=== PATIENT | female | born 1935 | race Caucasian/White ===

== ENCOUNTER 2017-04-18 07:24 | Inpatient (IN) | payer MEDICARE, OTHER ==
[2017-04-18] VITALS (8 sets, daily range): BP systolic 107–155; BP diastolic 57–88; PULSE 64–102; RESP 16–18; TEMP 95.6–100.5; O2SAT 92–99
[~2017-04-18] VITALS: Ht 157.5 cm; Wt 51.2 kg
[~2017-04-18 07:24] MED LIST: ACET325T PO; ASPI-516 CHEW; CIPR250T2 PO; CITA10TA4 PO; DIVA125C2 PO; FOSA70TA PO; METO1TAB42 PO; MILKSUS PO; QUET1TAB7 PO; VITATAB11
[2017-04-18] MEDS ORDERED: PANTOPRAZOLE INJ 80 MG in SODIUM CHLORIDE 0.9% INJ 100 ML IV SCH (07:45)
[2017-04-18] MEDS ORDERED: ONDANSETRON HCL 4 MG/2 ML VIAL IVP ONE (07:45)
[2017-04-18] MEDS ORDERED: PANTOPRAZOLE INJ 80 MG in SODIUM CHLORIDE 0.9% INJ 35 ML IV ONE (07:45)
[2017-04-18] MEDS ORDERED: SODIUM CHLOR 0.9% 1000 ML INJ 1,000 ML IV ONE (07:45)
[2017-04-18] MEDS ORDERED: SODIUM CHLORIDE 0.9% FLUSH 10 ML FLUSH IV FLUSH PRN ×2 (07:45→11:15)
[2017-04-18 08:03] LABS: AUTOMATED NEUTROPHIL # 9.7 TH/MM3 (1.8-7.7); BASOPHIL # 0.1 TH/MM3 (0-0.2); BASOPHIL % 0.5 % (0.0-2.0); EOSINOPHIL # 0.1 TH/MM3 (0-0.4); EOSINOPHIL % 0.5 % (0.0-4.0); HEMO FLAGS DIFF FINAL; LYMPH % 9.9 % (9.0-44.0); LYMPHOCYTE # 1.1 TH/MM3 (1.0-4.8); MEAN CORPUSCULAR HEMOGLOBIN 33.7 PG (27.0-34.0); MEAN CORPUSCULAR HGB CONC 33.8 % (32.0-36.0); MONO % 3.6 % (0.0-8.0); NEUT % 85.5 % (16.0-70.0); PLATELET COUNT 344 TH/MM3 (150-450); RED CELL DISTRIBUTION WIDTH 13.1 % (11.6-17.2); WHITE BLOOD COUNT 11.3 TH/MM3 (4.0-11.0)
[2017-04-18 08:12] LABS: APTT (PATIENT) 24.4 SEC (24.3-30.1); INTERNATIONAL NORMALIZED RATIO 0.9 RATIO; PROTHROMBIN TIME - PATIENT 10.3 SEC (9.8-11.6)
[2017-04-18 08:18] LABS: ALKALINE PHOSPHATASE 73 U/L (45-117); TOTAL BILIRUBIN ADULT 0.4 MG/DL (0.2-1.0)
[2017-04-18 08:24] LABS: ALT (GPT) 19 U/L (10-53); ANION GAP 9 MEQ/L (5-15); AST (GOT) 30 U/L (15-37); BLOOD UREA NITROGEN 30 MG/DL (7-18); CHLORIDE 105 MEQ/L (98-107); GLOMERULAR FILTRATION RATE 48 ML/MIN (>89); SODIUM (NA) 139 MEQ/L (136-145)
--- NOTE | 2017-04-18 08:24 | RADRPT ---
EXAM DATE/TIME: 04/18/2017 08:06 [facility] COMPARISON: CT BRAIN W/O CONTRAST, April 06, 2016, 0:49. INDICATIONS : Altered mental status. RADIATION DOSE: 53.36 CTDIvol (mGy) MEDICAL HISTORY : Hypertension. Dementia. SURGICAL HISTORY : Craniotomy. ENCOUNTER: Initial ACUITY: 1 day PAIN SCALE: Non-responsive LOCATION: cranial TECHNIQUE: Multiple contiguous axial images were obtained of the head. Using automated exposure control and adj ustment of the mA and/or kV according to patient size, radiation dose was kept as low as reasonably a chievable to obtain optimal diagnostic quality images. DICOM format image data is available electro nically for review and comparison. FINDINGS: CEREBRUM: Large area of encephalomalacia in the right posterior temporal, parietal and occipital lobe. Basal ga nglia infarcts right side. Scattered areas of low attenuation throughout the white matter. The ventri cles are normal for age. No evidence of midline shift, mass lesion, hemorrhage or acute infarction. No extra-axial fluid collections are seen. POSTERIOR FOSSA: The cerebellum and brainstem are intact. The 4th ventricle is midline. The cerebellopontine angle i s unremarkable. EXTRACRANIAL: The visualized portion of the orbits is intact. SKULL: The calvaria is intact. No evidence of skull fracture. CONCLUSION: 1. 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 2. No acute intracranial abnormality. Abram Johnson MD on April 18, 2017 at 8:20 Board Certified Radiologist. This report was verified electronically.
[2017-04-18 08:25] LABS: POTASSIUM 4.4 MEQ/L (3.5-5.1)
--- NOTE | 2017-04-18 08:40 | RADRPT ---
EXAM DATE/TIME: 04/18/2017 08:09 [facility] COMPARISON: No previous studies available for comparison. INDICATIONS : Generalized abdominal pain. ORAL CONTRAST: No oral contrast ingested. RADIATION DOSE: 6.67 CTDIvol (mGy) MEDICAL HISTORY : Hypertension. Dementia. SURGICAL HISTORY : Craniotomy. ENCOUNTER: Initial ACUITY: 1 day PAIN SCALE: Non-responsive LOCATION: abdomen TECHNIQUE: Volumetric scanning of the abdomen and pelvis was performed. Using automated exposure control and ad justment of the mA and/or kV according to patient size, radiation dose was kept as low as reasonably achievable to obtain optimal diagnostic quality images. DICOM format image data is available electro nically for review and comparison. FINDINGS: LOWER LUNGS: The visualized lower lungs are clear. LIVER: Homogeneous density without lesion. There is no dilation of the biliary tree. Cholecystectomy. SPLEEN: Normal size without lesion. PANCREAS: Within normal limits. KIDNEYS: Normal in size and shape. There is no mass, stone, or hydronephrosis. ADRENAL GLANDS: Within normal limits. VASCULAR: There is no aortic aneurysm. Extensive atherosclerotic changes and tortuosity. BOWEL/MESENTERY: Diverticulosis without diverticulitis. Small hiatal hernia. There is no free intraperitoneal air or f luid. ABDOMINAL WALL: Within normal limits. RETROPERITONEUM: There is no lymphadenopathy. BLADDER: No wall thickening or mass. Decompressed by Juarez catheter. REPRODUCTIVE: Within normal limits. INGUINAL: There is no lymphadenopathy or hernia. MUSCULOSKELETAL: Scoliosis with multilevel degenerative changes of the thoracolumbar spine. Osteopenia. Kyphoplasty ce ment within T12 and L1 where there are old compression fractures. Mild loss of height of L4. CONCLUSION: 1. Diverticulosis without diverticulitis. 2. Status post cholecystectomy. 3. Small hiatal hernia. Abram Johnson MD on April 18, 2017 at 8:29 Board Certified Radiologist. This report was verified electronically.
[2017-04-18] MEDS ORDERED: PIPERACIL-TAZO 3.375 GM PREMIX 50 ML IV ONE (09:30)
[2017-04-18 09:31] LABS: BLOOD, URINE TRACE (NEG); GLUCOSE,URINE 70 mg/dL (NEG); KETONE, URINE NEG (NEG); NITRITE,URINE NEG (NEG); URINE COLOR YELLOW (YELLW/STRAW)
[2017-04-18 09:50] LABS: BACTERIA, URINE MOD /hpf; RBC, URINE 0-3 /hpf (0-3); SQUAMOUS EPITHELIAL CELL URINE > 8 /hpf (0-5)
[2017-04-18 09:51] LABS: COMMENT (UR) CULTURE INDICATED; CULTURE IF INDICATED CULTURE INDICATED
--- NOTE | 2017-04-18 09:53 | RADRPT ---
EXAM DATE/TIME: 04/18/2017 09:29 [facility] COMPARISON: CHEST SINGLE AP, April 05, 2016, 23:43. ABDOMEN DECUBITUS LEFT, April 06, 2016, 4:49. INDICATIONS : Fever. MEDICAL HISTORY : None. SURGICAL HISTORY : None. ENCOUNTER: Initial ACUITY: 1 day PAIN SCORE: Non-responsive. LOCATION: Bilateral chest FINDINGS: No heart is at the upper limits of normal in size. There mild chronic interstitial changes within the parenchyma. The lungs are otherwise clear. The visualized bony structures demonstrate degenerative c hanges in the shoulders but are otherwise intact. CONCLUSION: 1. No acute cardiopulmonary findings. Galo Elizalde MD on April 18, 2017 at 9:49 Board Certified Radiologist. This report was verified electronically.
--- NOTE | 2017-04-18 10:23 | PD ---
HPI Chief Complaint: GI Complaint Time Seen by Provider: 07:31 Travel History International Travel<30 days: No Contact w/Intl Traveler<30days: No Traveled to known affect area: No History of Present Illness HPI Patient is an 82-year-old female [facility] after an episode of vomiting and diarrhea. Per EMS staff was helping her base when she had an episode of vomiting bright red blood and an episode of loose stool. EMS states that her blood pressure was low on their arrival, but improved with positioning and by the time she came to the emergency department and had improved further after only 100 cc of IV fluid. Patient has history of dementia , but usually is awake and alert. Currently she opens her eyes when spoken to, but does not answer any questions. PFSH Past Medical History Anemia: Yes Arthritis: Yes (OSTEO) Anxiety: Yes Depression: Yes Heart Rhythm Problems: Yes (DIRYTHMIC DISORDER) Cardiovascular Problems: Yes (HTN) Dementia: Yes Diminished Hearing: No GERD: Yes Hypertension: Yes Neurologic: Yes (Demantia) Psychiatric: Yes Social History Alcohol Use: No Tobacco Use: No Substance Use: No Allergies-Medications (Allergen,Severity, Reaction): Coded Allergies: atorvastatin (Unverified Allergy, Unknown, 01/14/17) clotrimazole (Unverified Allergy, Unknown, 01/14/17) diltiazem (Unverified Allergy, Unknown, 01/14/17) iodine (Unverified Allergy, Unknown, 01/14/17) meperidine (Unverified Allergy, Unknown, 01/14/17) nifedipine (Unverified Allergy, Unknown, 01/14/17) potassium iodide (Unverified Allergy, Unknown, 01/14/17) povidone-iodine (Unverified Allergy, Unknown, 01/14/17) propranolol (Unverified Allergy, Unknown, 01/14/17) sertraline (Unverified Allergy, Unknown, 01/14/17) sodium iodide (Unverified Allergy, Unknown, 01/14/17) sodium iodide (Unverified Allergy, Unknown, 01/14/17) Reported Meds & Prescriptions Reported Meds & Active Scripts Active Ciprofloxacin (Ciprofloxacin HCl) 250 Mg Tab 250 Mg PO BID Reported Quetiapine (Quetiapine Fumarate) 25 Mg Tab 25 Mg PO DAILY Acetaminophen 325 Mg Tab 325 Mg PO Q4-6H PRN Divalproex DR (Divalproex Sodium) 125 Mg Capdr 125 Mg PO BID Metoprolol Succinate ER 24 HR (Metoprolol Succinate) 25 Mg Tab 12.5 Mg PO DAILY Vitamin B Complex (B-Complex Vitamins) 1 Tab DAILY Milk of Frantz Liq (Magnesium Hydroxide) 400 Mg/5 Ml Susp 30 Ml PO DAILY PRN Fosamax (Alendronate Sodium) 70 Mg Tab 35 Mg PO Q7D Citalopram (Citalopram Hydrobromide) 10 Mg Tab 10 Mg PO DAILY Aspirin 81 Mg Chew 81 Mg CHEW DAILY Review of Systems ROS Limitations: Clinical Condition Physical Exam Narrative GENERAL: Patient is an 82-year-old female, sleeping but opens her eyes when spoken to. In no acute distress. SKIN: Focused skin assessment warm/dry. No signs of infection. HEAD: Atraumatic. Normocephalic. EYES: Pupils equal and round and reactive. No scleral icterus. ENT: Mucous membranes pink and moist. NECK: Trachea midline. No JVD. CARDIOVASCULAR: Regular rate and rhythm. No murmur appreciated. RESPIRATORY: No accessory muscle use. Clear to auscultation. Breath sounds equal bilaterally. GASTROINTESTINAL: Abdomen soft, non-tender, nondistended. Stool is black and tarry but negative for occult blood. MUSCULOSKELETAL: No obvious deformities. No clubbing. No cyanosis. No edema. NEUROLOGICAL: Awake and alert. No obvious cranial nerve deficits. Motor grossly within normal limits. Normal speech. PSYCHIATRIC: Appropriate mood and affect; insight and judgment normal. Data Data Last Documented VS Vital Signs Date Time Temp Pulse Resp B/P (MAP) Pulse Ox O2 Delivery O2 Flow Rate FiO2 04/18/17 10:24 96.3 81 16 123/82 (96) 95 Nasal Cannula 2.00 Orders Orders Complete Blood Count With Diff (04/18/17 07:32) Comprehensive Metabolic Panel (04/18/17 07:32) Lactic Acid (04/18/17 07:32) Prothrombin Time / Inr (Pt) (04/18/17 07:32) Act Partial Throm Time (Ptt) (04/18/17 07:32) Urinalysis - C+S If Indicated (04/18/17 07:32) Iv Access Insert/Monitor (04/18/17 07:32) Ecg Monitoring (04/18/17 07:32) Oximetry (04/18/17 07:32) Ondansetron Inj (Zofran Inj) (04/18/17 07:45) Sodium Chloride 0.9% Flush (Ns Flush) (04/18/17 07:45) Electrocardiogram (04/18/17 07:32) Troponin I (04/18/17 07:32) Type And Screen (04/18/17 07:32) Sodium Chlor 0.9% 1000 Ml Inj (Ns 1000 M (04/18/17 07:45) Pantoprazole Inj (Protonix Inj) (04/18/17 07:45) Pantoprazole Inj (Protonix Inj) (04/18/17 07:45) Urinary Catheter Management OLIVIA.Q8H (04/18/17 07:33) Ct Abd/Pel W/O Iv Contrast (04/18/17 ) Ct Brain W/O Iv Contrast(Rout) (04/18/17 ) Chest, Single Ap (04/18/17 ) Warming [place] / Warming Syst PRN (04/18/17 09:22) Piperacil-Tazo 3.375 Gm Premix (Zosyn 3. (04/18/17 09:30) Blood Culture (04/18/17 09:22) Urine Culture (04/18/17 09:10) Admit Order (Ed Use Only) (04/18/17 ) Comprehensive Metabolic Panel (04/19/17 06:00) Free Thyroxine (T4) (04/19/17 06:00) Hemoglobin (Hgb) A1c (04/19/17 06:00) Magnesium (Mg) (04/19/17 06:00) Phosphorus (Po4) (04/19/17 06:00) Thyroid Stimulating Hormone (04/19/17 06:00) Complete Blood Count With Diff (04/19/17 06:00) Insulin Aspart Supplemtl Scale (Novolog (04/18/17 12:00) Bedside Glucose OLIVIA.CSUGAR (04/18/17 11:08) Blood Glucose Goal (Criteria) (04/18/17 11:08) Hypoglycemia 70 Mg/Dl Or < (04/18/17 11:08) Notify Dr: Other (04/18/17 11:08) Dextrose 50% In Jesus (Vial) Inj (D50w (Vi (04/18/17 11:15) Glucagon Inj (Glucagon Inj) (04/18/17 11:15) Case Management Consult (04/18/17 ) Labs Laboratory Tests Test 04/18/17 07:42 04/18/17 09:10 White Blood Count 11.3 TH/MM3 Red Blood Count 3.80 MIL/MM3 Hemoglobin 12.8 GM/DL Hematocrit 38.0 % Mean Corpuscular Volume 100.0 FL Mean Corpuscular Hemoglobin 33.7 PG Mean Corpuscular Hemoglobin Concent 33.8 % Red Cell Distribution Width 13.1 % Platelet Count 344 TH/MM3 Mean Platelet Volume 8.3 FL Neutrophils (%) (Auto) 85.5 % Lymphocytes (%) (Auto) 9.9 % Monocytes (%) (Auto) 3.6 % Eosinophils (%) (Auto) 0.5 % Basophils (%) (Auto) 0.5 % Neutrophils # (Auto) 9.7 TH/MM3 Lymphocytes # (Auto) 1.1 TH/MM3 Monocytes # (Auto) 0.4 TH/MM3 Eosinophils # (Auto) 0.1 TH/MM3 Basophils # (Auto) 0.1 TH/MM3 CBC Comment DIFF FINAL Differential Comment Prothrombin Time 10.3 SEC Prothromb Time International Ratio 0.9 RATIO Activated Partial Thromboplast Time 24.4 SEC Blood Urea Nitrogen 30 MG/DL Creatinine 1.08 MG/DL Random Glucose 172 MG/DL Total Protein 7.3 GM/DL Albumin 3.0 GM/DL Calcium Level 9.1 MG/DL Alkaline Phosphatase 73 U/L Aspartate Amino Transf (AST/SGOT) 30 U/L Alanine Aminotransferase (ALT/SGPT) 19 U/L Total Bilirubin 0.4 MG/DL Sodium Level 139 MEQ/L Potassium Level 4.4 MEQ/L Chloride Level 105 MEQ/L Carbon Dioxide Level 25.0 MEQ/L Anion Gap 9 MEQ/L Estimat Glomerular Filtration Rate 48 ML/MIN Lactic Acid Level 2.5 mmol/L Troponin I LESS THAN 0.02 NG/ML Urine Color YELLOW Urine Turbidity HAZY Urine pH 8.0 Urine Specific [place] 1.013 Urine Protein 30 mg/dL Urine Glucose (UA) 70 mg/dL Urine Ketones NEG mg/dL Urine Occult Blood TRACE Urine Nitrite NEG Urine Bilirubin NEG Urine Urobilinogen LESS THAN 2.0 MG/DL Urine Leukocyte Esterase MOD Urine RBC 0-3 /hpf Urine WBC 25-49 /hpf Urine Squamous Epithelial Cells > 8 /hpf Urine Amorphous Sediment SMALL Urine Bacteria MOD /hpf Urine Hyaline Casts 6-9 /lpf Microscopic Urinalysis Comment CULTURE INDICATED MDM Medical Decision Making Medical Screen Exam Complete: Yes Emergency Medical Condition: Yes Medical Record Reviewed: Yes Interpretation(s) ECG shows normal sinus rhythm with occasional PVCs, no ST elevation or depression Differential Diagnosis Sepsis versus ICH versus GI bleed versus pneumonia versus UTI Narrative Course Patient is an 82-year-old female [facility] after an episode of vomiting and diarrhea. There is no blood in her stool. Exam shows a somewhat lethargic woman, who awakens easily to verbal stimuli. IV established, labs sent. White blood cell count is 11.3. Urinalysis positive for UTI. Lactic acid and creatinine is within normal limits. CT head and abdomen and pelvis show no acute abnormalities. Patient given IV fluids, given a dose of Zosyn to cover broadly prior to source being identified. Patient admitted for UTI with sepsis. Diagnosis Primary Impression: UTI (urinary tract infection) Qualified Codes: N30.00 - Acute cystitis without hematuria Additional Impression: Sepsis Qualified Codes: A41.9 - Sepsis, unspecified organism Admitting Information Admitting Physician Requests: Admit Park Celestin MD Apr 18, 2017 10:23
[2017-04-18] MEDS ORDERED: ACETAMINOPHEN 325 MG TAB PO PRN (11:15)
[2017-04-18] MEDS ORDERED: MORPHINE SULFATE 4 MG/ML INJ IV PUSH PRN ×2 (11:15)
[2017-04-18] MEDS ORDERED: GLUCAGON 1 MG/ML VIAL OTHER PRN (11:15)
[2017-04-18] MEDS ORDERED: NALOXONE HCL 0.4 MG/ML AMP IV PUSH PRN (11:15)
[2017-04-18] MEDS ORDERED: ACETAMINOPHEN/HYDROcodone 325 MG/10 MG TAB PO PRN (11:15)
[2017-04-18] MEDS ORDERED: BISACODYL 10 MG SUPP RECTAL PRN (11:15)
[2017-04-18] MEDS ORDERED: PROCHLORPERAZINE 25 MG SUPP RECTAL PRN (11:15)
[2017-04-18] MEDS ORDERED: SENNOSIDES 8.6 MG TAB PO PRN (11:15)
[2017-04-18] MEDS ORDERED: ACETAMINOPHEN/HYDROcodone 325 MG/5 MG TAB PO PRN (11:15)
[2017-04-18] MEDS ORDERED: MAGNESIUM HYDROXIDE SUSP 30 ML CUP PO PRN (11:15)
[2017-04-18] MEDS ORDERED: DEXTROSE 50% IN WATER 50 ML VIAL(D50) IV PUSH PRN (11:15)
[2017-04-18] MEDS ORDERED: ONDANSETRON HCL 4 MG/2 ML VIAL IVP PRN (11:15)
[2017-04-18] MEDS ORDERED: LACTULOSE SYRUP 20 GM/30 ML CUP PO PRN (11:15)
[2017-04-18] MEDS ORDERED: PILL SPLITTER OTHER PRN (11:45)
[2017-04-18] MEDS: SODIUM CHLOR 0.9% 1000 ML INJ 1,000 ML IV SCH ×2 (11:54→22:17)
[2017-04-18] MEDS ORDERED: cefTRIAXone INJ 1,000 MG in SODIUM CHLORIDE 0.9% INJ 100 ML IV SCH (12:00)
[2017-04-18] MEDS: INSULIN ASPART SUPPLEMENTAL SCALE SQ SCH ×3 (12:00→22:19)
[2017-04-18] MEDS: ASPIRIN 81 MG CHEW TAB CHEW SCH (12:43)
--- NOTE | 2017-04-18 14:26 | HHI.HP ---
[facility] [place] No Primary Care Physician Admission Diagnosis UTI, Sepsis Diagnoses: (1) Alzheimer's dementia Diagnosis: Secondary (2) UTI (urinary tract infection) Diagnosis: Principal (3) Sepsis Diagnosis: Principal (4) Vomiting Diagnosis: Secondary (5) Altered mental status Diagnosis: Principal (6) Hypertension Diagnosis: Secondary (7) GERD (gastroesophageal reflux disease) Diagnosis: Secondary (8) Depression Diagnosis: Secondary (9) Anxiety Diagnosis: Secondary Chief Complaint: GI complaint Travel History International Travel<30 Days: No Contact w/Intl Traveler <30 Da: No Traveled to Known Affected Are: No Sepsis Criteria SIRS Criteria (2 or more): Heart rate over 90 Sepsis Criteria (SIRS+source): Infect source susp/known Severe Sepsis (+one): Lactate >2 History of Present Illness Patient is an 82-year-old female [facility] after an episode of vomiting and diarrhea. Per EMS staff was helpful at her baseline had some episode of vomiting and episode of loose stools and has states the blood pressure was low on arrival but improved with positioning and by the time she came to emergency department and improved to almost normal with only 100 mL's of IV fluid has history of dementia usually awake and alert and able to follow some commands and moves all 4 extremities Was found to have urinary tract infection and will be admitted and treated with Rocephin. Patient is also noted to be a DO NOT RESUSCITATE. The paperwork has been red and made a DO NOT RESUSCITATE here Discussed with the patient are N and the emergency room physician Review of Systems ROS Limitations: Altered Mental Status Constitutional: DENIES: Diaphoretic episodes, Fatigue, Fever, Weight gain, Weight loss Endocrine: DENIES: Abnorml menstrual pattern, Heat/cold intolerance Eyes: DENIES: Blurred vision, Diplopia, Eye inflammation Ears, nose, mouth, throat: DENIES: Tinnitus, Hearing loss, Vertigo, Odynophagia Respiratory: DENIES: Apneas, Cough, Snoring Cardiovascular: DENIES: Chest pain, Palpitations, Syncope Gastrointestinal: COMPLAINS OF: Nausea, Vomiting, DENIES: Abdominal pain, Black stools, Bloody stools, Constipation, Diarrhea Musculoskeletal: DENIES: Joint pain, Muscle aches, Stiffness Integumentary: DENIES: Abnormal pigmentation, Pruritus Hematologic/lymphatic: DENIES: Bruising, Lymphadenopathy Immunologic/allergic: DENIES: Eczema Psychiatric: COMPLAINS OF: Anxiety, Confusion, Depression Except as stated in HPI: all other systems reviewed are Neg Past Family Social History Past Medical History Anemia by history Osteoarthritis Anxiety Depression Dementia Hypertension GERD Dementia History of cardiac rhythm issues Past Surgical History Brain surgery in 2007 Cholecystectomy Reported Medications Reported Meds & Active Scripts Active Ciprofloxacin (Ciprofloxacin HCl) 250 Mg Tab 250 Mg PO BID Reported Quetiapine (Quetiapine Fumarate) 25 Mg Tab 25 Mg PO DAILY Acetaminophen 325 Mg Tab 325 Mg PO Q4-6H PRN Divalproex DR (Divalproex Sodium) 125 Mg Capdr 125 Mg PO BID Metoprolol Succinate ER 24 HR (Metoprolol Succinate) 25 Mg Tab 12.5 Mg PO DAILY Vitamin B Complex (B-Complex Vitamins) 1 Tab DAILY Milk of Magnesia Liq (Magnesium Hydroxide) 400 Mg/5 Ml Susp 30 Ml PO DAILY PRN Fosamax (Alendronate Sodium) 70 Mg Tab 35 Mg PO Q7D Citalopram (Citalopram Hydrobromide) 10 Mg Tab 10 Mg PO DAILY Aspirin 81 Mg Chew 81 Mg CHEW DAILY Allergies: Coded Allergies: atorvastatin (Unverified Allergy, Unknown, 01/14/17) clotrimazole (Unverified Allergy, Unknown, 01/14/17) diltiazem (Unverified Allergy, Unknown, 01/14/17) iodine (Unverified Allergy, Unknown, 01/14/17) meperidine (Unverified Allergy, Unknown, 01/14/17) nifedipine (Unverified Allergy, Unknown, 01/14/17) potassium iodide (Unverified Allergy, Unknown, 01/14/17) povidone-iodine (Unverified Allergy, Unknown, 01/14/17) propranolol (Unverified Allergy, Unknown, 01/14/17) sertraline (Unverified Allergy, Unknown, 01/14/17) sodium iodide (Unverified Allergy, Unknown, 01/14/17) sodium iodide (Unverified Allergy, Unknown, 01/14/17) Active Ordered Medications Current Medications Ondansetron HCl (Zofran Inj) 4 mg ONCE ONCE IVP Last administered on 08:59; Start 04/18/17 at 07:45; Stop 04/18/17 at 07:46; Status DC Sodium Chloride (NS Flush) 2 ml UNSCH PRN IV FLUSH FLUSH AFTER USING IV ACCESS ; Start 04/18/17 at 07:45; Stop 04/18/17 at 11:35; Status DC Sodium Chloride 1,000 ml @ 999 mls/hr BOLUS ONCE IV Last administered on 08:00; Start 04/18/17 at 07:45; Stop 04/18/17 at 08:45; Status DC Pantoprazole Sodium 80 mg/ Sodium Chloride 100 ml @ 10 mls/hr CONTINUOUS IV Last administered on 04/18/17 10:29; Start 04/18/17 at 07:45 Pantoprazole Sodium 80 mg/ Sodium Chloride 35 ml @ 420 mls/hr BOLUS ONCE IV Last administered on 04/18/17 08:58; Start 04/18/17 at 07:45; Stop 04/18/17 at 07:49; Status DC Piperacillin Sod/ Tazobactam Sod 50 ml @ 100 mls/hr ONCE ONCE IV Last administered on 04/18/17 09:30; Start 04/18/17 at 09:30; Stop 04/18/17 at 09 :59; Status DC Insulin Aspart (NovoLOG SUPPLEMENTAL SCALE) 1 ACHS SLIDING SCALE SQ ; Start at 12:00 Dextrose (D50w (Vial) Inj) 50 ml UNSCH PRN IV PUSH HYPOGLYCEMIA-SEE COMMENTS; Start 04/18/17 at 11:15 Glucagon (Glucagon Inj) 1 mg UNSCH PRN OTHER HYPOGLYCEMIA-SEE COMMENTS; Start 04/18/17 at 11:15 Sodium Chloride 1,000 ml @ 100 mls/hr Q10H IV Last administered on 04/18/17 11:54; Start 04/18/17 at 11:08 Sodium Chloride (NS Flush) 2 ml UNSCH PRN IV FLUSH FLUSH AFTER USING IV ACCESS ; Start 04/18/17 at 11:15 Sodium Chloride (NS Flush) 2 ml BID IV FLUSH ; Start 04/18/17 at 21:00 Acetaminophen (Tylenol) 650 mg Q4H PRN PO TEMP > 100.4; Start 04/18/17 at 11: 15 Ondansetron HCl (Zofran Inj) 4 mg Q6H PRN IVP NAUSEA OR VOMITING; Start at 11:15 Prochlorperazine (Compazine Supp) 25 mg Q12H PRN RECTAL NAUSEA OR VOMITING; Start 04/18/17 at 11:15 Enoxaparin Sodium (Lovenox Inj) 30 mg Q24H SQ ; Start 04/18/17 at 12:00 Acetaminophen (Tylenol) 650 mg Q6H PRN PO PAIN SCALE 1 TO 2; Start 04/18/17 at 11:15 Acetaminophen/ Hydrocodone Bitart ([place] 5-325 Mg) 1 tab Q4H PRN PO PAIN SCALE 3 TO 5; Start 04/18/17 at 11:15 Acetaminophen/ Hydrocodone Bitart ([place] 10-325 Mg) 1 tab Q4H PRN PO PAIN SCALE 6 TO 10; Start 04/18/17 at 11:15 Morphine Sulfate (Morphine Inj) 2 mg Q3H PRN IV PUSH Pain 3-5; if unable to take PO; Start 04/18/17 at 11:15 Morphine Sulfate (Morphine Inj) 4 mg Q3H PRN IV PUSH Pain 6-10;if unable to take PO; Start 04/18/17 at 11:15 Naloxone HCl (Narcan Inj) 0.4 mg UNSCH PRN IV PUSH SEE LABEL COMMENTS; Start 04/18/17 at 11:15 Senna/Docusate Sodium (Genevieve-Colace) 1 tab BID PO ; Start 04/18/17 at 21:00 Magnesium Hydroxide (Milk Of Magnesia Liq) 30 ml Q12H PRN PO Mild constipation ; Start 04/18/17 at 11:15 Sennosides (Senokot) 17.2 mg Q12H PRN PO Moderate constipation; Start at 11:15 Bisacodyl (Dulcolax Supp) 10 mg DAILY PRN RECTAL SEVERE CONSITIPATION; Start 04/18/17 at 11:15 Lactulose (Lactulose Liq) 30 ml DAILY PRN PO SEVERE CONSITIPATION; Start 04/18 at 11:15 Aspirin (Aspirin Chew) 81 mg DAILY CHEW Last administered on 04/18/17t 12:43; Start 04/18/17 at 12:00 Citalopram Hydrobromide (CeleXA) 10 mg DAILY PO ; Start 04/18/17 at 12:00 Divalproex Sodium (Depakote Sprinkles) 125 mg BID PO ; Start 04/18/17 at 12:00 Metoprolol Succinate (Toprol Xl) 12.5 mg DAILY PO ; Start 04/18/17 at 12:00 Quetiapine Fumarate (SEROquel) 25 mg DAILY PO ; Start 04/18/17 at 12:00 Ceftriaxone Sodium 1000 mg/ Sodium Chloride 100 ml @ 200 mls/hr Q24H IV Last administered on 04/18/17t 12:43; Start 04/18/17 at 12:00 Miscellaneous (Pill Splitter) 1 ea UNSCH PRN OTHER SEE LABEL COMMENTS; Start 04/18/17 at 11:45 Family History Unobtainable from the patient Social History Lives in a halfway facility does not smoke does not drink or use illicit drugs Physical Exam Vital Signs Vital Signs Date Time Temp Pulse Resp B/P (MAP) Pulse Ox O2 Delivery O2 Flow Rate FiO2 04/18/17 12:12 96 Nasal Cannula 2.00 04/18/17 12:11 98.6 86 16 135/73 (93) 96 Nasal Cannula 2.00 04/18/17 10:24 96.3 81 16 123/82 (96) 95 Nasal Cannula 2.00 04/18/17 09:30 96.5 04/18/17 08:36 71 16 148/87 (107) 99 Nasal Cannula 2.00 04/18/17 07:27 95.6 64 16 107/57 (74) 92 Physical Exam GENERAL: This is a well-nourished, well-developed patient, in no apparent distress. SKIN: No rashes, ecchymoses or lesions. Cool and dry. HEAD: Atraumatic. Normocephalic. No temporal or scalp tenderness. EYES: Pupils equal round and reactive. Extraocular motions intact. No scleral icterus. No injection or drainage. ENT: Nose without bleeding, purulent drainage or septal hematoma. Throat without erythema, tonsillar hypertrophy or exudate. Uvula midline. Airway patent. Tongue is midline NECK: Trachea midline. No JVD or lymphadenopathy. Supple, nontender, no meningeal signs. CARDIOVASCULAR: Regular rate and rhythm without murmurs, gallops, or rubs. RESPIRATORY: Clear to auscultation. Breath sounds equal bilaterally. No wheezes , rales, or rhonchi. GASTROINTESTINAL: Abdomen soft, non-tender, nondistended. No hepato-splenomegaly , or palpable masses. No guarding. MUSCULOSKELETAL: Extremities without clubbing, cyanosis, or edema. No joint tenderness, effusion, or edema noted. No calf tenderness. Negative Homans sign bilaterally. NEUROLOGICAL: Awake and alert. Cranial nerves II through XII intact. Motor and sensory grossly within normal limits. 4 out of 5 muscle strength in all muscle groups. abNormal speech. Insight and judgment is limited Mood and behavior is not appropriate Laboratory Laboratory Tests Test 04/18/17 07:42 04/18/17 09:10 04/18/17 13:48 White Blood Count 11.3 Red Blood Count 3.80 Hemoglobin 12.8 Hematocrit 38.0 Mean Corpuscular Volume 100.0 Mean Corpuscular Hemoglobin 33.7 Mean Corpuscular Hemoglobin Concent 33.8 Red Cell Distribution Width 13.1 Platelet Count 344 Mean Platelet Volume 8.3 Neutrophils (%) (Auto) 85.5 Lymphocytes (%) (Auto) 9.9 Monocytes (%) (Auto) 3.6 Eosinophils (%) (Auto) 0.5 Basophils (%) (Auto) 0.5 Neutrophils # (Auto) 9.7 Lymphocytes # (Auto) 1.1 Monocytes # (Auto) 0.4 Eosinophils # (Auto) 0.1 Basophils # (Auto) 0.1 CBC Comment DIFF FINAL Differential Comment Prothrombin Time 10.3 Prothromb Time International Ratio 0.9 Activated Partial Thromboplast Time 24.4 Blood Urea Nitrogen 30 Creatinine 1.08 Random Glucose 172 Total Protein 7.3 Albumin 3.0 Calcium Level 9.1 Alkaline Phosphatase 73 Aspartate Amino Transf (AST/SGOT) 30 Alanine Aminotransferase (ALT/SGPT) 19 Total Bilirubin 0.4 Sodium Level 139 Potassium Level 4.4 Chloride Level 105 Carbon Dioxide Level 25.0 Anion Gap 9 Estimat Glomerular Filtration Rate 48 Lactic Acid Level 2.5 Troponin I LESS THAN 0.02 Urine Color YELLOW Urine Turbidity HAZY Urine pH 8.0 Urine Specific [place] 1.013 Urine Protein 30 Urine Glucose (UA) 70 Urine Ketones NEG Urine Occult Blood TRACE Urine Nitrite NEG Urine Bilirubin NEG Urine Urobilinogen LESS THAN 2.0 Urine Leukocyte Esterase MOD Urine RBC 0-3 Urine WBC 25-49 Urine Squamous Epithelial Cells > 8 Urine Amorphous Sediment SMALL Urine Bacteria MOD Urine Hyaline Casts 6-9 Microscopic Urinalysis Comment CULTURE INDICATED Date/Time Source Procedure Growth Status 04/18/17 09:40 Blood Peripheral Aerobic Blood Culture Pending Received 04/18/17 09:40 Blood Peripheral Anaerobic Blood Culture Pending Received 04/18/17 09:10 Urine Clean Catch Urine Culture Pending Received Result Diagram: 04/18/17 0742 04/18/17 0742 Imaging Last Impressions Head CT 04/18/17 0000 Signed Impressions: Service Date/Time: Tuesday, April 18, 2017 08:06 - CONCLUSION: 1. 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 2. No acute intracranial abnormality. Abram Johnson MD Chest X-Ray 04/18/17 0000 Signed Impressions: Service Date/Time: Tuesday, April 18, 2017 09:29 - CONCLUSION: 1. No acute cardiopulmonary findings. Galo Elizalde MD Abdomen/Pelvis CT 04/18/17 0000 Signed Impressions: Service Date/Time: Tuesday, April 18, 2017 08:09 - CONCLUSION: 1. Diverticulosis without diverticulitis. 2. Status post cholecystectomy. 3. Small hiatal hernia. Abram Johnson MD Caprini VTE Risk Assessment Caprini VTE Risk Assessment: Mod/High Risk (score >= 2) Caprini Risk Assessment Model Point Value = 1 Point Value = 2 Point Value = 3 Point Value = 5 Age 41-60 Minor surgery BMI > 25 kg/m2 Swollen legs Varicose veins or History of unexplained or recurrent spontaneous Oral contraceptives or hormone replacement Sepsis (< 1 month) Serious lung disease, including pneumonia (< 1 month) Abnormal pulmonary function Acute myocardial infarction Congestive heart failure (< 1 month) History of inflammatory bowel disease Medical patient at bed rest Age 61-74 Arthroscopic surgery Major open surgery (> 45 min) Laparoscopic surgery (> 45 min) Malignancy Confined to bed (> 72 hours) Immobilizing plaster cast Central venous access Age >= 75 History of VTE Family history of VTE Factor V Leiden Prothrombin [id number] Lupus anticoagulant Anticardiolipin antibodies Elevated serum homocysteine Heparin-induced thrombocytopenia Other congenital or acquired thrombophilia Stroke (< 1 month) Elective arthroplasty Hip, pelvis, or leg fracture Acute spinal cord injury (< 1 month) Prophylaxis Regimen Total Risk Factor Score Risk Level Prophylaxis Regimen 0-1 Low Early ambulation 2 Moderate Order ONE of the following: *Sequential Compression Device (SCD) *Heparin 5000 units SQ BID 3-4 Higher Order ONE of the following medications: *Heparin 5000 units SQ TID *Enoxaparin/Lovenox 40 mg SQ daily (WT < 150 kg, CrCl > 30 mL/min) *Enoxaparin/Lovenox 30 mg SQ daily (WT < 150 kg, CrCl > 10-29 mL/min) *Enoxaparin/Lovenox 30 mg SQ BID (WT < 150 kg, CrCl > 30 mL/min) AND/OR *Sequential Compression Device (SCD) 5 or more Highest Order ONE of the following medications: *Heparin 5000 units SQ TID (Preferred with Epidurals) *Enoxaparin/Lovenox 40 mg SQ daily (WT < 150 kg, CrCl > 30 mL/min) *Enoxaparin/Lovenox 30 mg SQ daily (WT < 150 kg, CrCl > 10-29 mL/min) *Enoxaparin/Lovenox 30 mg SQ BID (WT < 150 kg, CrCl > 30 mL/min) AND *Sequential Compression Device (SCD) Assessment and Plan Problem List: (1) GERD (gastroesophageal reflux disease) ICD Code: K21.9 - Gastro-esophageal reflux disease without esophagitis (2) Hypertension ICD Code: I10 - Essential (primary) hypertension (3) Depression ICD Code: F32.9 - Major depressive disorder, single episode, unspecified (4) Anxiety ICD Code: F41.9 - Anxiety disorder, unspecified (5) Alzheimer's dementia ICD Code: G30.9 - Alzheimer's disease, unspecified (6) Vomiting ICD Code: R11.10 - Vomiting, unspecified Status: Acute (7) Altered mental status ICD Code: R41.82 - Altered mental status, unspecified Status: Acute (8) UTI (urinary tract infection) ICD Code: N39.0 - Urinary tract infection, site not specified Status: Acute (9) Sepsis ICD Code: A41.9 - Sepsis, unspecified organism Status: Acute Assessment and Plan Urinary tract infection/sepsis continue on Rocephin. Continue on fluids continue on Rocephin 1 g IV daily. Her urinalysis was positive for UTI Her lactic acid was stable creatinine within normal limits CT of the head showed no acute abnormalities CT of the abdomen and pelvis is stable patient was given aggressive IV fluid rehydration and started on Rocephin. Has history of hypertension restart home medications Has history of GERD placed on Pepcid Dementia monitor Debility will get physical therapy and occupational therapy to eval and treat Is a DO NOT RESUSCITATE well treat as aggressively as we can without violating this Will go back to the halfway facility when she has had improvement We'll get a.m. labs Continue physical therapy and occupational therapy Has Juarez catheter in place Physician Certification 2 Midnight Certification Type: Admission for Inpatient Services Order for Inpatient Services The services are ordered in accordance with Medicare regulations or non- Medicare payer requirements, as applicable. In the case of services not specified as inpatient-only, they are appropriately provided as inpatient services in accordance with the 2-midnight benchmark. Estimated LOS (days): 3 3 days is the estimated time the patient will need to remain in the hospital, assuming treatment plan goals are met and no additional complications. Post-Hospital Plan: SNF Problem Qualifiers (1) UTI (urinary tract infection): Qualified Codes: N30.00 - Acute cystitis without hematuria (2) Sepsis: Qualified Codes: A41.9 - Sepsis, unspecified organism Faraz Pleitez DO Apr 18, 2017 14:26
[2017-04-18 14:37] LABS: CREATINE KINASE 26 U/L (26-192)
[2017-04-18] MEDS: DIVALPROEX SODIUM SPRINKLES 125 MG CAP PO SCH ×2 (14:58→22:16)
[2017-04-18] MEDS: CITALOPRAM HYDROBROMIDE 20 MG TAB PO SCH (15:00)
[2017-04-18] MEDS: METOPROLOL SUCCINATE 25 MG EXTENDED RELEASE TAB PO SCH (15:00)
[2017-04-18] MEDS: ENOXAPARIN SODIUM 30 MG/0.3 ML SYRINGE SQ SCH (15:01)
[2017-04-18] MEDS: QUEtiapine FUMARATE 25 MG TAB PO SCH (15:01)
--- NOTE | 2017-04-18 16:25 | EKG ---
Date Performed: 04/18/2017 Time Performed: 07:45:35 PTAGE: 82 years EKG: Sinus rhythm WITH OCCASIONAL SUPRAVENTRICULAR PREMATURE COMPLEXES LEFT VENTRICULAR HYPERTROPHY AND ST-T CHANGE PO SSIBLE SEPTAL MYOCARDIAL INFARCTION BORDERLINE LEFT AXIS DEVIATION ABNORMAL ECG Since PREVIOUS TRACING , no significant change noted PREVIOUS TRACIN04/06/2016 01.29 DOCTOR: Ric Cooper Interpretating Date/Time 04/18/2017 16:23:29
[2017-04-18 17:57] LABS: CREATINE KINASE 25 U/L (26-192)
[2017-04-18] MEDS: SODIUM CHLORIDE 0.9% FLUSH 10 ML FLUSH IV FLUSH SCH (22:12)
[2017-04-18] MEDS: FAMOTIDINE 20 MG TAB PO SCH (22:16)
[2017-04-18] MEDS: ACETAMINOPHEN 325 MG TAB PO PRN (22:16)
[2017-04-18] MEDS: DOCUSATE SODIUM 50 MG/SENNA 8.6 MG TAB PO SCH (22:16)
[2017-04-19] VITALS (11 sets, daily range): BP systolic 130–173; BP diastolic 60–85; PULSE 61–83; RESP 16–18; TEMP 95.3–100.1; O2SAT 94–98
[2017-04-19 07:53] LABS: AUTOMATED NEUTROPHIL # 7.9 TH/MM3 (1.8-7.7); BASOPHIL % 0.2 % (0.0-2.0); EOSINOPHIL % 0.3 % (0.0-4.0); HEMATOCRIT 29.6 % (35.0-46.0); HEMO FLAGS DIFF FINAL; LYMPH % 9.5 % (9.0-44.0); LYMPHOCYTE # 0.9 TH/MM3 (1.0-4.8); MEAN CELL VOLUME 100.7 FL (80.0-100.0); MEAN CORPUSCULAR HEMOGLOBIN 33.7 PG (27.0-34.0); MEAN CORPUSCULAR HGB CONC 33.5 % (32.0-36.0); PLATELET COUNT 241 TH/MM3 (150-450); RED BLOOD COUNT 2.94 MIL/MM3 (4.00-5.30); RED CELL DISTRIBUTION WIDTH 13.1 % (11.6-17.2); WHITE BLOOD COUNT 9.2 TH/MM3 (4.0-11.0)
[2017-04-19] MEDS: INSULIN ASPART SUPPLEMENTAL SCALE SQ SCH (07:58)
[2017-04-19] MEDS: CITALOPRAM HYDROBROMIDE 20 MG TAB PO SCH (08:00)
[2017-04-19] MEDS: DIVALPROEX SODIUM SPRINKLES 125 MG CAP PO SCH ×2 (08:00→21:44)
[2017-04-19] MEDS: DOCUSATE SODIUM 50 MG/SENNA 8.6 MG TAB PO SCH ×2 (08:00→21:44)
[2017-04-19] MEDS: SODIUM CHLOR 0.9% 1000 ML INJ 1,000 ML IV SCH ×2 (08:00→17:08)
[2017-04-19] MEDS: QUEtiapine FUMARATE 25 MG TAB PO SCH (08:00)
[2017-04-19] MEDS: METOPROLOL SUCCINATE 25 MG EXTENDED RELEASE TAB PO SCH (08:01)
[2017-04-19] MEDS: ASPIRIN 81 MG CHEW TAB CHEW SCH (08:01)
[2017-04-19] MEDS: FAMOTIDINE 20 MG TAB PO SCH ×2 (08:01→21:44)
[2017-04-19] MEDS: SODIUM CHLORIDE 0.9% FLUSH 10 ML FLUSH IV FLUSH SCH ×2 (08:07→21:48)
[2017-04-19 08:19] LABS: ALT (GPT) 22 U/L (10-53); ANION GAP 7 MEQ/L (5-15); AST (GOT) 19 U/L (15-37); BICARBONATE 24.7 MEQ/L (21.0-32.0); BLOOD UREA NITROGEN 27 MG/DL (7-18); CHLORIDE 110 MEQ/L (98-107); GLOMERULAR FILTRATION RATE 60 ML/MIN (>89); MAGNESIUM 1.7 MG/DL (1.5-2.5); POTASSIUM 3.6 MEQ/L (3.5-5.1); SODIUM (NA) 142 MEQ/L (136-145)
[2017-04-19 08:20] LABS: ALKALINE PHOSPHATASE 59 U/L (45-117); FREE T4 1.32 NG/DL (0.76-1.46); TOTAL BILIRUBIN ADULT 0.6 MG/DL (0.2-1.0)
[2017-04-19] MEDS ORDERED: Vancomycin Consult Pharmacy 1 EA OTHER SCH (09:00)
--- NOTE | 2017-04-19 09:59 | HHI.PR ---
Subjective Remarks Patient is an 82-year-old female brought in from the care home facility after an episode of vomiting and diarrhea. Per EMS staff was helpful at her baseline had some episode of vomiting and episode of loose stools and has states the blood pressure was low on arrival but improved with positioning and by the time she came to emergency department and improved to almost normal with only 100 mL's of IV fluid has history of dementia usually awake and alert and able to follow some commands and moves all 4 extremities Was found to have urinary tract infection and will be admitted and treated with Rocephin. Patient is also noted to be a DO NOT RESUSCITATE. The paperwork has been red and made a DO NOT RESUSCITATE here Discussed with the patient are N and the emergency room physician 04-19 CALLED BY RN THAT BLOOD CULTURES ARE POSITIVE AND GROWING ADJUST UP TO ZOSYN AND VANCO AM LABS CONTINUE PT AND OT DW PATIENT AND RN Objective Vitals Vital Signs Date Time Temp Pulse Resp B/P (MAP) Pulse Ox O2 Delivery O2 Flow Rate FiO2 04/19/17 08:08 70 04/19/17 08:00 95.3 61 18 141/85 (103) 95 04/19/17 04:10 95 Nasal Cannula 2.00 04/19/17 04:00 97.6 73 16 173/75 (107) 98 04/19/17 00:00 100.1 83 18 142/65 (90) 95 04/18/17 20:00 100 04/18/17 20:00 100.5 102 18 123/88 (100) 95 04/18/17 15:00 97.0 102 18 155/74 (101) 99 04/18/17 12:12 96 Nasal Cannula 2.00 04/18/17 12:11 98.6 86 16 135/73 (93) 96 Nasal Cannula 2.00 04/18/17 10:24 96.3 81 16 123/82 (96) 95 Nasal Cannula 2.00 I/O 04/18/17 04/18/17 04/18/17 04/19/17 04/19/17 04/19/17 07:00 15:00 23:00 07:00 15:00 23:00 Intake Total 1195 ml 822 ml 120 ml Output Total 250 ml 150 ml Balance 1195 ml 572 ml -30 ml Intake Oral 120 ml 120 ml IV Total 1195 ml 702 ml Output Urine Total 250 ml 150 ml # Bowel Movements 0 0 Result Diagram: 04/19/17 0730 04/19/17 0730 Other Results Laboratory Tests Test 04/18/17 07:42 04/18/17 09:10 04/18/17 13:48 04/18/17 16:33 White Blood Count 11.3 TH/MM3 Red Blood Count 3.80 MIL/MM3 Hemoglobin 12.8 GM/DL Hematocrit 38.0 % Mean Corpuscular Volume 100.0 FL Mean Corpuscular Hemoglobin 33.7 PG Mean Corpuscular Hemoglobin Concent 33.8 % Red Cell Distribution Width 13.1 % Platelet Count 344 TH/MM3 Mean Platelet Volume 8.3 FL Neutrophils (%) (Auto) 85.5 % Lymphocytes (%) (Auto) 9.9 % Monocytes (%) (Auto) 3.6 % Eosinophils (%) (Auto) 0.5 % Basophils (%) (Auto) 0.5 % Neutrophils # (Auto) 9.7 TH/MM3 Lymphocytes # (Auto) 1.1 TH/MM3 Monocytes # (Auto) 0.4 TH/MM3 Eosinophils # (Auto) 0.1 TH/MM3 Basophils # (Auto) 0.1 TH/MM3 CBC Comment DIFF FINAL Differential Comment Prothrombin Time 10.3 SEC Prothromb Time International Ratio 0.9 RATIO Activated Partial Thromboplast Time 24.4 SEC Blood Urea Nitrogen 30 MG/DL Creatinine 1.08 MG/DL Random Glucose 172 MG/DL Total Protein 7.3 GM/DL Albumin 3.0 GM/DL Calcium Level 9.1 MG/DL Alkaline Phosphatase 73 U/L Aspartate Amino Transf (AST/SGOT) 30 U/L Alanine Aminotransferase (ALT/SGPT) 19 U/L Total Bilirubin 0.4 MG/DL Sodium Level 139 MEQ/L Potassium Level 4.4 MEQ/L Chloride Level 105 MEQ/L Carbon Dioxide Level 25.0 MEQ/L Anion Gap 9 MEQ/L Estimat Glomerular Filtration Rate 48 ML/MIN Lactic Acid Level 2.5 mmol/L Troponin I LESS THAN 0.02 NG/ML LESS THAN 0.02 NG/ML LESS THAN 0.02 NG/ML Urine Color YELLOW Urine Turbidity HAZY Urine pH 8.0 Urine Specific Hayden 1.013 Urine Protein 30 mg/dL Urine Glucose (UA) 70 mg/dL Urine Ketones NEG mg/dL Urine Occult Blood TRACE Urine Nitrite NEG Urine Bilirubin NEG Urine Urobilinogen LESS THAN 2.0 MG/DL Urine Leukocyte Esterase MOD Urine RBC 0-3 /hpf Urine WBC 25-49 /hpf Urine Squamous Epithelial Cells > 8 /hpf Urine Amorphous Sediment SMALL Urine Bacteria MOD /hpf Urine Hyaline Casts 6-9 /lpf Microscopic Urinalysis Comment CULTURE INDICATED Total Creatine Kinase 26 U/L 25 U/L Valproic Acid (Depakene) Level 16 MCG/ML Test 04/19/17 07:30 White Blood Count 9.2 TH/MM3 Red Blood Count 2.94 MIL/MM3 Hemoglobin 9.9 GM/DL Hematocrit 29.6 % Mean Corpuscular Volume 100.7 FL Mean Corpuscular Hemoglobin 33.7 PG Mean Corpuscular Hemoglobin Concent 33.5 % Red Cell Distribution Width 13.1 % Platelet Count 241 TH/MM3 Mean Platelet Volume 8.4 FL Neutrophils (%) (Auto) 86.0 % Lymphocytes (%) (Auto) 9.5 % Monocytes (%) (Auto) 4.0 % Eosinophils (%) (Auto) 0.3 % Basophils (%) (Auto) 0.2 % Neutrophils # (Auto) 7.9 TH/MM3 Lymphocytes # (Auto) 0.9 TH/MM3 Monocytes # (Auto) 0.4 TH/MM3 Eosinophils # (Auto) 0.0 TH/MM3 Basophils # (Auto) 0.0 TH/MM3 CBC Comment DIFF FINAL Differential Comment Blood Urea Nitrogen 27 MG/DL Creatinine 0.90 MG/DL Random Glucose 100 MG/DL Total Protein 5.8 GM/DL Albumin 2.3 GM/DL Calcium Level 7.6 MG/DL Phosphorus Level 2.5 MG/DL Magnesium Level 1.7 MG/DL Alkaline Phosphatase 59 U/L Aspartate Amino Transf (AST/SGOT) 19 U/L Alanine Aminotransferase (ALT/SGPT) 22 U/L Total Bilirubin 0.6 MG/DL Sodium Level 142 MEQ/L Potassium Level 3.6 MEQ/L Chloride Level 110 MEQ/L Carbon Dioxide Level 24.7 MEQ/L Anion Gap 7 MEQ/L Estimat Glomerular Filtration Rate 60 ML/MIN Lactic Acid Level 0.9 mmol/L Free Thyroxine 1.32 NG/DL Thyroid Stimulating Hormone 3rd Gen 1.330 uIU/ML Imaging Last Impressions Head CT 04/18/17 0000 Signed Impressions: Service Date/Time: Tuesday, April 18, 2017 08:06 - CONCLUSION: 1. 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 2. No acute intracranial abnormality. Abram Johnson MD Chest X-Ray 04/18/17 0000 Signed Impressions: Service Date/Time: Tuesday, April 18, 2017 09:29 - CONCLUSION: 1. No acute cardiopulmonary findings. Galo Elizalde MD Abdomen/Pelvis CT 04/18/17 0000 Signed Impressions: Service Date/Time: Tuesday, April 18, 2017 08:09 - CONCLUSION: 1. Diverticulosis without diverticulitis. 2. Status post cholecystectomy. 3. Small hiatal hernia. Abram Johnson MD Objective Remarks GENERAL: This is a well-nourished, well-developed patient, in no apparent distress. SKIN: No rashes, ecchymoses or lesions. Cool and dry. HEAD: Atraumatic. Normocephalic. No temporal or scalp tenderness. EYES: Pupils equal round and reactive. Extraocular motions intact. No scleral icterus. No injection or drainage. ENT: Nose without bleeding, purulent drainage or septal hematoma. Throat without erythema, tonsillar hypertrophy or exudate. Uvula midline. Airway patent. Tongue is midline NECK: Trachea midline. No JVD or lymphadenopathy. Supple, nontender, no meningeal signs. CARDIOVASCULAR: Regular rate and rhythm without murmurs, gallops, or rubs. RESPIRATORY: Clear to auscultation. Breath sounds equal bilaterally. No wheezes , rales, or rhonchi. GASTROINTESTINAL: Abdomen soft, non-tender, nondistended. No hepato-splenomegaly , or palpable masses. No guarding. MUSCULOSKELETAL: Extremities without clubbing, cyanosis, or edema. No joint tenderness, effusion, or edema noted. No calf tenderness. Negative Homans sign bilaterally. NEUROLOGICAL: Awake and alert. Cranial nerves II through XII intact. Motor and sensory grossly within normal limits. 4 out of 5 muscle strength in all muscle groups. abNormal speech. Insight and judgment is limited Mood and behavior is not appropriate Procedures NONE Medications and IVs Current Medications Ondansetron HCl (Zofran Inj) 4 mg ONCE ONCE IVP Last administered on t 08:59; Start 04/18/17 at 07:45; Stop 04/18/17 at 07:46; Status DC Sodium Chloride (NS Flush) 2 ml UNSCH PRN IV FLUSH FLUSH AFTER USING IV ACCESS ; Start 04/18/17 at 07:45; Stop 04/18/17 at 11:35; Status DC Sodium Chloride 1,000 ml @ 999 mls/hr BOLUS ONCE IV Last administered on 08:00; Start 04/18/17 at 07:45; Stop 04/18/17 at 08:45; Status DC Pantoprazole Sodium 80 mg/ Sodium Chloride 100 ml @ 10 mls/hr CONTINUOUS IV Last administered on 04/18/17 10:29; Start 04/18/17 at 07:45; Stop 04/18/17 at 14:06; Status DC Pantoprazole Sodium 80 mg/ Sodium Chloride 35 ml @ 420 mls/hr BOLUS ONCE IV Last administered on 04/18/17 08:58; Start 04/18/17 at 07:45; Stop 04/18/17 at 14:06; Status DC Piperacillin Sod/ Tazobactam Sod 50 ml @ 100 mls/hr ONCE ONCE IV Last administered on 04/18/17 09:30; Start 04/18/17 at 09:30; Stop 04/18/17 at 09 :59; Status DC Insulin Aspart (NovoLOG SUPPLEMENTAL SCALE) 1 ACHS SLIDING SCALE SQ ; Start at 12:00 Dextrose (D50w (Vial) Inj) 50 ml UNSCH PRN IV PUSH HYPOGLYCEMIA-SEE COMMENTS; Start 04/18/17 at 11:15 Glucagon (Glucagon Inj) 1 mg UNSCH PRN OTHER HYPOGLYCEMIA-SEE COMMENTS; Start 04/18/17 at 11:15 Sodium Chloride 1,000 ml @ 100 mls/hr Q10H IV Last administered on 04/19/17 08:00; Start 04/18/17 at 11:08 Sodium Chloride (NS Flush) 2 ml UNSCH PRN IV FLUSH FLUSH AFTER USING IV ACCESS ; Start 04/18/17 at 11:15 Sodium Chloride (NS Flush) 2 ml BID IV FLUSH Last administered on 04/18/17 22 :12; Start 04/18/17 at 21:00 Acetaminophen (Tylenol) 650 mg Q4H PRN PO TEMP > 100.4 Last administered on 22:16; Start 04/18/17 at 11:15 Ondansetron HCl (Zofran Inj) 4 mg Q6H PRN IVP NAUSEA OR VOMITING; Start at 11:15 Prochlorperazine (Compazine Supp) 25 mg Q12H PRN RECTAL NAUSEA OR VOMITING; Start 04/18/17 at 11:15 Enoxaparin Sodium (Lovenox Inj) 30 mg Q24H SQ Last administered on 04/18/17 15:01; Start 04/18/17 at 12:00 Acetaminophen (Tylenol) 650 mg Q6H PRN PO PAIN SCALE 1 TO 2; Start 04/18/17 at 11:15 Acetaminophen/ Hydrocodone Bitart ([place] 5-325 Mg) 1 tab Q4H PRN PO PAIN SCALE 3 TO 5; Start 04/18/17 at 11:15 Acetaminophen/ Hydrocodone Bitart ([place] 10-325 Mg) 1 tab Q4H PRN PO PAIN SCALE 6 TO 10; Start 04/18/17 at 11:15 Morphine Sulfate (Morphine Inj) 2 mg Q3H PRN IV PUSH Pain 3-5; if unable to take PO; Start 04/18/17 at 11:15 Morphine Sulfate (Morphine Inj) 4 mg Q3H PRN IV PUSH Pain 6-10;if unable to take PO; Start 04/18/17 at 11:15 Naloxone HCl (Narcan Inj) 0.4 mg UNSCH PRN IV PUSH SEE LABEL COMMENTS; Start 04/18/17 at 11:15 Senna/Docusate Sodium (Genevieve-Colace) 1 tab BID PO Last administered on 08:00; Start 04/18/17 at 21:00 Magnesium Hydroxide (Milk Of Magnesia Liq) 30 ml Q12H PRN PO Mild constipation ; Start 04/18/17 at 11:15 Sennosides (Senokot) 17.2 mg Q12H PRN PO Moderate constipation; Start at 11:15 Bisacodyl (Dulcolax Supp) 10 mg DAILY PRN RECTAL SEVERE CONSITIPATION; Start 04/18/17 at 11:15 Lactulose (Lactulose Liq) 30 ml DAILY PRN PO SEVERE CONSITIPATION; Start 04/18 at 11:15 Aspirin (Aspirin Chew) 81 mg DAILY CHEW Last administered on 04/19/17 08:01; Start 04/18/17 at 12:00 Citalopram Hydrobromide (CeleXA) 10 mg DAILY PO Last administered on 08:00; Start 04/18/17 at 12:00 Divalproex Sodium (Depakote Sprinkles) 125 mg BID PO Last administered on 04/19 08:00; Start 04/18/17 at 12:00 Metoprolol Succinate (Toprol Xl) 12.5 mg DAILY PO Last administered on 08:01; Start 04/18/17 at 12:00 Quetiapine Fumarate (SEROquel) 25 mg DAILY PO Last administered on 04/19/17 08:00; Start 04/18/17 at 12:00 Ceftriaxone Sodium 1000 mg/ Sodium Chloride 100 ml @ 200 mls/hr Q24H IV Last administered on 04/18/17 12:43; Start 04/18/17 at 12:00; Stop 04/19/17 at 08 :58; Status DC Miscellaneous (Pill Splitter) 1 ea UNSCH PRN OTHER SEE LABEL COMMENTS; Start 04/18/17 at 11:45 Famotidine (Pepcid) 20 mg BID PO Last administered on 04/19/17 08:01; Start 04/18/17 at 21:00 Piperacillin Sod/ Tazobactam Sod 100 ml @ 200 mls/hr Q6H IV ; Start 04/19/17 at 10:00 Pharmacy Profile Note 0 ml @ 0 mls/hr UNSCH OTHER ; Start 04/19/17 at 09:00 Vancomycin HCl 1000 mg/Sodium Chloride 250 ml @ 125 mls/hr Q24H IV ; Start at 11:00 Urinary Catheter: Yes Assessment to: Continue Juarez insert reason: Obstruction/Retention A/P Problem List: (1) GERD (gastroesophageal reflux disease) ICD Code: K21.9 - Gastro-esophageal reflux disease without esophagitis (2) Hypertension ICD Code: I10 - Essential (primary) hypertension (3) Depression ICD Code: F32.9 - Major depressive disorder, single episode, unspecified (4) Anxiety ICD Code: F41.9 - Anxiety disorder, unspecified (5) Alzheimer's dementia ICD Code: G30.9 - Alzheimer's disease, unspecified (6) Vomiting ICD Code: R11.10 - Vomiting, unspecified Status: Acute (7) Altered mental status ICD Code: R41.82 - Altered mental status, unspecified Status: Acute (8) UTI (urinary tract infection) ICD Code: N39.0 - Urinary tract infection, site not specified Status: Acute (9) Sepsis ICD Code: A41.9 - Sepsis, unspecified organism Status: Acute Assessment and Plan Urinary tract infection/sepsis continue on BLOOD CULTURES POSITIVE WILL ADD ZOSYN AND VANCO UNTIL SENSITIVITIES ARE BACK Her urinalysis was positive for UTI Her lactic acid was stable creatinine within normal limits CT of the head showed no acute abnormalities CT of the abdomen and pelvis is stable patient was given aggressive IV fluid rehydration and started on VANCO ZOSYN Has history of hypertension restart home medications Has history of GERD placed on Pepcid Dementia monitor Debility will get physical therapy and occupational therapy to eval and treat Is a DO NOT RESUSCITATE well treat as aggressively as we can without violating this Will go back to the longterm facility when she has had improvement We'll get a.m. labs Continue physical therapy and occupational therapy Has Juarez catheter in place Discharge Planning PENDING CULTURES Problem Qualifiers (1) UTI (urinary tract infection): Qualified Codes: N30.00 - Acute cystitis without hematuria (2) Sepsis: Qualified Codes: A41.9 - Sepsis, unspecified organism Faraz Pleitez DO Apr 19, 2017 09:59
[2017-04-19] MEDS: PIPERACIL-TAZO 4.5 GM PREMIX 100 ML IV SCH ×3 (12:04→23:08)
[2017-04-19] MEDS: VANCOMYCIN INJ 1,000 MG in SODIUM CHLOR 0.9% 250 ML INJ 250 ML IV SCH (12:51)
[2017-04-19] MEDS: ENOXAPARIN SODIUM 30 MG/0.3 ML SYRINGE SQ SCH (12:53)
[2017-04-20 04:10] VITALS: BP 153/65; PULSE 69; RESP 18; TEMP 97.9; O2SAT 94
[2017-04-20] MEDS: PIPERACIL-TAZO 4.5 GM PREMIX 100 ML IV SCH ×2 (05:07→08:38)
[2017-04-20] MEDS: SODIUM CHLOR 0.9% 1000 ML INJ 1,000 ML IV SCH ×3 (05:07→23:08)
[2017-04-20 08:00] VITALS: BP 137/61; PULSE 66; RESP 17; TEMP 97.8; O2SAT 95
[2017-04-20] MEDS: CITALOPRAM HYDROBROMIDE 20 MG TAB PO SCH (08:38)
[2017-04-20] MEDS: DOCUSATE SODIUM 50 MG/SENNA 8.6 MG TAB PO SCH ×2 (08:39→21:45)
[2017-04-20] MEDS: DIVALPROEX SODIUM SPRINKLES 125 MG CAP PO SCH ×2 (08:39→21:44)
[2017-04-20] MEDS: METOPROLOL SUCCINATE 25 MG EXTENDED RELEASE TAB PO SCH (08:39)
[2017-04-20] MEDS: FAMOTIDINE 20 MG TAB PO SCH ×2 (08:39→21:45)
[2017-04-20] MEDS: SODIUM CHLORIDE 0.9% FLUSH 10 ML FLUSH IV FLUSH SCH ×2 (08:39→21:00)
[2017-04-20] MEDS: ASPIRIN 81 MG CHEW TAB CHEW SCH (08:39)
[2017-04-20] MEDS: QUEtiapine FUMARATE 25 MG TAB PO SCH ×2 (08:39→21:45)
[2017-04-20 09:53] LABS: HEMOGLOBIN A1a 1.8 %; HEMOGLOBIN A1b 0.8 %; HEMOGLOBIN Ao 84.7 %; HEMOGLOBIN F 1.4 %
[2017-04-20 10:37] VITALS: O2SAT 97
[2017-04-20] MEDS: ENOXAPARIN SODIUM 30 MG/0.3 ML SYRINGE SQ SCH (11:17)
[2017-04-20] MEDS: VANCOMYCIN INJ 1,000 MG in SODIUM CHLOR 0.9% 250 ML INJ 250 ML IV SCH (11:24)
[2017-04-20 12:00] VITALS: BP 138/80; PULSE 70; RESP 18; TEMP 97.8; O2SAT 97
[2017-04-20] MEDS ORDERED: MISCELLANEOUS PHARMACY INFORMATION XX PRN (13:15)
[2017-04-20 13:59] LABS: BASOPHIL % 0.3 % (0.0-2.0); EOSINOPHIL # 0.1 TH/MM3 (0-0.4); EOSINOPHIL % 1.3 % (0.0-4.0); HEMATOCRIT 29.8 % (35.0-46.0); HEMO FLAGS DIFF FINAL; LYMPH % 15.5 % (9.0-44.0); MEAN CELL VOLUME 99.8 FL (80.0-100.0); MEAN CORPUSCULAR HEMOGLOBIN 33.6 PG (27.0-34.0); MEAN CORPUSCULAR HGB CONC 33.6 % (32.0-36.0); MONO % 7.3 % (0.0-8.0); NEUT % 75.6 % (16.0-70.0); PLATELET COUNT 250 TH/MM3 (150-450); RED BLOOD COUNT 2.99 MIL/MM3 (4.00-5.30); RED CELL DISTRIBUTION WIDTH 12.8 % (11.6-17.2); WHITE BLOOD COUNT 6.6 TH/MM3 (4.0-11.0)
--- NOTE | 2017-04-20 14:23 | HHI.PR ---
Subjective Remarks Follow-up for UTI Got a phone call from patient's nurse who stated that she is ESBL positive needs to be transfer off the orthopedic floor. Patient seen and she stated complaining of being tangled in too many lines which was true. Her clinical nursing professor came to the bedside and helped with all the equipment. Patient was able to tell me her name but could not tell me the location. She thought she was in [place]. When I told she was in the hospital she was surprised. She stated that she didn't know that the name was changed. When she saw the clinical nursing professor she stated that "you are right I am in the hospital." Per patient's nurse she pulled out her Juarez. Otherwise she denies any pain, shortness of breathing, nausea vomiting. Objective Vitals Vital Signs Date Time Temp Pulse Resp B/P (MAP) Pulse Ox O2 Delivery O2 Flow Rate FiO2 04/20/17 12:00 97.8 70 18 138/80 (99) 97 04/20/17 10:37 97 21 04/20/17 08:00 97.8 66 17 137/61 (86) 95 04/20/17 04:10 97.9 69 18 153/65 (94) 94 04/19/17 23:18 98.9 66 17 158/72 (100) 96 04/19/17 21:45 98.7 71 17 130/84 (99) 94 04/19/17 20:15 69 04/19/17 16:00 97.2 75 18 135/65 (88) 97 I/O 04/19/17 04/19/17 04/19/17 04/20/17 04/20/17 04/20/17 07:00 15:00 23:00 07:00 15:00 23:00 Intake Total 120 ml 100 ml 580 ml 870 ml 100 ml Output Total 150 ml 350 ml 175 ml Balance -30 ml -250 ml 405 ml 870 ml 100 ml Intake Oral 120 ml 240 ml 240 ml IV Total 100 ml 340 ml 630 ml 100 ml Output Urine Total 150 ml 350 ml 175 ml # Voids 3 # Bowel Movements 0 0 0 Result Diagram: 04/20/17 1304 04/19/17 0730 Objective Remarks GENERAL: in NAD CARDIOVASCULAR: Regular rate and rhythm without murmurs, gallops, or rubs. RESPIRATORY: Breath sounds equal bilaterally. No accessory muscle use. GASTROINTESTINAL: Abdomen soft, non-tender, nondistended. MUSCULOSKELETAL: No cyanosis, or edema. BACK: Nontender without obvious deformity. No CVA tenderness. NEURO: AAO X 3. She does answer your questions but is not oriented to time or place. Motor and sensation grossly intact. Procedures NONE Medications and IVs Current Medications Ondansetron HCl (Zofran Inj) 4 mg ONCE ONCE IVP Last administered on 08:59; Start 04/18/17 at 07:45; Stop 04/18/17 at 07:46; Status DC Sodium Chloride (NS Flush) 2 ml UNSCH PRN IV FLUSH FLUSH AFTER USING IV ACCESS ; Start 04/18/17 at 07:45; Stop 04/18/17 at 11:35; Status DC Sodium Chloride 1,000 ml @ 999 mls/hr BOLUS ONCE IV Last administered on 08:00; Start 04/18/17 at 07:45; Stop 04/18/17 at 08:45; Status DC Pantoprazole Sodium 80 mg/ Sodium Chloride 100 ml @ 10 mls/hr CONTINUOUS IV Last administered on 04/18/17 10:29; Start 04/18/17 at 07:45; Stop 04/18/17 at 14:06; Status DC Pantoprazole Sodium 80 mg/ Sodium Chloride 35 ml @ 420 mls/hr BOLUS ONCE IV Last administered on 04/18/17 08:58; Start 04/18/17 at 07:45; Stop 04/18/17 at 14:06; Status DC Piperacillin Sod/ Tazobactam Sod 50 ml @ 100 mls/hr ONCE ONCE IV Last administered on 04/18/17 09:30; Start 04/18/17 at 09:30; Stop 04/18/17 at 09 :59; Status DC Insulin Aspart (NovoLOG SUPPLEMENTAL SCALE) 1 ACHS SLIDING SCALE SQ ; Start at 12:00; Stop 04/19/17 at 10:00; Status DC Dextrose (D50w (Vial) Inj) 50 ml UNSCH PRN IV PUSH HYPOGLYCEMIA-SEE COMMENTS; Start 04/18/17 at 11:15 Glucagon (Glucagon Inj) 1 mg UNSCH PRN OTHER HYPOGLYCEMIA-SEE COMMENTS; Start 04/18/17 at 11:15 Sodium Chloride 1,000 ml @ 100 mls/hr Q10H IV Last administered on 04/20/17 05:07; Start 04/18/17 at 11:08 Sodium Chloride (NS Flush) 2 ml UNSCH PRN IV FLUSH FLUSH AFTER USING IV ACCESS ; Start 04/18/17 at 11:15 Sodium Chloride (NS Flush) 2 ml BID IV FLUSH Last administered on 04/18/17 22 :12; Start 04/18/17 at 21:00 Acetaminophen (Tylenol) 650 mg Q4H PRN PO TEMP > 100.4 Last administered on 22:16; Start 04/18/17 at 11:15 Ondansetron HCl (Zofran Inj) 4 mg Q6H PRN IVP NAUSEA OR VOMITING; Start at 11:15 Prochlorperazine (Compazine Supp) 25 mg Q12H PRN RECTAL NAUSEA OR VOMITING; Start 04/18/17 at 11:15 Enoxaparin Sodium (Lovenox Inj) 30 mg Q24H SQ Last administered on 04/20/17 11:17; Start 04/18/17 at 12:00 Acetaminophen (Tylenol) 650 mg Q6H PRN PO PAIN SCALE 1 TO 2; Start 04/18/17 at 11:15 Acetaminophen/ Hydrocodone Bitart ([place] 5-325 Mg) 1 tab Q4H PRN PO PAIN SCALE 3 TO 5; Start 04/18/17 at 11:15 Acetaminophen/ Hydrocodone Bitart ([place] 10-325 Mg) 1 tab Q4H PRN PO PAIN SCALE 6 TO 10; Start 04/18/17 at 11:15 Morphine Sulfate (Morphine Inj) 2 mg Q3H PRN IV PUSH Pain 3-5; if unable to take PO; Start 04/18/17 at 11:15 Morphine Sulfate (Morphine Inj) 4 mg Q3H PRN IV PUSH Pain 6-10;if unable to take PO; Start 04/18/17 at 11:15 Naloxone HCl (Narcan Inj) 0.4 mg UNSCH PRN IV PUSH SEE LABEL COMMENTS; Start 04/18/17 at 11:15 Senna/Docusate Sodium (Genevieve-Colace) 1 tab BID PO Last administered on 08:39; Start 04/18/17 at 21:00 Magnesium Hydroxide (Milk Of Magnesia Liq) 30 ml Q12H PRN PO Mild constipation ; Start 04/18/17 at 11:15 Sennosides (Senokot) 17.2 mg Q12H PRN PO Moderate constipation; Start at 11:15 Bisacodyl (Dulcolax Supp) 10 mg DAILY PRN RECTAL SEVERE CONSITIPATION; Start 04/18/17 at 11:15 Lactulose (Lactulose Liq) 30 ml DAILY PRN PO SEVERE CONSITIPATION; Start 04/18 at 11:15 Aspirin (Aspirin Chew) 81 mg DAILY CHEW Last administered on 04/20/17 08:39; Start 04/18/17 at 12:00 Citalopram Hydrobromide (CeleXA) 10 mg DAILY PO Last administered on 08:38; Start 04/18/17 at 12:00 Divalproex Sodium (Depakote Sprinkles) 125 mg BID PO Last administered on 04/20 08:39; Start 04/18/17 at 12:00 Metoprolol Succinate (Toprol Xl) 12.5 mg DAILY PO Last administered on 08:39; Start 04/18/17 at 12:00 Quetiapine Fumarate (SEROquel) 25 mg DAILY PO Last administered on 04/20/17 08:39; Start 04/18/17 at 12:00 Ceftriaxone Sodium 1000 mg/ Sodium Chloride 100 ml @ 200 mls/hr Q24H IV Last administered on 04/18/17 12:43; Start 04/18/17 at 12:00; Stop 04/19/17 at 08 :58; Status DC Miscellaneous (Pill Splitter) 1 ea UNSCH PRN OTHER SEE LABEL COMMENTS; Start 04/18/17 at 11:45 Famotidine (Pepcid) 20 mg BID PO Last administered on 04/19/17 08:01; Start 04/18/17 at 21:00; Stop 04/19/17 at 15:12; Status DC Piperacillin Sod/ Tazobactam Sod 100 ml @ 200 mls/hr Q6H IV Last administered on 04/20/17 08:38; Start 04/19/17 at 10:00; Stop 04/20/17 at 13:31; Status DC Pharmacy Profile Note 0 ml @ 0 mls/hr UNSCH OTHER ; Start 04/19/17 at 09:00 Vancomycin HCl 1000 mg/Sodium Chloride 250 ml @ 125 mls/hr Q24H IV Last administered on 04/20/17t 11:24; Start 04/19/17 at 11:00 Miscellaneous Information SPECIFIC LAB TO BE ... ONCE ONCE .XX ; Start at 10:45; Stop 04/22/17 at 10:46 Famotidine (Pepcid) 10 mg BID PO Last administered on 04/20/17t 08:39; Start 04/19/17 at 21:00 Miscellaneous Medication ([facility]) 1 UNSCH X1 PRN XX PHARMACY DOCUMENTATION; Start 04/20/17 at 13:15; Stop 04/21/17 at 13:14 Ertapenem 1000 mg/ Sodium Chloride 100 ml @ 200 mls/hr Q24H IV ; Start at 15:00 A/P Problem List: (1) GERD (gastroesophageal reflux disease) ICD Code: K21.9 - Gastro-esophageal reflux disease without esophagitis (2) Hypertension ICD Code: I10 - Essential (primary) hypertension (3) Depression ICD Code: F32.9 - Major depressive disorder, single episode, unspecified (4) Anxiety ICD Code: F41.9 - Anxiety disorder, unspecified (5) Alzheimer's dementia ICD Code: G30.9 - Alzheimer's disease, unspecified (6) Vomiting ICD Code: R11.10 - Vomiting, unspecified Status: Acute (7) Altered mental status ICD Code: R41.82 - Altered mental status, unspecified Status: Acute (8) UTI (urinary tract infection) ICD Code: N39.0 - Urinary tract infection, site not specified Status: Acute (9) Sepsis ICD Code: A41.9 - Sepsis, unspecified organism Status: Acute Assessment and Plan This is a 82-year-old female residing in SNF who presented with nausea vomiting Bacteremia gram-positive cocci -Patient was initially on Zosyn and vancomycin. Then urine was positive for ESBL and strep viridans. -Zosyn was discontinued and patient was started on ertapenem. Continue vancomycin. -Will need to repeat blood cultures. UTI -ESBL positive. See treatment as above. Consult infectious disease. Dementia -Patient at her baseline. Hypertension/GERD -Continue her home regimen. DVT prophylaxis -lovenox Discharge Planning Since patient is ESBL positive [facility] Problem Qualifiers (1) UTI (urinary tract infection): Qualified Codes: N30.00 - Acute cystitis without hematuria (2) Sepsis: Qualified Codes: A41.9 - Sepsis, unspecified organism Roxanne Morales MD Apr 20, 2017 14:23
[2017-04-20 14:31] LABS: ALKALINE PHOSPHATASE 56 U/L (45-117); ALT (GPT) 20 U/L (10-53); ANION GAP 11 MEQ/L (5-15); AST (GOT) 19 U/L (15-37); BICARBONATE 25.2 MEQ/L (21.0-32.0); BLOOD UREA NITROGEN 16 MG/DL (7-18); CHLORIDE 106 MEQ/L (98-107); GLOMERULAR FILTRATION RATE 54 ML/MIN (>89); MAGNESIUM 1.7 MG/DL (1.5-2.5); SODIUM (NA) 142 MEQ/L (136-145); TOTAL BILIRUBIN ADULT 0.7 MG/DL (0.2-1.0)
--- NOTE | 2017-04-20 14:39 | PD.CONS ---
History of Present Illness Service Infectious disease Consult Requested By Dr Shannen Morales Reason for Consult Evaluate patient with ESBL-positive UTI Primary Care Physician No Primary Care Physician Diagnoses: History of Present Illness Patient seen and examined. Records reviewed. Patient is an 82-year-old female brought in from the [facility] facility after an episode of vomiting and diarrhea. She also had a transient hypotension and that has improved. On evaluation she was found to have a UTI. Juarez catheter was placed and she had cloudy urine. CT of the abdomen and pelvis did not show any significant abnormalities. She had some mild leukocytosis of 11,000. Her creatinine was a little bit elevated. Some fluids and some antibiotics. She had some fevers yesterday. Her urine culture has ESBL positive organism and strep viridans. 2 blood cultures are growing coag- negative staph, final ID still pending. Patient has been agitated on and off. She has pulled her IV's 2 yesterday. Patient also has pulled her Juarez catheter. Infectious disease consultation has been requested to evaluate the patient with UTI, ESBL positive. Review of Systems Constitutional: COMPLAINS OF: Fever, Chills Eyes: DENIES: Eye pain Ears, nose, mouth, throat: DENIES: Nasal discharge, Oral lesions, Throat pain Respiratory: DENIES: Cough, Shortness of breath Cardiovascular: DENIES: Chest pain, Palpitations, Dyspnea on Exertion Gastrointestinal: COMPLAINS OF: Abdominal pain, DENIES: Constipation, Diarrhea , Nausea, Vomiting Musculoskeletal: DENIES: Joint pain, Joint Swelling Integumentary: DENIES: Rash Neurologic: DENIES: Localized weakness Psychiatric: DENIES: Hallucinations Past Family Social History Allergies: Coded Allergies: atorvastatin (Unverified Allergy, Unknown, 01/14/17) clotrimazole (Unverified Allergy, Unknown, 01/14/17) diltiazem (Unverified Allergy, Unknown, 01/14/17) iodine (Unverified Allergy, Unknown, 01/14/17) meperidine (Unverified Allergy, Unknown, 01/14/17) nifedipine (Unverified Allergy, Unknown, 01/14/17) potassium iodide (Unverified Allergy, Unknown, 01/14/17) povidone-iodine (Unverified Allergy, Unknown, 01/14/17) propranolol (Unverified Allergy, Unknown, 01/14/17) sertraline (Unverified Allergy, Unknown, 01/14/17) sodium iodide (Unverified Allergy, Unknown, 01/14/17) sodium iodide (Unverified Allergy, Unknown, 01/14/17) Past Medical History Anemia by history Osteoarthritis Anxiety Depression Dementia Hypertension GERD Dementia History of cardiac rhythm issues Past Surgical History Brain surgery in 2007 Cholecystectomy Reported Medications I attest that I obtained, updated or reviewed the home and current medications. Reported Meds & Active Scripts Active Ciprofloxacin (Ciprofloxacin HCl) 250 Mg Tab 250 Mg PO BID Reported Quetiapine (Quetiapine Fumarate) 25 Mg Tab 25 Mg PO DAILY Acetaminophen 325 Mg Tab 325 Mg PO Q4-6H PRN Divalproex DR (Divalproex Sodium) 125 Mg Capdr 125 Mg PO BID Metoprolol Succinate ER 24 HR (Metoprolol Succinate) 25 Mg Tab 12.5 Mg PO DAILY Vitamin B Complex (B-Complex Vitamins) 1 Tab DAILY Milk of Magnesia Liq (Magnesium Hydroxide) 400 Mg/5 Ml Susp 30 Ml PO DAILY PRN Fosamax (Alendronate Sodium) 70 Mg Tab 35 Mg PO Q7D Citalopram (Citalopram Hydrobromide) 10 Mg Tab 10 Mg PO DAILY Aspirin 81 Mg Chew 81 Mg CHEW DAILY Active Ordered Medications Current Medications Medications (Trade) Dose Ordered Sig/Pari Route Start Time Stop Time Status Last Admin (D50w (Vial) Inj) 50 ml UNSCH PRN IV PUSH 04/18/17 11:15 (Glucagon Inj) 1 mg UNSCH PRN OTHER 04/18/17 11:15 Sodium Chloride 1,000 ml @ 100 mls/hr Q10H IV 04/18/17 11:08 04/20/17 05:07 (NS Flush) 2 ml UNSCH PRN IV FLUSH 04/18/17 11:15 (NS Flush) 2 ml BID IV FLUSH 04/18/17 21:00 04/18/17 22:12 (Tylenol) 650 mg Q4H PRN PO 04/18/17 11:15 04/18/17 22:16 (Zofran Inj) 4 mg Q6H PRN IVP 04/18/17 11:15 (Compazine Supp) 25 mg Q12H PRN RECTAL 04/18/17 11:15 (Lovenox Inj) 30 mg Q24H SQ 04/18/17 12:00 04/20/17 11:17 (Tylenol) 650 mg Q6H PRN PO 04/18/17 11:15 (Leslie 5-325 Mg) 1 tab Q4H PRN PO 04/18/17 11:15 (Leslie 10-325 Mg) 1 tab Q4H PRN PO 04/18/17 11:15 (Morphine Inj) 2 mg Q3H PRN IV PUSH 04/18/17 11:15 (Morphine Inj) 4 mg Q3H PRN IV PUSH 04/18/17 11:15 (Narcan Inj) 0.4 mg UNSCH PRN IV PUSH 04/18/17 11:15 (Genevieve-Colace) 1 tab BID PO 04/18/17 21:00 04/20/17 08:39 (Milk Of Magnesia Liq) 30 ml Q12H PRN PO 04/18/17 11:15 (Senokot) 17.2 mg Q12H PRN PO 04/18/17 11:15 (Dulcolax Supp) 10 mg DAILY PRN RECTAL 04/18/17 11:15 (Lactulose Liq) 30 ml DAILY PRN PO 04/18/17 11:15 (Aspirin Chew) 81 mg DAILY CHEW 04/18/17 12:00 04/20/17 08:39 (CeleXA) 10 mg DAILY PO 04/18/17 12:00 04/20/17 08:38 (Depakote Sprinkles) 125 mg BID PO 04/18/17 12:00 04/20/17 08:39 (Toprol Xl) 12.5 mg DAILY PO 04/18/17 12:00 04/20/17 08:39 (SEROquel) 25 mg DAILY PO 04/18/17 12:00 04/20/17 08:39 (Pill Splitter) 1 ea UNSCH PRN OTHER 04/18/17 11:45 Pharmacy Profile Note 0 ml @ 0 mls/hr UNSCH OTHER 04/19/17 09:00 Vancomycin HCl 1000 mg/Sodium Chloride 250 ml @ 125 mls/hr Q24H IV 04/19/17 11:00 04/20/17 11:24 Miscellaneous Information SPECIFIC LAB TO BE RONAK... ONCE ONCE .XX 04/22/17 10:45 04/22/17 10:46 (Pepcid) 10 mg BID PO 04/19/17 21:00 04/20/17 08:39 ([facility] Information) 1 UNSCH X1 PRN XX 04/20/17 13:15 04/21/17 13:14 Ertapenem 1000 mg/ Sodium Chloride 100 ml @ 200 mls/hr Q24H IV 04/20/17 15:00 Family History Not known Social History Resides in a correction No smoking No alcohol abuse No illicit drugs Physical Exam Vital Signs Vital Signs Date Time Temp Pulse Resp B/P (MAP) Pulse Ox O2 Delivery O2 Flow Rate FiO2 04/20/17 12:00 97.8 70 18 138/80 (99) 97 04/20/17 10:37 97 21 04/20/17 08:00 97.8 66 17 137/61 (86) 95 04/20/17 04:10 97.9 69 18 153/65 (94) 94 04/19/17 23:18 98.9 66 17 158/72 (100) 96 04/19/17 21:45 98.7 71 17 130/84 (99) 94 04/19/17 20:15 69 04/19/17 16:00 97.2 75 18 135/65 (88) 97 Physical Exam GENERAL: Patient is a well-nourished, well-developed CF, awake and alert, not in respiratory distress. Gave me wrong age, wrong year and wrong name of President SKIN: Warm and dry. No generalized rash, no ecchymoses and no evidence of embolic lesions. HEAD: Atraumatic. Normocephalic. No temporal wasting, or tenderness. EYES: [place] conjunctiva. No petechia or hemorrhage. Pupils equal, round and reactive to light. Extraocular movements full and intact. No scleral icterus. No injection or drainage. EARS, NOSE AND THROAT: Nose without bleeding or purulent nasal discharge. No sinus tenderness. Mucous membranes pink and moist. No oral lesions noted. No exudate. No oral thrush. NECK: Trachea midline. Supple and not tender, no meningeal signs CARDIOVASCULAR: Regular rate and rhythm. No murmurs, rubs or gallops heard RESPIRATORY: Clear to auscultation. Breath sounds equal bilaterally. No rales , wheezing or rhonchi ABDOMEN: Soft, non-tender, nondistended. Mild suprapubic tenderness. Bowel sounds present and normoactive. No guarding. No rebound. No organomegaly. EXTREMITIES: No clubbing, cyanosis, or edema. No joint effusion, has good ROM. No calf tenderness. Well perfused and warm. NEUROLOGICAL: Awake and alert. Cranial nerves grossly intact. Motor grossly within normal limits. PSYCHIATRIC: Normal affect, calm and cooperative. LINE: No evidence of infection Laboratory Laboratory Tests Test 04/20/17 13:04 White Blood Count 6.6 Red Blood Count 2.99 Hemoglobin 10.0 Hematocrit 29.8 Mean Corpuscular Volume 99.8 Mean Corpuscular Hemoglobin 33.6 Mean Corpuscular Hemoglobin Concent 33.6 Red Cell Distribution Width 12.8 Platelet Count 250 Mean Platelet Volume 8.6 Neutrophils (%) (Auto) 75.6 Lymphocytes (%) (Auto) 15.5 Monocytes (%) (Auto) 7.3 Eosinophils (%) (Auto) 1.3 Basophils (%) (Auto) 0.3 Neutrophils # (Auto) 5.0 Lymphocytes # (Auto) 1.0 Monocytes # (Auto) 0.5 Eosinophils # (Auto) 0.1 Basophils # (Auto) 0.0 CBC Comment DIFF FINAL Differential Comment Blood Urea Nitrogen 16 Creatinine 0.98 Random Glucose 91 Total Protein 6.0 Albumin 2.4 Calcium Level 7.7 Phosphorus Level 1.8 Magnesium Level 1.7 Alkaline Phosphatase 56 Aspartate Amino Transf (AST/SGOT) 19 Alanine Aminotransferase (ALT/SGPT) 20 Total Bilirubin 0.7 Sodium Level 142 Potassium Level 3.0 Chloride Level 106 Carbon Dioxide Level 25.2 Anion Gap 11 Estimat Glomerular Filtration Rate 54 Date/Time Source Procedure Growth Status 04/18/17 09:40 Blood Peripheral Aerobic Blood Culture - Final Staph Sp Coagulase Negative Resulted 04/18/17 09:40 Anaerobic Blood Culture - Preliminary Gram Positive Cocci Resulted 04/18/17 09:10 Urine Clean Catch Urine Culture - Final Escherichia Coli Esbl Positive Viridans Streptococcus Grp Complete Result Diagram: 04/20/17 1304 04/20/17 1304 Imaging RADIOLOGY STUDIES/FILMS REVIEWED Head CT 04/18/17 0000 Signed Impressions: Service Date/Time: Tuesday, April 18, 2017 08:06 - CONCLUSION: 1. 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 2. No acute intracranial abnormality. Abram Johnson MD Chest X-Ray 04/18/17 0000 Signed Impressions: Service Date/Time: Tuesday, April 18, 2017 09:29 - CONCLUSION: 1. No acute cardiopulmonary findings. Galo Elizalde MD Abdomen/Pelvis CT 04/18/17 0000 Signed Impressions: Service Date/Time: Tuesday, April 18, 2017 08:09 - CONCLUSION: 1. Diverticulosis without diverticulitis. 2. Status post cholecystectomy. 3. Small hiatal hernia. Abram Johnson MD Assessment and Plan Assessment and Plan IMPRESSION UTI, Ecoli ESBL+ and viridans Strep Possible sepsis, fevers (+) BC with Coag Neg Staph, ?significance Known dementia RECOMMENDATION Repeat 2 blood cultures today Agree with IV Invanz, planned 14 days Continue IV Vanco for now I will follow on the blood culture and make further recommendation on the treatment of the positive BC Monitor progress Check bladder scan to determine if she is retaining. She has pulled her Juarez catheter, and she has some suprapubic tenderness on exam I will follow along with you Thank you for this consultation Discussed Condition With Discussed with Francheska El MD Apr 20, 2017 14:39
[2017-04-20] MEDS: ACETAMINOPHEN 325 MG TAB PO PRN (15:04)
[2017-04-20] MEDS: ERTAPENEM INJ 1,000 MG in SODIUM CHLORIDE 0.9% INJ 100 ML IV SCH (15:15)
[2017-04-20] MEDS ORDERED: HALOPERIDOL LACTATE 5 MG/ML AMP IM PRN (17:30)
[2017-04-20] MEDS ORDERED: LORazepam 2 MG/ML VIAL IV PUSH PRN (17:30)
[2017-04-20 19:00] VITALS: PULSE 89
[2017-04-20 20:00] VITALS: BP 218/91; PULSE 78; RESP 20; TEMP 97.6; O2SAT 97
[2017-04-21] VITALS (11 sets, daily range): BP systolic 139–200; BP diastolic 63–94; PULSE 63–91; RESP 17–20; TEMP 97.3–99.2; O2SAT 94–97
[2017-04-21] MEDS: METOPROLOL SUCCINATE 25 MG EXTENDED RELEASE TAB PO SCH (08:07)
[2017-04-21] MEDS: QUEtiapine FUMARATE 25 MG TAB PO SCH ×2 (08:07→21:00)
[2017-04-21 08:08] LABS: HEMATOCRIT 34.7 % (35.0-46.0); MEAN CELL VOLUME 98.2 FL (80.0-100.0); MEAN CORPUSCULAR HEMOGLOBIN 33.6 PG (27.0-34.0); MEAN CORPUSCULAR HGB CONC 34.2 % (32.0-36.0); PLATELET COUNT 269 TH/MM3 (150-450); RED BLOOD COUNT 3.53 MIL/MM3 (4.00-5.30); RED CELL DISTRIBUTION WIDTH 12.3 % (11.6-17.2); REVIEW FLAG FINAL; WHITE BLOOD COUNT 6.9 TH/MM3 (4.0-11.0)
[2017-04-21] MEDS: DIVALPROEX SODIUM SPRINKLES 125 MG CAP PO SCH ×2 (08:08→23:29)
[2017-04-21] MEDS: ASPIRIN 81 MG CHEW TAB CHEW SCH (08:08)
[2017-04-21] MEDS: DOCUSATE SODIUM 50 MG/SENNA 8.6 MG TAB PO SCH ×2 (08:08→21:00)
[2017-04-21] MEDS: FAMOTIDINE 20 MG TAB PO SCH ×2 (08:08→23:33)
[2017-04-21] MEDS: CITALOPRAM HYDROBROMIDE 20 MG TAB PO SCH (08:08)
[2017-04-21] MEDS: SODIUM CHLORIDE 0.9% FLUSH 10 ML FLUSH IV FLUSH SCH ×2 (08:08→21:00)
[2017-04-21 08:35] LABS: BICARBONATE 26.1 MEQ/L (21.0-32.0)
[2017-04-21 08:40] LABS: POTASSIUM 2.6 MEQ/L (3.5-5.1)
[2017-04-21] MEDS ORDERED: POTASSIUM CHLOR 20 MEQ PREMIX 100 ML IV ONE ×2 (09:00→11:00)
[2017-04-21] MEDS: SODIUM CHLOR 0.9% 1000 ML INJ 1,000 ML IV SCH (09:08)
[2017-04-21] MEDS ORDERED: LISINOPRIL 10 MG TAB PO ONE (09:45)
[2017-04-21] MEDS ORDERED: MAGNESIUM SULFATE 1 GM PREMIX 100 ML IV SCH (09:45)
[2017-04-21] MEDS ORDERED: NIFEdipine 60 MG SUSTAINED RELEASE TAB PO ONE (09:45)
[2017-04-21] MEDS ORDERED: hydrALAZINE HCL 25 MG TAB PO ONE (10:30)
[2017-04-21] MEDS: ENOXAPARIN SODIUM 30 MG/0.3 ML SYRINGE SQ SCH (10:35)
[2017-04-21 10:53] LABS: MAGNESIUM 1.8 MG/DL (1.5-2.5)
[2017-04-21] MEDS: VANCOMYCIN INJ 1,000 MG in SODIUM CHLOR 0.9% 250 ML INJ 250 ML IV SCH (13:43)
--- NOTE | 2017-04-21 14:34 | HHI.IDPN ---
Subjective Subjective Remarks Patient is an 82-year-old female brought in from the [place] [facility] facility after an episode of vomiting and diarrhea. She also had a transient hypotension and that has improved. On evaluation she was found to have a UTI. Juarez catheter was placed and she had cloudy urine. CT of the abdomen and pelvis did not show any significant abnormalities. She had some mild leukocytosis of 11,000. Her creatinine was a little bit elevated. Some fluids and some antibiotics. She had some fevers yesterday. Her urine culture has ESBL positive organism and strep viridans. 2 blood cultures are growing coag- negative staph, final ID still pending. Patient has been agitated on and off. She has pulled her IV's 2 yesterday. Patient also has pulled her Juarez catheter. Infectious disease consultation has been requested to evaluate the patient with UTI, ESBL positive. Notes reviewed [place] Bladder scan 26 ml NO new (+) BC BC with different Coag Neg Staph Antibiotics Invanz Current Medications Medications (Trade) Dose Ordered Sig/Pari Route Start Time Stop Time Status Last Admin (D50w (Vial) Inj) 50 ml UNSCH PRN IV PUSH 04/18/17 11:15 (Glucagon Inj) 1 mg UNSCH PRN OTHER 04/18/17 11:15 Sodium Chloride 1,000 ml @ 100 mls/hr Q10H IV 04/18/17 11:08 04/20/17 05:07 (NS Flush) 2 ml UNSCH PRN IV FLUSH 04/18/17 11:15 (NS Flush) 2 ml BID IV FLUSH 04/18/17 21:00 04/18/17 22:12 (Tylenol) 650 mg Q4H PRN PO 04/18/17 11:15 04/20/17 15:04 (Zofran Inj) 4 mg Q6H PRN IVP 04/18/17 11:15 (Compazine Supp) 25 mg Q12H PRN RECTAL 04/18/17 11:15 (Lovenox Inj) 30 mg Q24H SQ 04/18/17 12:00 04/21/17 10:35 (Tylenol) 650 mg Q6H PRN PO 04/18/17 11:15 ([place] 5-325 Mg) 1 tab Q4H PRN PO 04/18/17 11:15 ([place] 10-325 Mg) 1 tab Q4H PRN PO 04/18/17 11:15 (Morphine Inj) 2 mg Q3H PRN IV PUSH 04/18/17 11:15 (Morphine Inj) 4 mg Q3H PRN IV PUSH 04/18/17 11:15 (Narcan Inj) 0.4 mg UNSCH PRN IV PUSH 04/18/17 11:15 (Genevieve-Colace) 1 tab BID PO 04/18/17 21:00 04/21/17 08:08 (Milk Of Magnesia Liq) 30 ml Q12H PRN PO 04/18/17 11:15 (Senokot) 17.2 mg Q12H PRN PO 04/18/17 11:15 (Dulcolax Supp) 10 mg DAILY PRN RECTAL 04/18/17 11:15 (Lactulose Liq) 30 ml DAILY PRN PO 04/18/17 11:15 (Aspirin Chew) 81 mg DAILY CHEW 04/18/17 12:00 04/21/17 08:08 (CeleXA) 10 mg DAILY PO 04/18/17 12:00 04/21/17 08:08 (Depakote Sprinkles) 125 mg BID PO 04/18/17 12:00 04/21/17 08:08 (Toprol Xl) 12.5 mg DAILY PO 04/18/17 12:00 04/21/17 08:07 (Pill Splitter) 1 ea UNSCH PRN OTHER 04/18/17 11:45 Pharmacy Profile Note 0 ml @ 0 mls/hr UNSCH OTHER 04/19/17 09:00 Vancomycin HCl 1000 mg/Sodium Chloride 250 ml @ 125 mls/hr Q24H IV 04/19/17 11:00 04/21/17 13:43 Miscellaneous Information SPECIFIC LAB TO BE RONAK... ONCE ONCE .XX 04/22/17 10:45 04/22/17 10:46 (Pepcid) 10 mg BID PO 04/19/17 21:00 04/21/17 08:08 Ertapenem 1000 mg/ Sodium Chloride 100 ml @ 200 mls/hr Q24H IV 04/20/17 15:00 05/04/17 14:59 04/20/17 15:15 (Haldol Inj) 2 mg Q4H PRN IM 04/20/17 17:30 04/21/17 04:52 (Ativan Inj) 1 mg Q2H PRN IV PUSH 04/20/17 17:30 (SEROquel) 25 mg BID PO 04/20/17 21:00 04/21/17 08:07 (Prinivil) 10 mg DAILY PO 04/22/17 09:00 (Apresoline) 25 mg Q8H PO 04/21/17 18:00 Lines PIV Past Medical History Anemia by history Osteoarthritis Anxiety Depression Dementia Hypertension GERD Dementia History of cardiac rhythm issues Past Surgical History Brain surgery in 2008 Cholecystectomy Allergies: Coded Allergies: atorvastatin (Unverified Allergy, Unknown, 01/14/17) clotrimazole (Unverified Allergy, Unknown, 01/14/17) diltiazem (Unverified Allergy, Unknown, 01/14/17) iodine (Unverified Allergy, Unknown, 01/14/17) meperidine (Unverified Allergy, Unknown, 01/14/17) nifedipine (Unverified Allergy, Unknown, 01/14/17) potassium iodide (Unverified Allergy, Unknown, 01/14/17) povidone-iodine (Unverified Allergy, Unknown, 01/14/17) propranolol (Unverified Allergy, Unknown, 01/14/17) sertraline (Unverified Allergy, Unknown, 01/14/17) sodium iodide (Unverified Allergy, Unknown, 01/14/17) sodium iodide (Unverified Allergy, Unknown, 01/14/17) Objective . Vital Signs Date Time Temp Pulse Resp B/P (MAP) Pulse Ox O2 Delivery O2 Flow Rate FiO2 04/21/17 13:17 98.7 78 18 139/84 (102) 94 04/21/17 12:33 91 04/21/17 09:34 96 04/21/17 08:25 97.3 85 17 194/87 (122) 96 04/21/17 06:30 186/84 (118) 04/21/17 04:49 200/89 (126) 04/21/17 00:07 97 04/21/17 00:00 97.5 87 20 177/94 (121) 97 04/20/17 20:00 97.6 78 20 218/91 (133) 97 04/20/17 19:00 89 04/21/17 04/21/1717 15:00 23:00 07:00 Intake Total 340 ml Balance 340 ml Intake Oral 240 ml IV Total 100 ml # Voids 4 . Laboratory Tests Test 04/20/17 13:04 04/21/17 07:02 White Blood Count 6.6 TH/MM3 6.9 TH/MM3 Red Blood Count 2.99 MIL/MM3 3.53 MIL/MM3 Hemoglobin 10.0 GM/DL 11.9 GM/DL Hematocrit 29.8 % 34.7 % Mean Corpuscular Volume 99.8 FL 98.2 FL Mean Corpuscular Hemoglobin 33.6 PG 33.6 PG Mean Corpuscular Hemoglobin Concent 33.6 % 34.2 % Red Cell Distribution Width 12.8 % 12.3 % Platelet Count 250 TH/MM3 269 TH/MM3 Mean Platelet Volume 8.6 FL 8.5 FL Neutrophils (%) (Auto) 75.6 % Lymphocytes (%) (Auto) 15.5 % Monocytes (%) (Auto) 7.3 % Eosinophils (%) (Auto) 1.3 % Basophils (%) (Auto) 0.3 % Neutrophils # (Auto) 5.0 TH/MM3 Lymphocytes # (Auto) 1.0 TH/MM3 Monocytes # (Auto) 0.5 TH/MM3 Eosinophils # (Auto) 0.1 TH/MM3 Basophils # (Auto) 0.0 TH/MM3 CBC Comment DIFF FINAL Differential Comment Laboratory Tests Test 04/20/17 13:04 04/21/17 07:02 Blood Urea Nitrogen 16 MG/DL 8 MG/DL Creatinine 0.98 MG/DL 0.63 MG/DL Random Glucose 91 MG/DL 91 MG/DL Total Protein 6.0 GM/DL Albumin 2.4 GM/DL Calcium Level 7.7 MG/DL 8.5 MG/DL Phosphorus Level 1.8 MG/DL Magnesium Level 1.7 MG/DL 1.8 MG/DL Alkaline Phosphatase 56 U/L Aspartate Amino Transf (AST/SGOT) 19 U/L Alanine Aminotransferase (ALT/SGPT) 20 U/L Total Bilirubin 0.7 MG/DL Sodium Level 142 MEQ/L 143 MEQ/L Potassium Level 3.0 MEQ/L 2.6 MEQ/L Chloride Level 106 MEQ/L 107 MEQ/L Carbon Dioxide Level 25.2 MEQ/L 26.1 MEQ/L Anion Gap 11 MEQ/L 10 MEQ/L Estimat Glomerular Filtration Rate 54 ML/MIN 90 ML/MIN Microbiology Date/Time Source Procedure Growth Status 04/20/17 15:25 Blood Peripheral Aerobic Blood Culture - Preliminary NO GROWTH IN 1 DAY Resulted 04/20/17 15:25 Blood Peripheral Anaerobic Blood Culture - Preliminary NO GROWTH IN 1 DAY Resulted 04/20/17 15:19 Blood Peripheral Aerobic Blood Culture - Preliminary NO GROWTH IN 1 DAY Resulted 04/20/17 15:19 Blood Peripheral Anaerobic Blood Culture - Preliminary NO GROWTH IN 1 DAY Resulted Imaging Last Impressions Head CT 04/18/17 0000 Signed Impressions: Service Date/Time: Tuesday, April 18, 2017 08:06 - CONCLUSION: 1. 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 2. No acute intracranial abnormality. Abram Johnson MD Chest X-Ray 04/18/17 0000 Signed Impressions: Service Date/Time: Tuesday, April 18, 2017 09:29 - CONCLUSION: 1. No acute cardiopulmonary findings. Galo Elizalde MD Abdomen/Pelvis CT 04/18/17 0000 Signed Impressions: Service Date/Time: Tuesday, April 18, 2017 08:09 - CONCLUSION: 1. Diverticulosis without diverticulitis. 2. Status post cholecystectomy. 3. Small hiatal hernia. Abram Johnson MD Physical Exam GENERAL: Asleep, opens eyes when stimulated SKIN: Warm and dry. No generalized rash, no ecchymoses and no evidence of embolic lesions. HEAD: Atraumatic. Normocephalic. No temporal wasting, or tenderness. EYES: [place] conjunctiva. No petechia or hemorrhage. Pupils equal, round and reactive to light. Extraocular movements full and intact. No scleral icterus. No injection or drainage. EARS, NOSE AND THROAT: Nose without bleeding or purulent nasal discharge. No sinus tenderness. Mucous membranes pink and moist. No oral lesions noted. No exudate. No oral thrush. NECK: Trachea midline. Supple and not tender, no meningeal signs CARDIOVASCULAR: Regular rate and rhythm. No murmurs, rubs or gallops heard RESPIRATORY: Clear to auscultation. Breath sounds equal bilaterally. No rales , wheezing or rhonchi ABDOMEN: Soft, non-tender, nondistended. Bowel sounds present and normoactive. No guarding. No rebound. No organomegaly. EXTREMITIES: No clubbing, cyanosis, or edema. No joint effusion, has good ROM. No calf tenderness. Well perfused and warm. NEUROLOGICAL: resting. LINE: No evidence of infection Assessment & Plan Remarks IMPRESSION UTI, Ecoli ESBL+ and viridans Strep Possible sepsis, fevers (+) BC with Coag Neg Staph, ?significance Known dementia RECOMMENDATION Follow C/S Agree with IV Invanz, planned 14 days Stop IV Vanco Will ask CM to check about INvanz in [place] Monitor progress Will need midline Francheska Rowe MD Apr 21, 2017 14:34
[2017-04-21] MEDS: ERTAPENEM INJ 1,000 MG in SODIUM CHLORIDE 0.9% INJ 100 ML IV SCH (15:40)
--- NOTE | 2017-04-21 17:01 | HHI.PR ---
Subjective Remarks Follow up for ESBL UTI. Patient is drowsy but wakes up on verbal commands. Denies any chest pain, SOB, fever, chills. Objective Vitals Vital Signs Date Time Temp Pulse Resp B/P (MAP) Pulse Ox O2 Delivery O2 Flow Rate FiO2 04/21/17 13:17 98.7 78 18 139/84 (102) 94 04/21/17 12:33 91 04/21/17 09:34 96 04/21/17 08:25 97.3 85 17 194/87 (122) 96 04/21/17 06:30 186/84 (118) 04/21/17 04:49 200/89 (126) 04/21/17 00:07 97 04/21/17 00:00 97.5 87 20 177/94 (121) 97 04/20/17 20:00 97.6 78 20 218/91 (133) 97 04/20/17 19:00 89 I/O 04/20/17 04/20/17 04/20/17 04/21/17 04/21/17 04/21/17 07:00 15:00 23:00 07:00 15:00 23:00 Intake Total 870 ml 100 ml 340 ml 250 ml Balance 870 ml 100 ml 340 ml 250 ml Intake Oral 240 ml 240 ml IV Total 630 ml 100 ml 100 ml 250 ml Bladder Scan Volume Amount 26 ml # Voids 3 5 2 4 # Bowel Movements 0 0 Result Diagram: 04/21/17 0702 04/21/17 0702 Imaging Last Impressions Head CT 04/18/17 0000 Signed Impressions: Service Date/Time: Tuesday, April 18, 2017 08:06 - CONCLUSION: 1. 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 2. No acute intracranial abnormality. Abram Johnson MD Chest X-Ray 04/18/17 0000 Signed Impressions: Service Date/Time: Tuesday, April 18, 2017 09:29 - CONCLUSION: 1. No acute cardiopulmonary findings. Galo Elizalde MD Abdomen/Pelvis CT 04/18/17 0000 Signed Impressions: Service Date/Time: Tuesday, April 18, 2017 08:09 - CONCLUSION: 1. Diverticulosis without diverticulitis. 2. Status post cholecystectomy. 3. Small hiatal hernia. Abram Johnson MD Objective Remarks GENERAL: Drowsy, NAD. SKIN: Warm and dry. HEAD: Normocephalic. EYES: No scleral icterus. No injection or drainage. NECK: Supple, trachea midline. No JVD or lymphadenopathy. CARDIOVASCULAR: Regular rate and rhythm without murmurs, gallops, or rubs. RESPIRATORY: Breath sounds equal bilaterally. No accessory muscle use. GASTROINTESTINAL: Abdomen soft, non-tender, nondistended. MUSCULOSKELETAL: No cyanosis, or edema. BACK: Nontender without obvious deformity. No CVA tenderness. Procedures NONE A/P Problem List: (1) GERD (gastroesophageal reflux disease) ICD Code: K21.9 - Gastro-esophageal reflux disease without esophagitis (2) Hypertension ICD Code: I10 - Essential (primary) hypertension (3) Depression ICD Code: F32.9 - Major depressive disorder, single episode, unspecified (4) Anxiety ICD Code: F41.9 - Anxiety disorder, unspecified (5) Alzheimer's dementia ICD Code: G30.9 - Alzheimer's disease, unspecified (6) Vomiting ICD Code: R11.10 - Vomiting, unspecified Status: Acute (7) Altered mental status ICD Code: R41.82 - Altered mental status, unspecified Status: Acute (8) UTI (urinary tract infection) ICD Code: N39.0 - Urinary tract infection, site not specified Status: Acute (9) Sepsis ICD Code: A41.9 - Sepsis, unspecified organism Status: Acute Assessment and Plan This is a 82-year-old female residing in SNF who presented with nausea vomiting Bacteremia with coag negative staph -Patient was initially on Zosyn and vancomycin. Then urine was positive for ESBL and strep viridans. -Zosyn was discontinued and patient was started on ertapenem. Vancomycin discontinued by ID. - Repeat Blood cx negative so far. Urinary tract infection - Culture positive for ESBL E. Coli as well as viridans strep. - Continue Invanz X 14 days total. Hypokalemia Hypomagnesemia - K+ 2.6 and Mg 1.7. - Will replace K, Mg with IV formulations. - Repeat BMP in the AM. DNR. Lovenox. If Invanz can be arranged at a SNF, patient can likely be discharged. Problem Qualifiers (1) UTI (urinary tract infection): Qualified Codes: N30.00 - Acute cystitis without hematuria (2) Sepsis: Qualified Codes: A41.9 - Sepsis, unspecified organism Jeffery Baptiste DO Apr 21, 2017 17:01
[2017-04-21] MEDS: hydrALAZINE HCL 25 MG TAB PO SCH (17:24)
[2017-04-21] MEDS: MAGNESIUM SULFATE 1 GM PREMIX 100 ML IV SCH ×2 (17:24→18:29)
[2017-04-22] VITALS (8 sets, daily range): BP systolic 139–185; BP diastolic 65–83; PULSE 71–82; RESP 18–20; TEMP 97.1–98.4; O2SAT 94–98
[2017-04-22] MEDS: hydrALAZINE HCL 25 MG TAB PO SCH ×3 (02:22→17:31)
[2017-04-22] MEDS: SODIUM CHLOR 0.9% 1000 ML INJ 1,000 ML IV SCH ×2 (02:39→05:08)
[2017-04-22 06:53] LABS: BICARBONATE 23.6 MEQ/L (21.0-32.0); MAGNESIUM 2.5 MG/DL (1.5-2.5); POTASSIUM 3.2 MEQ/L (3.5-5.1)
[2017-04-22] MEDS ORDERED: POTASSIUM BICARBONATE 25 MEQ EFFERVESCENT TAB PO ONE (08:30)
[2017-04-22] MEDS ORDERED: NIFEdipine 60 MG SUSTAINED RELEASE TAB PO SCH (09:00)
[2017-04-22] MEDS ORDERED: LISINOPRIL 10 MG TAB PO SCH (09:00)
[2017-04-22] MEDS: DOCUSATE SODIUM 50 MG/SENNA 8.6 MG TAB PO SCH ×2 (09:00→22:37)
[2017-04-22] MEDS: FAMOTIDINE 20 MG TAB PO SCH ×2 (09:03→22:37)
[2017-04-22] MEDS: CITALOPRAM HYDROBROMIDE 20 MG TAB PO SCH (09:03)
[2017-04-22] MEDS: DIVALPROEX SODIUM SPRINKLES 125 MG CAP PO SCH ×2 (09:03→22:38)
[2017-04-22] MEDS: METOPROLOL SUCCINATE 25 MG EXTENDED RELEASE TAB PO SCH (09:04)
[2017-04-22] MEDS: QUEtiapine FUMARATE 25 MG TAB PO SCH ×2 (09:04→21:00)
[2017-04-22] MEDS: SODIUM CHLORIDE 0.9% FLUSH 10 ML FLUSH IV FLUSH SCH (09:06)
[2017-04-22] MEDS: ASPIRIN 81 MG CHEW TAB CHEW SCH (09:08)
[2017-04-22] MEDS ORDERED: PHARMACY ORDERED LAB ONE (10:45)
--- NOTE | 2017-04-22 10:49 | HHI.PR ---
Subjective Remarks patient very sleepy, opened eyes to call of her name then drifts off to sleep per staff nurse- got Seroquel this am- past 2 days- very agitated and thrashing around this am- they fed her and she ate 75 % Objective Vitals Vital Signs Date Time Temp Pulse Resp B/P (MAP) Pulse Ox O2 Delivery O2 Flow Rate FiO2 04/22/17 08:00 97.1 79 18 160/73 (102) 95 04/22/17 04:00 97.6 71 20 139/65 (89) 94 04/22/17 00:09 74 04/22/17 00:00 97.5 76 20 142/71 (94) 94 04/21/17 23:32 87 04/21/17 20:00 99.2 63 20 140/63 (88) 95 04/21/17 17:04 97.7 73 18 147/77 (100) 97 04/21/17 13:17 98.7 78 18 139/84 (102) 94 04/21/17 12:33 91 I/O 04/21/17 04/21/17 04/21/17 04/22/17 04/22/17 04/22/17 07:00 15:00 23:00 07:00 15:00 23:00 Intake Total 340 ml 1027 ml 780 ml Balance 340 ml 1027 ml 780 ml Intake Oral 240 ml IV Total 100 ml 1027 ml 780 ml # Voids 2 4 0 1 # Bowel Movements 0 Result Diagram: 04/21/17 0702 04/22/17 0549 Imaging Last Impressions Head CT 04/18/17 0000 Signed Impressions: Service Date/Time: Tuesday, April 18, 2017 08:06 - CONCLUSION: 1. 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 2. No acute intracranial abnormality. Abram Johnson MD Chest X-Ray 04/18/17 0000 Signed Impressions: Service Date/Time: Tuesday, April 18, 2017 09:29 - CONCLUSION: 1. No acute cardiopulmonary findings. Galo Elizalde MD Abdomen/Pelvis CT 04/18/17 0000 Signed Impressions: Service Date/Time: Tuesday, April 18, 2017 08:09 - CONCLUSION: 1. Diverticulosis without diverticulitis. 2. Status post cholecystectomy. 3. Small hiatal hernia. Abram Johnson MD Objective Remarks drowsy, openend eyes to call to her name, needs vigorous stimulus to anicteric no nuchal rigidity lungs- no rales regular rhythm abdomen soft, + bowel sounds extremities no edema moves all extremities- to repeated stimuli Procedures NONE A/P Problem List: (1) GERD (gastroesophageal reflux disease) ICD Code: K21.9 - Gastro-esophageal reflux disease without esophagitis (2) Hypertension ICD Code: I10 - Essential (primary) hypertension (3) Depression ICD Code: F32.9 - Major depressive disorder, single episode, unspecified (4) Anxiety ICD Code: F41.9 - Anxiety disorder, unspecified (5) Alzheimer's dementia ICD Code: G30.9 - Alzheimer's disease, unspecified (6) Vomiting ICD Code: R11.10 - Vomiting, unspecified Status: Acute (7) Altered mental status ICD Code: R41.82 - Altered mental status, unspecified Status: Acute (8) UTI (urinary tract infection) ICD Code: N39.0 - Urinary tract infection, site not specified Status: Acute (9) Sepsis ICD Code: A41.9 - Sepsis, unspecified organism Status: Acute Assessment and Plan This is a 82-year-old female residing in SNF who presented with nausea vomiting Sepsis secondary to UTI ESBL -Patient was initially on Zosyn and vancomycin. Then urine was positive for ESBL and strep viridans. - on ertapenem. DC Vancomycin - Repeat Blood cx negative so far. ID ff - Culture positive for ESBL E. Coli as well as viridans strep. - Continue Invanz X 14 days total. Hypokalemia Hypomagnesemia - K+ 2.6 and Mg 1.7. - Will replace K with 30 meq po x 1 now - Repeat BMP in the AM. Decrease in MS- decrease Seroquel to 12 ,.5 mg hs DNR. Lovenox. If Invanz can be arranged at a SNF, patient can likely be discharged. Problem Qualifiers (1) Hypertension: Qualified Codes: I10 - Essential (primary) hypertension (2) UTI (urinary tract infection): Qualified Codes: N30.00 - Acute cystitis without hematuria (3) Sepsis: Qualified Codes: A41.9 - Sepsis, unspecified organism Jemma Ching MD Apr 22, 2017 10:49
[2017-04-22] MEDS ORDERED: POTASSIUM CHLORIDE 10 MEQ CONTROLLED RELEASE TAB PO ONE (11:15)
[2017-04-22] MEDS ORDERED: HYDR-3799 PO (11:33)
[2017-04-22] MEDS ORDERED: FAMO20TA2 PO (11:33)
[2017-04-22] MEDS ORDERED: SERO25TA PO (11:33)
--- NOTE | 2017-04-22 12:02 | HHI.IDPN ---
Subjective Subjective Remarks Patient is an 82-year-old female brought in from the longterm facility after an episode of vomiting and diarrhea. She also had a transient hypotension and that has improved. On evaluation she was found to have a UTI. Juarez catheter was placed and she had cloudy urine. CT of the abdomen and pelvis did not show any significant abnormalities. She had some mild leukocytosis of 11,000. Her creatinine was a little bit elevated. Some fluids and some antibiotics. She had some fevers yesterday. Her urine culture has ESBL positive organism and strep viridans. 2 blood cultures are growing coag- negative staph, final ID still pending. Patient has been agitated on and off. She has pulled her IV's 2 yesterday. Patient also has pulled her Juarez catheter. Infectious disease consultation has been requested to evaluate the patient with UTI, ESBL positive. Notes reviewed Temps ok More awake today than yesterday Ate very little breakfast Bladder scan 26 ml NO new (+) BC BC with different Coag Neg Staph Antibiotics Invanz Current Medications Medications (Trade) Dose Ordered Sig/Pari Route Start Time Stop Time Status Last Admin (D50w (Vial) Inj) 50 ml UNSCH PRN IV PUSH 04/18/17 11:15 (Glucagon Inj) 1 mg UNSCH PRN OTHER 04/18/17 11:15 (NS Flush) 2 ml UNSCH PRN IV FLUSH 04/18/17 11:15 (NS Flush) 2 ml BID IV FLUSH 04/18/17 21:00 04/22/17 09:06 (Tylenol) 650 mg Q4H PRN PO 04/18/17 11:15 04/20/17 15:04 (Zofran Inj) 4 mg Q6H PRN IVP 04/18/17 11:15 (Compazine Supp) 25 mg Q12H PRN RECTAL 04/18/17 11:15 (Tylenol) 650 mg Q6H PRN PO 04/18/17 11:15 ([place] 5-325 Mg) 1 tab Q4H PRN PO 04/18/17 11:15 ([place] 10-325 Mg) 1 tab Q4H PRN PO 04/18/17 11:15 (Morphine Inj) 2 mg Q3H PRN IV PUSH 04/18/17 11:15 (Morphine Inj) 4 mg Q3H PRN IV PUSH 04/18/17 11:15 (Narcan Inj) 0.4 mg UNSCH PRN IV PUSH 04/18/17 11:15 (Genevieve-Colace) 1 tab BID PO 04/18/17 21:00 04/21/17 08:08 (Milk Of Magnesia Liq) 30 ml Q12H PRN PO 04/18/17 11:15 (Senokot) 17.2 mg Q12H PRN PO 04/18/17 11:15 (Dulcolax Supp) 10 mg DAILY PRN RECTAL 04/18/17 11:15 (Lactulose Liq) 30 ml DAILY PRN PO 04/18/17 11:15 (Aspirin Chew) 81 mg DAILY CHEW 04/18/17 12:00 04/22/17 09:08 (CeleXA) 10 mg DAILY PO 04/18/17 12:00 04/22/17 09:03 (Depakote Sprinkles) 125 mg BID PO 04/18/17 12:00 04/22/17 09:03 (Toprol Xl) 12.5 mg DAILY PO 04/18/17 12:00 04/22/17 09:04 (Pill Splitter) 1 ea UNSCH PRN OTHER 04/18/17 11:45 (Pepcid) 10 mg BID PO 04/19/17 21:00 04/22/17 09:03 Ertapenem 1000 mg/ Sodium Chloride 100 ml @ 200 mls/hr Q24H IV 04/20/17 15:00 05/04/17 14:59 04/21/17 15:40 (Haldol Inj) 2 mg Q4H PRN IM 04/20/17 17:30 04/21/17 04:52 (Ativan Inj) 1 mg Q2H PRN IV PUSH 04/20/17 17:30 (Prinivil) 10 mg DAILY PO 04/22/17 09:00 04/22/17 09:04 (Apresoline) 25 mg Q8H PO 04/21/17 18:00 04/22/17 09:08 (Lovenox Inj) 40 mg Q24H SQ 04/22/17 12:00 (SEROquel) 12.5 mg HS PO 04/22/17 21:00 Lines PIV Past Medical History Anemia by history Osteoarthritis Anxiety Depression Dementia Hypertension GERD Dementia History of cardiac rhythm issues Past Surgical History Brain surgery in 2008 Cholecystectomy Allergies: Coded Allergies: atorvastatin (Unverified Allergy, Unknown, 01/14/17) clotrimazole (Unverified Allergy, Unknown, 01/14/17) diltiazem (Unverified Allergy, Unknown, 01/14/17) iodine (Unverified Allergy, Unknown, 01/14/17) meperidine (Unverified Allergy, Unknown, 01/14/17) nifedipine (Unverified Allergy, Unknown, 01/14/17) potassium iodide (Unverified Allergy, Unknown, 01/14/17) povidone-iodine (Unverified Allergy, Unknown, 01/14/17) propranolol (Unverified Allergy, Unknown, 01/14/17) sertraline (Unverified Allergy, Unknown, 01/14/17) sodium iodide (Unverified Allergy, Unknown, 01/14/17) sodium iodide (Unverified Allergy, Unknown, 01/14/17) Objective . Vital Signs Date Time Temp Pulse Resp B/P (MAP) Pulse Ox O2 Delivery O2 Flow Rate FiO2 04/22/17 08:00 97.1 79 18 160/73 (102) 95 04/22/17 04:00 97.6 71 20 139/65 (89) 94 04/22/17 00:09 74 04/22/17 00:00 97.5 76 20 142/71 (94) 94 04/21/17 23:32 87 04/21/17 20:00 99.2 63 20 140/63 (88) 95 04/21/17 17:04 97.7 73 18 147/77 (100) 97 04/21/17 13:17 98.7 78 18 139/84 (102) 94 04/21/17 12:33 91 . Laboratory Tests Test 04/20/17 13:04 04/21/17 07:02 White Blood Count 6.6 TH/MM3 6.9 TH/MM3 Red Blood Count 2.99 MIL/MM3 3.53 MIL/MM3 Hemoglobin 10.0 GM/DL 11.9 GM/DL Hematocrit 29.8 % 34.7 % Mean Corpuscular Volume 99.8 FL 98.2 FL Mean Corpuscular Hemoglobin 33.6 PG 33.6 PG Mean Corpuscular Hemoglobin Concent 33.6 % 34.2 % Red Cell Distribution Width 12.8 % 12.3 % Platelet Count 250 TH/MM3 269 TH/MM3 Mean Platelet Volume 8.6 FL 8.5 FL Neutrophils (%) (Auto) 75.6 % Lymphocytes (%) (Auto) 15.5 % Monocytes (%) (Auto) 7.3 % Eosinophils (%) (Auto) 1.3 % Basophils (%) (Auto) 0.3 % Neutrophils # (Auto) 5.0 TH/MM3 Lymphocytes # (Auto) 1.0 TH/MM3 Monocytes # (Auto) 0.5 TH/MM3 Eosinophils # (Auto) 0.1 TH/MM3 Basophils # (Auto) 0.0 TH/MM3 CBC Comment DIFF FINAL Differential Comment Laboratory Tests Test 04/20/17 13:04 04/21/17 07:02 04/22/17 05:49 Blood Urea Nitrogen 16 MG/DL 8 MG/DL 15 MG/DL Creatinine 0.98 MG/DL 0.63 MG/DL 0.78 MG/DL Random Glucose 91 MG/DL 91 MG/DL 87 MG/DL Total Protein 6.0 GM/DL Albumin 2.4 GM/DL Calcium Level 7.7 MG/DL 8.5 MG/DL 8.2 MG/DL Phosphorus Level 1.8 MG/DL Magnesium Level 1.7 MG/DL 1.8 MG/DL 2.5 MG/DL Alkaline Phosphatase 56 U/L Aspartate Amino Transf (AST/SGOT) 19 U/L Alanine Aminotransferase (ALT/SGPT) 20 U/L Total Bilirubin 0.7 MG/DL Sodium Level 142 MEQ/L 143 MEQ/L 143 MEQ/L Potassium Level 3.0 MEQ/L 2.6 MEQ/L 3.2 MEQ/L Chloride Level 106 MEQ/L 107 MEQ/L 108 MEQ/L Carbon Dioxide Level 25.2 MEQ/L 26.1 MEQ/L 23.6 MEQ/L Anion Gap 11 MEQ/L 10 MEQ/L 11 MEQ/L Estimat Glomerular Filtration Rate 54 ML/MIN 90 ML/MIN 70 ML/MIN Microbiology Date/Time Source Procedure Growth Status 04/20/17 15:25 Blood Peripheral Aerobic Blood Culture - Preliminary NO GROWTH IN 2 DAYS Resulted 04/20/17 15:25 Blood Peripheral Anaerobic Blood Culture - Preliminary NO GROWTH IN 2 DAYS Resulted 04/20/17 15:19 Blood Peripheral Aerobic Blood Culture - Preliminary NO GROWTH IN 2 DAYS Resulted 04/20/17 15:19 Blood Peripheral Anaerobic Blood Culture - Preliminary NO GROWTH IN 2 DAYS Resulted Imaging Last Impressions Head CT 04/18/17 0000 Signed Impressions: Service Date/Time: Tuesday, April 18, 2017 08:06 - CONCLUSION: 1. 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 2. No acute intracranial abnormality. Abram Johnson MD Chest X-Ray 04/18/17 0000 Signed Impressions: Service Date/Time: Tuesday, April 18, 2017 09:29 - CONCLUSION: 1. No acute cardiopulmonary findings. Galo Elizalde MD Abdomen/Pelvis CT 04/18/17 0000 Signed Impressions: Service Date/Time: Tuesday, April 18, 2017 08:09 - CONCLUSION: 1. Diverticulosis without diverticulitis. 2. Status post cholecystectomy. 3. Small hiatal hernia. Abram Johnson MD Physical Exam GENERAL: Awake, following commands, sluggish SKIN: Warm and dry. No generalized rash, no ecchymoses and no evidence of embolic lesions. HEAD: Atraumatic. Normocephalic. No temporal wasting, or tenderness. EYES: Boling conjunctiva. No petechia or hemorrhage. Pupils equal, round and reactive to light. Extraocular movements full and intact. No scleral icterus. No injection or drainage. EARS, NOSE AND THROAT: Nose without bleeding or purulent nasal discharge. No sinus tenderness. Mucous membranes pink and moist. No oral lesions noted. No exudate. No oral thrush. NECK: Trachea midline. Supple and not tender, no meningeal signs CARDIOVASCULAR: Regular rate and rhythm. No murmurs, rubs or gallops heard RESPIRATORY: Clear to auscultation. Breath sounds equal bilaterally. No rales , wheezing or rhonchi ABDOMEN: Soft, non-tender, nondistended. Bowel sounds present and normoactive. No guarding. No rebound. No organomegaly. EXTREMITIES: No clubbing, cyanosis, or edema. No joint effusion, has good ROM. No calf tenderness. Well perfused and warm. NEUROLOGICAL: more awake than yesterday, responding, following commands LINE: No evidence of infection Assessment & Plan Remarks IMPRESSION UTI, Ecoli ESBL+ and viridans Strep Possible sepsis, fevers (+) BC with Coag Neg Staph, ?significance Known dementia RECOMMENDATION Midline Give invanz until Dec 3 Monitor progress I will fill out infusion form Francheska Rowe MD Apr 22, 2017 12:02
--- NOTE | 2017-04-22 12:04 | HHI.FF ---
Infusion Therapy Location of Infusion Therapy: [facility] Infusion Therapy Order Patient Information Patient Weight 50.1 kg Diagnosis: Diagnosis E coli UTI ESBL+ Coded Allergies: atorvastatin (Unverified Allergy, Unknown, 01/14/17) clotrimazole (Unverified Allergy, Unknown, 01/14/17) diltiazem (Unverified Allergy, Unknown, 01/14/17) iodine (Unverified Allergy, Unknown, 01/14/17) meperidine (Unverified Allergy, Unknown, 01/14/17) nifedipine (Unverified Allergy, Unknown, 01/14/17) potassium iodide (Unverified Allergy, Unknown, 01/14/17) povidone-iodine (Unverified Allergy, Unknown, 01/14/17) propranolol (Unverified Allergy, Unknown, 01/14/17) sertraline (Unverified Allergy, Unknown, 01/14/17) sodium iodide (Unverified Allergy, Unknown, 01/14/17) sodium iodide (Unverified Allergy, Unknown, 01/14/17) Administer Medication Ertapenem 1 gram IV q 24 hours Stop Treatment: May 04, 2017 Additional Information Venous access: Other (Midline) Additional Instructions [x] Peripheral flush and dressing changes per protocol [x] Implanted port and central open hearth door liner: * Implanted port: 10 ml Normal Saline followed by 5 ml Heparin 100 units/ml Heparin flush after each use and monthly to maintain. [] May leave port accessed during therapy. [] May leave peripheral site accessed for duration of therapy. [x] If patient has SOB or respiratory distress, check oxygen saturation. If less than 90% or clinical signs of respiratory distress, administer oxygen at 2 L/min. via nasal cannula and notify physician. [x] Anaphylaxis/Reaction orders: * Stop infusion. * Keep IV line open with saline flush. * Notify physician. * Monitor vital signs every 15 minutes until symptoms resolve. * Check Oxygen saturation; Oxygen at 2 L/min. via nasal cannula if less than 90% or clinical signs of respiratory distress. * Administer diphenhydramine (Benadryl) 25 mg IV STAT, (unless patient has received as pre-med). May repeat once, if necessary. * Solu-Cortef 250 mg IVP over 30-60 seconds, use 100 mg vials for each dissolution. * Epinephrine (1mg/1 ml) 0.3 mg subcutaneously or IVP now with any signs of respiratory distress. * Check with physician for new additional pre-med orders if patient is re- challenged or re-treated. [x] May remove PICC line when treatment complete, after confirming with Physician. [x] If the patient is admitted to the hospital, the ED, or transferred via [facility] , complete transfer form including medication reconciliation order sheet. Laboratory Tests Weekly Labs: CBC w/diff, CMP (Labs on 04/29) Francheska Rowe MD Apr 22, 2017 12:04
[2017-04-22] MEDS: ENOXAPARIN SODIUM 40 MG/0.4 ML SYRINGE SQ SCH (12:18)
[2017-04-22] MEDS: ERTAPENEM INJ 1,000 MG in SODIUM CHLORIDE 0.9% INJ 100 ML IV SCH (15:56)
[2017-04-23] VITALS (7 sets, daily range): BP systolic 147–188; BP diastolic 67–87; PULSE 68–84; RESP 16–21; TEMP 97.5–99.2; O2SAT 93–100
[2017-04-23] MEDS: hydrALAZINE HCL 25 MG TAB PO SCH ×3 (02:25→16:22)
--- NOTE | 2017-04-23 08:01 | HHI.PR ---
Subjective Remarks awake and alert oriented to person, ff all commands interactive no complains of pain nausea or vomiting Objective Vitals Vital Signs Date Time Temp Pulse Resp B/P (MAP) Pulse Ox O2 Delivery O2 Flow Rate FiO2 04/23/17 00:00 97.6 79 18 188/83 (118) 97 04/22/17 22:40 94 04/22/17 20:00 97.4 81 18 173/79 (110) 98 04/22/17 16:55 98.3 78 18 185/82 (116) 97 04/22/17 12:29 98.4 82 18 142/83 (102) 96 04/22/17 08:00 97.1 79 18 160/73 (102) 95 I/O 04/22/17 04/22/17 04/22/17 04/23/17 04/23/17 04/23/17 07:00 15:00 23:00 07:00 15:00 23:00 Intake Total 780 ml 120 ml 551 ml Balance 780 ml 120 ml 551 ml Intake Oral 120 ml IV Total 780 ml 551 ml # Voids 1 3 1 # Bowel Movements 2 1 Result Diagram: 04/21/17 0702 04/22/17 0549 Imaging Last Impressions Head CT 04/18/17 0000 Signed Impressions: Service Date/Time: Tuesday, April 18, 2017 08:06 - CONCLUSION: 1. 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 2. No acute intracranial abnormality. Abram Johnson MD Chest X-Ray 04/18/17 0000 Signed Impressions: Service Date/Time: Tuesday, April 18, 2017 09:29 - CONCLUSION: 1. No acute cardiopulmonary findings. Galo Elizalde MD Abdomen/Pelvis CT 04/18/17 0000 Signed Impressions: Service Date/Time: Tuesday, April 18, 2017 08:09 - CONCLUSION: 1. Diverticulosis without diverticulitis. 2. Status post cholecystectomy. 3. Small hiatal hernia. Abram Johnson MD Objective Remarks awake and alert, interactive, oriented to person, ff all commands anicteric no nuchal rigidity lungs- no rales regular rhythm abdomen soft, + bowel sounds, no bladder distention extremities no edema, LUE- PICC in place moves all extremities- spontaenously Procedures NONE A/P Problem List: (1) GERD (gastroesophageal reflux disease) ICD Code: K21.9 - Gastro-esophageal reflux disease without esophagitis (2) Hypertension ICD Code: I10 - Essential (primary) hypertension (3) Depression ICD Code: F32.9 - Major depressive disorder, single episode, unspecified (4) Anxiety ICD Code: F41.9 - Anxiety disorder, unspecified (5) Alzheimer's dementia ICD Code: G30.9 - Alzheimer's disease, unspecified (6) Vomiting ICD Code: R11.10 - Vomiting, unspecified Status: Resolved (7) Altered mental status ICD Code: R41.82 - Altered mental status, unspecified Status: Acute (8) UTI (urinary tract infection) ICD Code: N39.0 - Urinary tract infection, site not specified Status: Acute (9) Sepsis ICD Code: A41.9 - Sepsis, unspecified organism Status: Acute Assessment and Plan This is a 82-year-old female residing in [facility] who presented with nausea vomiting Sepsis secondary to UTI ESBL -Patient was initially on Zosyn and vancomycin. Then urine was positive for ESBL and strep viridans. - on ertapenem. - Repeat Blood cx negative so far. ID ff - Culture positive for ESBL E. Coli as well as viridans strep. - Continue Invanz X 14 days total. till 05/04 Hypokalemia- corrected Hypomagnesemia- improved Decrease in MS- Resolved- likely secondary to Seroquel Seroquel dose down to 12.5 mg hs this am- awake and alert- did not need/get Seroquel last evening HYpertension - increase Lisinorpil to 20 mg dialy,. continue hydralazine 25 mg po tid DNR. Lovenox. SNF today Problem Qualifiers (1) Hypertension: Qualified Codes: I10 - Essential (primary) hypertension (2) UTI (urinary tract infection): Qualified Codes: N30.00 - Acute cystitis without hematuria (3) Sepsis: Qualified Codes: A41.9 - Sepsis, unspecified organism Jemma Ching MD Apr 23, 2017 08:01
[2017-04-23] MEDS ORDERED: ENOX40P SQ (08:10)
--- NOTE | 2017-04-23 08:11 | HHI.DS ---
Discharge Summary Admission Date Apr 18, 2017 at 11:09 Discharge Date: Apr 23, 2017 Admitting Diagnosis UTI, Sepsis (1) GERD (gastroesophageal reflux disease) ICD Code: K21.9 - Gastro-esophageal reflux disease without esophagitis (2) Altered mental status ICD Code: R41.82 - Altered mental status, unspecified Status: Acute (3) Sepsis ICD Code: A41.9 - Sepsis, unspecified organism Status: Acute (4) Alzheimer's dementia ICD Code: G30.9 - Alzheimer's disease, unspecified (5) Depression ICD Code: F32.9 - Major depressive disorder, single episode, unspecified (6) Hypertension ICD Code: I10 - Essential (primary) hypertension (7) Anxiety ICD Code: F41.9 - Anxiety disorder, unspecified (8) Vomiting ICD Code: R11.10 - Vomiting, unspecified Status: Resolved (9) UTI (urinary tract infection) ICD Code: N39.0 - Urinary tract infection, site not specified Status: Acute Procedures NONE Brief History - From Admission Patient is an 82-year-old female brought in from the halfway facility after an episode of vomiting and diarrhea. Per EMS staff was helpful at her baseline had some episode of vomiting and episode of loose stools and has states the blood pressure was low on arrival but improved with positioning and by the time she came to emergency department and improved to almost normal with only 100 mL's of IV fluid has history of dementia usually awake and alert and able to follow some commands and moves all 4 extremities Was found to have urinary tract infection and will be admitted and treated with Rocephin. Patient is also noted to be a DO NOT RESUSCITATE. The paperwork has been red and made a DO NOT RESUSCITATE here Discussed with the patient are N and the emergency room physician CBC/BMP: 04/21/17 0702 04/22/17 0549 Significant Findings Laboratory Tests Test 04/20/17 13:04 04/21/17 07:02 04/22/17 05:49 04/23/17 06:33 Red Blood Count 2.99 MIL/MM3 (4.00-5.30) 3.53 MIL/MM3 (4.00-5.30) Hemoglobin 10.0 GM/DL (11.6-15.3) Hematocrit 29.8 % (35.0-46.0) 34.7 % (35.0-46.0) Neutrophils (%) (Auto) 75.6 % (16.0-70.0) Total Protein 6.0 GM/DL (6.4-8.2) Albumin 2.4 GM/DL (3.4-5.0) Calcium Level 7.7 MG/DL (8.5-10.1) 8.2 MG/DL (8.5-10.1) Phosphorus Level 1.8 MG/DL (2.5-4.9) Potassium Level 3.0 MEQ/L (3.5-5.1) 2.6 MEQ/L (3.5-5.1) 3.2 MEQ/L (3.5-5.1) Estimat Glomerular Filtration Rate 54 ML/MIN (>89) 70 ML/MIN (>89) Chloride Level 108 MEQ/L (98-107) Imaging Last Impressions Head CT 04/18/17 0000 Signed Impressions: Service Date/Time: Tuesday, April 18, 2017 08:06 - CONCLUSION: 1. 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 2. No acute intracranial abnormality. Abram Johnson MD Chest X-Ray 04/18/17 0000 Signed Impressions: Service Date/Time: Tuesday, April 18, 2017 09:29 - CONCLUSION: 1. No acute cardiopulmonary findings. Galo Elizalde MD Abdomen/Pelvis CT 04/18/17 0000 Signed Impressions: Service Date/Time: Tuesday, April 18, 2017 08:09 - CONCLUSION: 1. Diverticulosis without diverticulitis. 2. Status post cholecystectomy. 3. Small hiatal hernia. Abram Johnson MD PE at Discharge awake and alert, interactive, oriented to person, ff all commands anicteric no nuchal rigidity lungs- no rales regular rhythm abdomen soft, + bowel sounds, no bladder distention extremities no edema, LUE- PICC in place moves all extremities- spontaenously Pt update on day of discharge awake and alet, interactive, speech clear good po afebrile ff commands Hospital Course This is a 82-year-old female residing in SNF who presented with nausea vomiting Sepsis secondary to UTI ESBL -Patient was initially on Zosyn and vancomycin. Then urine was positive for ESBL and strep viridans. - on ertapenem. - Repeat Blood cx negative so far. ID ff - Culture positive for ESBL E. Coli as well as viridans strep. - Continue Invanz X 14 days total. till 05/04 Hypokalemia- improved Hypomagnesemia- improved - CMP in 04/25 Decrease in MS- Resolved- likely secondary to Seroquel Deroquel dose down to 12.5 mg hs prn for agitation this am- awake and alert- did not need/get Seroquel last evening HYpertesnion- increase Lisinorpil to 20 mg daily continue Hydralazine 25 mg po tid monitor and adjust meds DNR. Lovenox. SNF today Pt Condition on Discharge: Stable Discharge Disposition: Discharge to SNF Discharge Time: <= 30 minutes Discharge Instructions DIET: Follow Instructions for: Heart Healthy Diet, Diabetic Diet Speech Therapy-Diet Recommends: Regular Activities you can perform: Weight Bearing as Thomas Follow up Referrals: PCP Follow-up - 04/24/17 with SNF New Orders: COMP MET PROF (CMP) - 04/25/17 New Medications: Enoxaparin Inj (Lovenox Inj) 40 Mg/0.4 Ml Syr 40 MG SQ Q24H for prophylaxis for 14 Days, INJECTION Famotidine (Famotidine) 20 Mg Tab 10 MG PO BID for giPRO for 30 Days, #60 TAB Hydralazine HCl (Hydralazine HCl) 25 Mg Tablet 25 MG PO Q8H for HTN for 30 Days, #90 TAB Lisinopril (Lisinopril) 10 Mg Tab 10 MG PO DAILY for htn for 30 Days, #30 TAB Quetiapine (Seroquel) 25 Mg Tab 12.5 MG PO HS for Agitation for 14 Days, #14 TAB Continued Medications: Alendronate (Fosamax) 70 Mg Tab 35 MG PO Q7D for Osteoporosis Treatment, #4 TAB 0 Refills Aspirin (Aspirin) 81 Mg Chew 81 MG CHEW DAILY, TAB 0 Refills B-Complex Vitamins (Vitamin B Complex) 1 Tab DAILY Citalopram (Citalopram) 10 Mg Tab 10 MG PO DAILY for Control Depression, #30 TAB [address] (Divalproex DR) 125 Mg Capdr 125 MG PO BID, CAP Metoprolol Succinate ER 24 HR (Metoprolol Succinate ER 24 HR) 25 Mg Tab 12.5 MG PO DAILY, #30 TAB 0 Refills Discontinued Medications: Ciprofloxacin (Ciprofloxacin) 250 Mg Tab 250 MG PO BID for Infection, #10 TAB 0 Refills Magnesium Hydroxide Liq (Milk of Magnesia Liq) 400 Mg/5 Ml Susp 30 ML PO DAILY PRN for INDIGESTION OR UPSET STOMACH, #1 BOTTLE 0 Refills Quetiapine (Quetiapine) 25 Mg Tab 25 MG PO DAILY, #30 TAB 0 Refills Jemma Ching MD Apr 23, 2017 08:11
[2017-04-23 08:21] LABS: BICARBONATE 20.7 MEQ/L (21.0-32.0)
[2017-04-23 08:22] LABS: POTASSIUM 3.8 MEQ/L (3.5-5.1)
[2017-04-23] MEDS ORDERED: LISI10TA3 PO (08:36)
[2017-04-23] MEDS: SODIUM CHLORIDE 0.9% FLUSH 10 ML FLUSH IV FLUSH SCH ×2 (08:52→21:14)
[2017-04-23] MEDS: CITALOPRAM HYDROBROMIDE 20 MG TAB PO SCH (08:52)
[2017-04-23] MEDS: METOPROLOL SUCCINATE 25 MG EXTENDED RELEASE TAB PO SCH (08:52)
[2017-04-23] MEDS: ASPIRIN 81 MG CHEW TAB CHEW SCH (08:53)
[2017-04-23] MEDS: FAMOTIDINE 20 MG TAB PO SCH ×2 (08:53→21:00)
[2017-04-23] MEDS: DOCUSATE SODIUM 50 MG/SENNA 8.6 MG TAB PO SCH ×2 (08:53→21:00)
[2017-04-23] MEDS: DIVALPROEX SODIUM SPRINKLES 125 MG CAP PO SCH ×2 (08:53→21:00)
[2017-04-23] MEDS ORDERED: LISINOPRIL 20 MG TAB PO SCH (09:00)
[2017-04-23] MEDS: ENOXAPARIN SODIUM 40 MG/0.4 ML SYRINGE SQ SCH (12:00)
--- NOTE | 2017-04-23 13:02 | HHI.PR ---
Addendum to Inpatient Note Addendum Reason: Additional Documentation Additional Information patient about to be DC- transport to wheelchair when patient became flaccid and unresponsive [facility] called patient aphasic, left lateral gaze, pupils equal + facial asymmetry, extremities flaccid -no gag reflex later was able to life and move both UE spontaenously stroke alert called stat Head CT/EKG/Labs now Neurology consulted- d/w Dr. Umana- if negative for bleed- will give TPA + allergy to Iodine stat head CT negative for bleed- transfer to unit bed. will give TPA get MRI/MRA of the head/EEG called phone listed- got machine- left message with Mr. Dillon Lin for call back 2:15- spoke to Toro Wagner and updated him of current status informed him fo transfer to [facility] [place] [address] Jemma Ching MD Apr 23, 2017 13:02
--- NOTE | 2017-04-23 13:22 | RADRPT ---
EXAM DATE/TIME: 04/23/2017 13:13 [facility] COMPARISON: CT BRAIN W/O CONTRAST, April 18, 2017, 8:06. INDICATIONS : Stroke Alert- Left sided weakness. RADIATION DOSE: 29.95 CTDIvol (mGy) This report was called by <Dr. Balderrama> to Dr. Mendoza at [phone] MEDICAL HISTORY : Hypertension. Dementia. SURGICAL HISTORY : Craniotomy. ENCOUNTER: Initial ACUITY: 1 day PAIN SCALE: Non-responsive LOCATION: Left cranial TECHNIQUE: Multiple contiguous axial images were obtained of the head. Using automated exposure control and adj ustment of the mA and/or kV according to patient size, radiation dose was kept as low as reasonably a chievable to obtain optimal diagnostic quality images. DICOM format image data is available electro nically for review and comparison. FINDINGS: CEREBRUM: There is a large area of encephalomalacia involving the right temporal and occipital lobes . The arslan tricles are normal for age. No evidence of midline shift, mass lesion, hemorrhage or acute infarctio n. Small lacunar infarcts in the right internal capsule. No extra-axial fluid collections are seen. POSTERIOR FOSSA: The cerebellum and brainstem are intact. The 4th ventricle is midline. The cerebellopontine angle i s unremarkable. EXTRACRANIAL: The visualized portion of the orbits is intact. SKULL: The calvaria is intact. No evidence of skull fracture. CONCLUSION: Stable examination. Large area of encephalomalacia involving the right temporal and occipital lobes. No evidence of acute hemorrhage or edema. Xander Balderrama MD on April 23, 2017 at 13:19 Board Certified Radiologist. This report was verified electronically.
[2017-04-23 13:28] LABS: I-STAT POTASSIUM 3.2 MMOL/L (3.5-4.9); I-STAT SODIUM 141 MMOL/L (138-146)
[2017-04-23 13:47] LABS: CREATINE KINASE 149 U/L (26-192)
[2017-04-23] MEDS ORDERED: SODIUM CHLORIDE 0.9% 50 ML BAG IVF ONE (14:00)
[2017-04-23] MEDS ORDERED: ALTEPLASE BOLUS 9 MG/9 ML SYR IV ONE (14:00)
[2017-04-23] MEDS ORDERED: ALTEPLASE DRIP 40.5 MG in SYRINGE/BAG 1 EA IV ONE (14:00)
[2017-04-23] MEDS ORDERED: MISCELLANEOUS NURSING INFORMATION XX PRN (14:00)
[2017-04-23] MEDS ORDERED: POTA10CA PO (15:13)
--- NOTE | 2017-04-23 15:16 | RADRPT ---
EXAM DATE/TIME: 04/23/2017 14:23 [facility] COMPARISON: No previous studies available for comparison. INDICATIONS : Left sided weakness. MEDICAL HISTORY : Hypertension. Dementia. SURGICAL HISTORY : craniotomy ENCOUNTER: Initial ACUITY: 1 day PAIN SCORE: 0/10 LOCATION: cranial TECHNIQUE: Multiplanar, multisequence MRI of the brain was performed without contrast. FINDINGS: A large area of encephalomalacia involving the right occipital lobe. Overlying atrophy. Multiple foci of high flair signal involving the periventricular white matter of both cerebral hemispheres. This i s essentially confluent in nature. No hemorrhage, acute infarction, or a mass. Ventricles are normal in size. Orbital structures are unremarkable. Paranasal sinuses are clear. Fluid signal within the le ft mastoid air cells. The right mastoid air cells are clear. CONCLUSION: 1. No acute intracranial abnormality. 2. Encephalomalacia right occipital lobe. 3. Atrophy and chronic small vessel ischemic change. 4. Fluid signal within the mastoid air cells on the left. Clinical evaluation for any signs of acute mastoiditis suggested. Roni Fox Jr., MD on April 23, 2017 at 15:12 Board Certified Radiologist. This report was verified electronically.
--- NOTE | 2017-04-23 15:24 | PD.CONS ---
History of Present Illness Service Neurology Consult Requested By medical Reason for Consult stroke alert Primary Care Physician No Primary Care Physician History of Present Illness 82-year-old female [facility] after an episode of vomiting and diarrhea.found to have a uti. has underlying dementia. has had some agitation during hospital stay but has been conversant and christ[place] until around noon today. was going to be dc'd when suddenly she became aphasic and had rt sided weakness, followed by generalized weakness, left gaze deviation. no involuntary movements. case d/w medical service. no recent hx of stroke/gib/mi. ct brain showed an old rt mca stroke. pt unable to give any hx. hx obtained from medical chart. Review of Systems limited 2/2 pt's mental status Past Family Social History Allergies: Coded Allergies: atorvastatin (Unverified Allergy, Unknown, 01/14/17) clotrimazole (Unverified Allergy, Unknown, 01/14/17) diltiazem (Unverified Allergy, Unknown, 01/14/17) iodine (Unverified Allergy, Unknown, 01/14/17) meperidine (Unverified Allergy, Unknown, 01/14/17) nifedipine (Unverified Allergy, Unknown, 01/14/17) potassium iodide (Unverified Allergy, Unknown, 01/14/17) povidone-iodine (Unverified Allergy, Unknown, 01/14/17) propranolol (Unverified Allergy, Unknown, 01/14/17) sertraline (Unverified Allergy, Unknown, 01/14/17) sodium iodide (Unverified Allergy, Unknown, 01/14/17) sodium iodide (Unverified Allergy, Unknown, 01/14/17) Past Medical History Anemia by history Osteoarthritis Anxiety Depression Dementia Hypertension GERD Dementia History of cardiac rhythm issues Past Surgical History Brain surgery in 2007 Cholecystectomy Reported Medications I attest that I obtained, updated or reviewed the home and current medications. Reported Meds & Active Scripts Active Ciprofloxacin (Ciprofloxacin HCl) 250 Mg Tab 250 Mg PO BID Reported Quetiapine (Quetiapine Fumarate) 25 Mg Tab 25 Mg PO DAILY Acetaminophen 325 Mg Tab 325 Mg PO Q4-6H PRN Divalproex DR (Divalproex Sodium) 125 Mg Capdr 125 Mg PO BID Metoprolol Succinate ER 24 HR (Metoprolol Succinate) 25 Mg Tab 12.5 Mg PO DAILY Vitamin B Complex (B-Complex Vitamins) 1 Tab DAILY Milk of Magnesia Liq (Magnesium Hydroxide) 400 Mg/5 Ml Susp 30 Ml PO DAILY PRN Fosamax (Alendronate Sodium) 70 Mg Tab 35 Mg PO Q7D Citalopram (Citalopram Hydrobromide) 10 Mg Tab 10 Mg PO DAILY Aspirin 81 Mg Chew 81 Mg CHEW DAILY Family History Not known Social History [facility]ides in a [facility] No smoking No alcohol abuse No illicit drugs Past Family Social History Allergies: Coded Allergies: atorvastatin (Unverified Allergy, Unknown, 01/14/17) clotrimazole (Unverified Allergy, Unknown, 01/14/17) diltiazem (Unverified Allergy, Unknown, 01/14/17) iodine (Unverified Allergy, Unknown, 01/14/17) meperidine (Unverified Allergy, Unknown, 01/14/17) nifedipine (Unverified Allergy, Unknown, 01/14/17) potassium iodide (Unverified Allergy, Unknown, 01/14/17) povidone-iodine (Unverified Allergy, Unknown, 01/14/17) propranolol (Unverified Allergy, Unknown, 01/14/17) sertraline (Unverified Allergy, Unknown, 01/14/17) sodium iodide (Unverified Allergy, Unknown, 01/14/17) sodium iodide (Unverified Allergy, Unknown, 01/14/17) Active Ordered Medications Current Medications Medications (Trade) Dose Ordered Sig/Pari Route Start Time Stop Time Status Last Admin (D50w (Vial) Inj) 50 ml UNSCH PRN IV PUSH 04/18/17 11:15 (Glucagon Inj) 1 mg UNSCH PRN OTHER 04/18/17 11:15 (NS Flush) 2 ml UNSCH PRN IV FLUSH 04/18/17 11:15 (NS Flush) 2 ml BID IV FLUSH 04/18/17 21:00 04/23/17 08:52 (Tylenol) 650 mg Q4H PRN PO 04/18/17 11:15 04/20/17 15:04 (Zofran Inj) 4 mg Q6H PRN IVP 04/18/17 11:15 (Compazine Supp) 25 mg Q12H PRN RECTAL 04/18/17 11:15 (Tylenol) 650 mg Q6H PRN PO 04/18/17 11:15 04/23/17 05:31 ([place]uga 5-325 Mg) 1 tab Q4H PRN PO 04/18/17 11:15 ([place] 10-325 Mg) 1 tab Q4H PRN PO 04/18/17 11:15 (Morphine Inj) 2 mg Q3H PRN IV PUSH 04/18/17 11:15 (Morphine Inj) 4 mg Q3H PRN IV PUSH 04/18/17 11:15 (Narcan Inj) 0.4 mg UNSCH PRN IV PUSH 04/18/17 11:15 (Genevieve-Colace) 1 tab BID PO 04/18/17 21:00 04/23/17 08:53 (Milk Of Magnesia Liq) 30 ml Q12H PRN PO 04/18/17 11:15 (Senokot) 17.2 mg Q12H PRN PO 04/18/17 11:15 (Dulcolax Supp) 10 mg DAILY PRN RECTAL 04/18/17 11:15 (Lactulose Liq) 30 ml DAILY PRN PO 04/18/17 11:15 (Aspirin Chew) 81 mg DAILY CHEW 04/18/17 12:00 04/23/17 08:53 (CeleXA) 10 mg DAILY PO 04/18/17 12:00 04/23/17 08:52 (Depakote Sprinkles) 125 mg BID PO 04/18/17 12:00 04/23/17 08:53 (Toprol Xl) 12.5 mg DAILY PO 04/18/17 12:00 04/23/17 08:52 (Pill Splitter) 1 ea UNSCH PRN OTHER 04/18/17 11:45 (Pepcid) 10 mg BID PO 04/19/17 21:00 04/23/17 08:53 Ertapenem 1000 mg/ Sodium Chloride 100 ml @ 200 mls/hr Q24H IV 04/20/17 15:00 05/04/17 14:59 04/22/17 15:56 (Haldol Inj) 2 mg Q4H PRN IM 04/20/17 17:30 04/21/17 04:52 (Ativan Inj) 1 mg Q2H PRN IV PUSH 04/20/17 17:30 (Apresoline) 25 mg Q8H PO 04/21/17 18:00 04/23/17 08:54 (Lovenox Inj) 40 mg Q24H SQ 04/22/17 12:00 04/22/17 12:18 (SEROquel) 12.5 mg HS PO 04/22/17 21:00 (Prinivil) 20 mg DAILY PO 04/23/17 09:00 04/23/17 08:52 Miscellaneous Information No Heparin, Warfarin, Aspir... UNSCH PRN XX 04/23/17 14:00 04/24/17 13:59 Exam I&O / VS Vital Signs Date Time Temp Pulse Resp B/P (MAP) Pulse Ox O2 Delivery O2 Flow Rate FiO2 04/23/17 14:21 98.5 84 17 172/73 (106) 99 04/23/17 11:19 97.5 83 16 184/87 (119) 98 04/23/17 04:00 98.0 83 20 160/79 (106) 98 04/23/17 00:00 97.6 79 18 188/83 (118) 97 04/22/17 22:40 94 04/22/17 20:00 97.4 81 18 173/79 (110) 98 04/22/17 16:55 98.3 78 18 185/82 (116) 97 Exam Comments alerts, expressive >>comprehensive aphasia. appears to try to follow 1 step motor. mild left gaze preference, reduced rah nlf, rt hemiparesis 3/5, left side 4/5, extensor planter rah, no clonus Review/Management Diagnosis/Plan: (1) Acute ischemic left MCA stroke ICD Codes: I63.512 - Cerebral infarction due to unspecified occlusion or stenosis of left middle cerebral artery Status: Acute Plan: suspect acute left mca stroke. other possibility is rt sided sz activity with post-ictal state recs iv tpa given to pt as myself and medical feel it could benefit the pt. medical d /w pt's spouse 6% chance of ich/ she appears to be doing better post-tpa order set eeg mri/mra brain scd's bp <180/100 d/w rn (2) Chronic ischemic right MCA stroke ICD Codes: I69.30 - Unspecified sequelae of cerebral infarction Status: Chronic (3) Alzheimer's dementia ICD Codes: G30.9 - Alzheimer's disease, unspecified Status: Chronic (4) Depression ICD Codes: F32.9 - Major depressive disorder, single episode, unspecified Status: Chronic Problem Qualifiers (1) Alzheimer's dementia: Calvin Mendoza MD Apr 23, 2017 15:24
--- NOTE | 2017-04-23 15:45 | RADRPT ---
EXAM DATE/TIME: 04/23/2017 14:23 [facility] COMPARISON: No previous studies available for comparison. INDICATIONS : Left sided weakness. MEDICAL HISTORY : Hypertension. dementia SURGICAL HISTORY : craniotomy ENCOUNTER: Initial ACUITY: 1 day PAIN SCORE: 0/10 LOCATION: cranial Please note a normal MRA of the brain does not entirely exclude the possibility of a small aneurysm, nor the possibility of distal intracranial vessel disease. TECHNIQUE: 3D time of flight MRA was performed. Source images, multiplanar STS MIP, and 3D volume MIP reconstru ctions were reviewed. FINDINGS: There is excellent visualization of the major intracranial arteries out to the second-order branch ve ssels. There is no evidence for aneurysm, vessel truncation, and no evidence for vascular malformati on. The patient's left posterior cerebral artery is absent. There is a patent left posterior communicatin g artery with a focal stenosis at its origin. The left anterior cerebral artery is absent. CONCLUSION: There is a short segment stenosis of the origin of the left posterior communicating communicating art kymberly which supplies almost all of the left posterior cerebral circulation. Xander Balderrama MD on April 23, 2017 at 15:39 Board Certified Radiologist. This report was verified electronically.
[2017-04-23] MEDS ORDERED: niCARdipine INJ 25 MG in SODIUM CHLOR 0.9% 250 ML INJ 240 ML IV PRN (16:00)
[2017-04-23] MEDS ORDERED: FOSPHENYTOIN INJ 1,000 MGPE in SODIUM CHLORIDE 0.9% INJ 50 ML IV ONE (16:00)
[2017-04-23 16:02] LABS: AUTOMATED NEUTROPHIL # 14.2 TH/MM3 (1.8-7.7); BASOPHIL % 0.2 % (0.0-2.0); HEMATOCRIT 36.1 % (35.0-46.0); HEMO FLAGS DIFF FINAL; LYMPHOCYTE # 0.6 TH/MM3 (1.0-4.8); MEAN CELL VOLUME 100.3 FL (80.0-100.0); MEAN CORPUSCULAR HEMOGLOBIN 33.8 PG (27.0-34.0); MEAN CORPUSCULAR HGB CONC 33.7 % (32.0-36.0); MONO % 5.5 % (0.0-8.0); NEUT % 90.3 % (16.0-70.0); PLATELET COUNT 335 TH/MM3 (150-450); RED BLOOD COUNT 3.59 MIL/MM3 (4.00-5.30); RED CELL DISTRIBUTION WIDTH 13.2 % (11.6-17.2); WHITE BLOOD COUNT 15.7 TH/MM3 (4.0-11.0)
[2017-04-23 16:16] LABS: PROTHROMBIN TIME - PATIENT 10.6 SEC (9.8-11.6)
[2017-04-23 16:17] LABS: APTT (PATIENT) 25.2 SEC (24.3-30.1)
[2017-04-23] MEDS: ERTAPENEM INJ 1,000 MG in SODIUM CHLORIDE 0.9% INJ 100 ML IV SCH (16:21)
[2017-04-23 17:13] LABS: HDL CHOLESTEROL 49.9 MG/DL (40.0-60.0)
[2017-04-23] MEDS: QUEtiapine FUMARATE 25 MG TAB PO SCH (21:00)
[2017-04-23] MEDS: FOSPHENYTOIN SODIUM 100 MG PE/2 ML VIAL IV SCH (21:16)
[2017-04-23 21:19] LABS: BACTERIA, URINE RARE /hpf; BLOOD, URINE NEG (NEG); GLUCOSE,URINE NEG (NEG); KETONE, URINE 10 mg/dL (NEG); MUCUS URINE FEW /lpf (OCC); NITRITE,URINE NEG (NEG); PH, URINE 5.5 (5.0-8.5); SQUAMOUS EPITHELIAL CELL URINE 8 /hpf (0-5); TRANSITIONAL EPI CELLS, URINE 1 /hpf; URINE COLOR YELLOW (YELLW/STRAW)
[2017-04-23 21:21] LABS: COMMENT (UR) CATH-CULTURE IND; CULTURE IF INDICATED CATH CULTURE IND
--- NOTE | 2017-04-23 23:52 | MG ---
cc: FLETCHER HENSLEY MD LEASE REVISE. BLANKS DUE TO INAUDIBLE QUALITY OF DICTATION. Lab No: [id number] Date: 04/23/17 Age: 82 Sex: F Race: DATE OF 1935 HISTORY An 82-year-old female history of acute aphasia, mental status changes, weakness, history of previous stroke. DESCRIPTION OF RECORD A lot of myogenic artifact particularly in the right frontotemporal region, 5-7 Hz activity in the left side. artifact. Right posterior hemisphere showing some slowing, however, artifact quite persistent throughout the recording. Limited driving with photic stimulation. Single lead EKG shows sinus rhythm. INTERPRETATION Moderate amount of artifact in the right side with minimal slowing. Clinical correlation. Fletcher Hensley MD MG/EO /9:58 PM /11:42 PM
[2017-04-24] VITALS (12 sets, daily range): BP systolic 124–156; BP diastolic 60–83; PULSE 59–83; RESP 21–37; TEMP 98.9–99.4; O2SAT 96–98
[2017-04-24] MEDS: hydrALAZINE HCL 25 MG TAB PO SCH (01:34)
--- NOTE | 2017-04-24 07:40 | HHI.PR ---
Subjective Remarks patient awake but minimall verbal output- most is stated her name but easily awakens, she did stated her name "Minerva" after repeated prodding and encouragement and nagging- voice soft move all extremities spontaneously + resistance to full extension yawning a lot Overnight- no seizure reported Objective Vitals Vital Signs Date Time Temp Pulse Resp B/P (MAP) Pulse Ox O2 Delivery O2 Flow Rate FiO2 04/24/17 06:00 80 04/24/17 04:00 99.4 79 21 144/65 (91) 96 04/24/17 04:00 79 04/24/17 02:00 83 04/24/17 00:00 99.1 72 21 132/83 (99) 97 04/24/17 00:00 72 04/23/17 22:00 68 04/23/17 20:00 99.2 80 21 162/75 (104) 93 04/23/17 20:00 80 04/23/17 15:00 98.6 80 21 147/67 (93) 100 04/23/17 15:00 100 Nasal Cannula 2.00 04/23/17 15:00 80 04/23/17 14:21 98.5 84 17 172/73 (106) 99 04/23/17 11:19 97.5 83 16 184/87 (119) 98 I/O 04/23/17 04/23/17 04/23/17 04/24/17 04/24/17 04/24/17 07:00 15:00 23:00 07:00 15:00 23:00 Intake Total 150 ml Output Total 300 ml Balance 150 ml -300 ml Intake Oral 0 ml IV Total 150 ml Output Urine Total 300 ml # Voids 6 2 Result Diagram: 04/23/17 1539 04/23/17 0633 Imaging Last Impressions Head Magnetic Resonance Angiography 04/23/17 0000 Signed Impressions: Service Date/Time: Sunday, April 23, 2017 14:23 - CONCLUSION: There is a short segment stenosis of the origin of the left posterior communicating communicating artery which supplies almost all of the left posterior cerebral circulation. Xander Balderrama MD Head CT 04/23/17 0000 Signed Impressions: Service Date/Time: Sunday, April 23, 2017 13:13 - CONCLUSION: Stable examination. Large area of encephalomalacia involving the right temporal and occipital lobes. No evidence of acute hemorrhage or edema. Xander Balderrama MD Brain MRI 04/23/17 0000 Signed Impressions: Service Date/Time: Sunday, April 23, 2017 14:23 - CONCLUSION: 1. No acute intracranial abnormality. 2. Encephalomalacia right occipital lobe. 3. Atrophy and chronic small vessel ischemic change. 4. Fluid signal within the mastoid air cells on the left. Clinical evaluation for any signs of acute mastoiditis suggested. Roni Fox Jr., MD Chest X-Ray 04/18/17 0000 Signed Impressions: Service Date/Time: Tuesday, April 18, 2017 09:29 - CONCLUSION: 1. No acute cardiopulmonary findings. Galo Elizalde MD Abdomen/Pelvis CT 04/18/17 0000 Signed Impressions: Service Date/Time: Tuesday, April 18, 2017 08:09 - CONCLUSION: 1. Diverticulosis without diverticulitis. 2. Status post cholecystectomy. 3. Small hiatal hernia. Abram Johnson MD Objective Remarks drowsy, able to state her naeme in a soft voice anicteric, pupils equal- able to make eye contact no nuchal rigidity lungs- no rales regular rhythm abdomen soft, + bowel sounds extremities no edema, LUE- PICC in place moves all extremities- spontaneously- generalized weakness- no focal weakness + resistance to all extension- strength seems equal Procedures NONE Urinary Catheter: Yes Assessment to: Continue Juarez insert reason: Prolonged Immobilization Date of Insertion: Apr 23, 2017 A/P Problem List: (1) GERD (gastroesophageal reflux disease) ICD Code: K21.9 - Gastro-esophageal reflux disease without esophagitis (2) Altered mental status ICD Code: R41.82 - Altered mental status, unspecified Status: Acute (3) Sepsis ICD Code: A41.9 - Sepsis, unspecified organism Status: Acute (4) Alzheimer's dementia ICD Code: G30.9 - Alzheimer's disease, unspecified Status: Chronic (5) Depression ICD Code: F32.9 - Major depressive disorder, single episode, unspecified Status: Chronic (6) Hypertension ICD Code: I10 - Essential (primary) hypertension (7) Anxiety ICD Code: F41.9 - Anxiety disorder, unspecified (8) Vomiting ICD Code: R11.10 - Vomiting, unspecified Status: Resolved (9) UTI (urinary tract infection) ICD Code: N39.0 - Urinary tract infection, site not specified Status: Acute Assessment and Plan This is a 82-year-old female residing in SNF who presented with nausea vomiting Acute changein MS - S/P stroke alert vs SEzisure S/P TPA MS gradually improving, spontaenously moving Neurology ff along with us started on IV Cerebryx consult Speech therapy for swallowing and cognitive evaluation NPO. start D5NS Sepsis secondary to UTI ESBL - on ertapenem. - Repeat Blood cx negative so far. ID ff - Continue Invanz X 14 days total. till 05/04 Hypokalemia- Hypomagnesemia- improved recheck labs today start D5NS + KCL Dementia Seroquel dose down to 12.5 mg hs- will DC for now HYpertension Lisinorpil to 20 mg dialy,. continue hydralazine 25 mg po tid DNR. TEDs/SCDs Problem Qualifiers (1) Sepsis: Qualified Codes: A41.9 - Sepsis, unspecified organism (2) Alzheimer's dementia: (3) Hypertension: Qualified Codes: I10 - Essential (primary) hypertension (4) UTI (urinary tract infection): Qualified Codes: N30.00 - Acute cystitis without hematuria Jemma Ching MD Apr 24, 2017 07:40
[2017-04-24 08:28] LABS: HEMATOCRIT 32.1 % (35.0-46.0); MEAN CELL VOLUME 99.3 FL (80.0-100.0); MEAN CORPUSCULAR HEMOGLOBIN 34.2 PG (27.0-34.0); MEAN CORPUSCULAR HGB CONC 34.5 % (32.0-36.0); PLATELET COUNT 322 TH/MM3 (150-450); RED BLOOD COUNT 3.23 MIL/MM3 (4.00-5.30); RED CELL DISTRIBUTION WIDTH 13.4 % (11.6-17.2); REVIEW FLAG FINAL; WHITE BLOOD COUNT 7.7 TH/MM3 (4.0-11.0)
[2017-04-24 08:44] LABS: BICARBONATE 26.4 MEQ/L (21.0-32.0); POTASSIUM 3.7 MEQ/L (3.5-5.1)
--- NOTE | 2017-04-24 08:56 | HHI.PR ---
Review/Management Diagnosis/Plan: (1) Acute ischemic left MCA stroke ICD Codes: I63.512 - Cerebral infarction due to unspecified occlusion or stenosis of left middle cerebral artery Status: Acute Plan: mri brain no acute infarct; possible tia resolved vs sz poor quality eeg s/p tpa recs repeat ct brain 24 hrs post tpa repeat eeg continue iv cerebryx then change to po dilantin follow exam ok for floor in am p.t./s.t. (2) Chronic ischemic right MCA stroke ICD Codes: I69.30 - Unspecified sequelae of cerebral infarction Status: Chronic (3) Alzheimer's dementia ICD Codes: G30.9 - Alzheimer's disease, unspecified Status: Chronic (4) Depression ICD Codes: F32.9 - Major depressive disorder, single episode, unspecified Status: Chronic Subjective Subjective Comments No acute events reported Active Medications Current Medications Medications (Trade) Dose Ordered Sig/Pari Route Start Time Stop Time Status Last Admin (D50w (Vial) Inj) 50 ml UNSCH PRN IV PUSH 04/18/17 11:15 (Glucagon Inj) 1 mg UNSCH PRN OTHER 04/18/17 11:15 (NS Flush) 2 ml UNSCH PRN IV FLUSH 04/18/17 11:15 (NS Flush) 2 ml BID IV FLUSH 04/18/17 21:00 04/23/17 21:14 (Tylenol) 650 mg Q4H PRN PO 04/18/17 11:15 04/20/17 15:04 (Zofran Inj) 4 mg Q6H PRN IVP 04/18/17 11:15 (Compazine Supp) 25 mg Q12H PRN RECTAL 04/18/17 11:15 (Tylenol) 650 mg Q6H PRN PO 04/18/17 11:15 04/23/17 05:31 ([place] 5-325 Mg) 1 tab Q4H PRN PO 04/18/17 11:15 ([place] 10-325 Mg) 1 tab Q4H PRN PO 04/18/17 11:15 (Morphine Inj) 2 mg Q3H PRN IV PUSH 04/18/17 11:15 (Morphine Inj) 4 mg Q3H PRN IV PUSH 04/18/17 11:15 (Narcan Inj) 0.4 mg UNSCH PRN IV PUSH 04/18/17 11:15 (Genevieve-Colace) 1 tab BID PO 04/18/17 21:00 04/23/17 08:53 (Milk Of Magnesia Liq) 30 ml Q12H PRN PO 04/18/17 11:15 (Senokot) 17.2 mg Q12H PRN PO 04/18/17 11:15 (Dulcolax Supp) 10 mg DAILY PRN RECTAL 04/18/17 11:15 (Lactulose Liq) 30 ml DAILY PRN PO 04/18/17 11:15 (CeleXA) 10 mg DAILY PO 04/18/17 12:00 04/23/17 08:52 (Depakote Sprinkles) 125 mg BID PO 04/18/17 12:00 04/23/17 08:53 (Toprol Xl) 12.5 mg DAILY PO 04/18/17 12:00 Future Hold 04/23/17 08:52 (Pill Splitter) 1 ea UNSCH PRN OTHER 04/18/17 11:45 (Pepcid) 10 mg BID PO 04/19/17 21:00 Future Hold 04/23/17 08:53 Ertapenem 1000 mg/ Sodium Chloride 100 ml @ 200 mls/hr Q24H IV 04/20/17 15:00 05/04/17 14:59 04/23/17 16:21 (Haldol Inj) 2 mg Q4H PRN IM 04/20/17 17:30 04/21/17 04:52 (Ativan Inj) 1 mg Q2H PRN IV PUSH 04/20/17 17:30 (Apresoline) 25 mg Q8H PO 04/21/17 18:00 Future Hold 04/23/17 08:54 (SEROquel) 12.5 mg HS PO 04/22/17 21:00 (Prinivil) 20 mg DAILY PO 04/23/17 09:00 Future Hold 04/23/17 08:52 Miscellaneous Information No Heparin, Warfarin, Aspir... UNSCH PRN XX 04/23/17 14:00 04/24/17 13:59 (Cerebyx Inj) 200 mgpe Q12HR IV 04/23/17 21:00 04/23/17 21:16 Nicardipine HCl 25 mg/Sodium Chloride 250 ml @ 0 mls/hr TITRATE PRN IV 04/23/17 16:00 Potassium Chloride/Dextrose/ Sod Cl 1,000 ml @ 60 mls/hr [id number] IV 04/24/17 08:00 (Protonix Inj) 40 mg DAILY IV PUSH 04/24/17 09:00 Allergies Allergies Coded Allergies atorvastatin (Unverified Allergy, Unknown, 01/14/17) clotrimazole (Unverified Allergy, Unknown, 01/14/17) diltiazem (Unverified Allergy, Unknown, 01/14/17) iodine (Unverified Allergy, Unknown, 01/14/17) meperidine (Unverified Allergy, Unknown, 01/14/17) nifedipine (Unverified Allergy, Unknown, 01/14/17) potassium iodide (Unverified Allergy, Unknown, 01/14/17) povidone-iodine (Unverified Allergy, Unknown, 01/14/17) propranolol (Unverified Allergy, Unknown, 01/14/17) sertraline (Unverified Allergy, Unknown, 01/14/17) sodium iodide (Unverified Allergy, Unknown, 01/14/17) sodium iodide (Unverified Allergy, Unknown, 01/14/17) Review of Systems All other ROS: Unable to obtain Exam I&O / VS Vital Signs Date Time Temp Pulse Resp B/P (MAP) Pulse Ox O2 Delivery O2 Flow Rate FiO2 04/24/17 06:00 80 04/24/17 04:00 99.4 79 21 144/65 (91) 96 04/24/17 04:00 79 04/24/17 02:00 83 04/24/17 00:00 99.1 72 21 132/83 (99) 97 04/24/17 00:00 72 04/23/17 22:00 68 04/23/17 20:00 99.2 80 21 162/75 (104) 93 04/23/17 20:00 80 04/23/17 15:00 98.6 80 21 147/67 (93) 100 04/23/17 15:00 100 Nasal Cannula 2.00 04/23/17 15:00 80 04/23/17 14:21 98.5 84 17 172/73 (106) 99 04/23/17 11:19 97.5 83 16 184/87 (119) 98 Exam Comments drowsy, chewing movements, tries to alert but falls back asleep, not following, ou 3-2mm, face reduced left nlf, christianson to gravity, planterflexor Objective Micro and Labs Laboratory Tests Test 04/23/17 13:15 04/23/17 15:39 04/23/17 17:45 04/24/17 07:45 Bedside Hemoglobin 11.6 Bedside Hematocrit 34.0 Bedside Sodium 141 Bedside Potassium 3.2 Bedside Chloride 114 Bedside Blood Urea Nitrogen 14 Bedside Creatinine 0.7 Bedside Glucose 143 Total Creatine Kinase 149 Troponin I LESS THAN 0.02 Triglycerides Level 147 Cholesterol Level 150 LDL Cholesterol 71 HDL Cholesterol 49.9 Cholesterol/HDL Ratio 3.00 Vitamin B12 Level 374 White Blood Count 15.7 7.7 Red Blood Count 3.59 3.23 Hemoglobin 12.2 11.1 Hematocrit 36.1 32.1 Mean Corpuscular Volume 100.3 99.3 Mean Corpuscular Hemoglobin 33.8 34.2 Mean Corpuscular Hemoglobin Concent 33.7 34.5 Red Cell Distribution Width 13.2 13.4 Platelet Count 335 322 Mean Platelet Volume 8.6 8.4 Neutrophils (%) (Auto) 90.3 Lymphocytes (%) (Auto) 4.0 Monocytes (%) (Auto) 5.5 Eosinophils (%) (Auto) 0.0 Basophils (%) (Auto) 0.2 Neutrophils # (Auto) 14.2 Lymphocytes # (Auto) 0.6 Monocytes # (Auto) 0.9 Eosinophils # (Auto) 0.0 Basophils # (Auto) 0.0 CBC Comment DIFF FINAL Differential Comment Erythrocyte Sedimentation Rate 38 Prothrombin Time 10.6 Prothromb Time International Ratio 1.0 Activated Partial Thromboplast Time 25.2 Fibrinogen 383 Urine Color YELLOW Urine Turbidity HAZY Urine pH 5.5 Urine Specific [place] 1.016 Urine Protein 30 Urine Glucose (UA) NEG Urine Ketones 10 Urine Occult Blood NEG Urine Nitrite NEG Urine Bilirubin NEG Urine Urobilinogen LESS THAN 2.0 Urine Leukocyte Esterase NEG Urine RBC 2 Urine WBC 3 Urine Squamous Epithelial Cells 8 Urine Transitional Epithelial Cells 1 Urine Amorphous Sediment RARE Urine Bacteria RARE Urine Mucus FEW Microscopic Urinalysis Comment CATH-CULTURE IND Blood Urea Nitrogen 19 Creatinine 0.74 Random Glucose 96 Calcium Level 8.5 Sodium Level 146 Potassium Level 3.7 Chloride Level 111 Carbon Dioxide Level 26.4 Anion Gap 9 Estimat Glomerular Filtration Rate 75 Magnesium Level 1.9 Date/Time Source Procedure Growth Status 04/20/17 15:25 Blood Peripheral Aerobic Blood Culture - Preliminary NO GROWTH IN 3 DAYS Resulted 04/20/17 15:25 Blood Peripheral Anaerobic Blood Culture - Preliminary NO GROWTH IN 3 DAYS Resulted 04/23/17 17:45 Urine Catheterized Urine Urine Culture Pending Received Problem Qualifiers (1) Alzheimer's dementia: Calvin Mendoza MD Apr 24, 2017 08:56
[2017-04-24] MEDS: CITALOPRAM HYDROBROMIDE 20 MG TAB PO SCH (09:00)
[2017-04-24] MEDS: DOCUSATE SODIUM 50 MG/SENNA 8.6 MG TAB PO SCH ×2 (09:00→21:00)
[2017-04-24] MEDS: DIVALPROEX SODIUM SPRINKLES 125 MG CAP PO SCH ×2 (09:00→21:00)
[2017-04-24] MEDS: FOSPHENYTOIN SODIUM 100 MG PE/2 ML VIAL IV SCH ×2 (09:50→21:07)
[2017-04-24] MEDS: PANTOPRAZOLE SODIUM 40 MG VIAL IV PUSH SCH (09:50)
[2017-04-24] MEDS: D5-NS + KCL 20 MEQ INJ 1,000 ML IV SCH (09:51)
[2017-04-24] MEDS: SODIUM CHLORIDE 0.9% FLUSH 10 ML FLUSH IV FLUSH SCH ×2 (09:51→21:07)
--- NOTE | 2017-04-24 10:47 | EKG ---
Date Performed: 04/23/2017 Time Performed: 13:04:45 PTAGE: 82 years EKG: Sinus rhythm WITH OCCASIONAL SUPRAVENTRICULAR PREMATURE COMPLEXES MARKED LEFT AXIS DEVIATION NONSPECIFIC T-WAVE A BNORMALITY ABNORMAL ECG INTERPRETATION BASED ON A DEFAULT AGE OF 38 YEARS PREVIOUS TRACING : 04/09/2017 11.02 DOCTOR: Beau Bazan Interpretating Date/Time 04/24/2017 10:45:50
--- NOTE | 2017-04-24 15:06 | RADRPT ---
EXAM DATE/TIME: 04/24/2017 14:40 [facility] COMPARISON: CT BRAIN W/O CONTRAST, April 23, 2017, 13:13. INDICATIONS : Post TPa RADIATION DOSE: 36.90 CTDIvol (mGy) MEDICAL HISTORY : Dementia. Cardiovascular disease Hypertension. SURGICAL HISTORY : None. ENCOUNTER: Subsequent ACUITY: 1 day PAIN SCALE: Non-responsive LOCATION: cranial TECHNIQUE: Multiple contiguous axial images were obtained of the head. Using automated exposure control and adj ustment of the mA and/or kV according to patient size, radiation dose was kept as low as reasonably a chievable to obtain optimal diagnostic quality images. DICOM format image data is available electro nically for review and comparison. FINDINGS: Comparison is April 23. Stable encephalomalacia in the right temporal and occipital lobes with pre vious right craniotomy. No acute hemorrhage, shift. No hydrocephalus. No recent infarct identified. P aranasal sinuses are clear. CONCLUSION: 1. No acute findings. Stable encephalomalacia right temporal and occipital lobes. Sudhir Hartman MD on April 24, 2017 at 15:02 Board Certified Radiologist. This report was verified electronically.
[2017-04-24] MEDS: ERTAPENEM INJ 1,000 MG in SODIUM CHLORIDE 0.9% INJ 100 ML IV SCH (15:25)
[2017-04-24] MEDS: QUEtiapine FUMARATE 25 MG TAB PO SCH (21:00)
[2017-04-25] VITALS (18 sets, daily range): BP systolic 116–197; BP diastolic 57–84; PULSE 58–76; RESP 18–32; TEMP 97.7–99.3; O2SAT 95–100
[2017-04-25] MEDS: D5-NS + KCL 20 MEQ INJ 1,000 ML IV SCH (00:52)
[2017-04-25] MEDS: DIVALPROEX SODIUM SPRINKLES 125 MG CAP PO SCH ×2 (09:00→21:54)
[2017-04-25] MEDS: FOSPHENYTOIN SODIUM 100 MG PE/2 ML VIAL IV SCH ×3 (09:00→21:55)
[2017-04-25] MEDS: DOCUSATE SODIUM 50 MG/SENNA 8.6 MG TAB PO SCH ×2 (09:00→21:54)
[2017-04-25] MEDS: CITALOPRAM HYDROBROMIDE 20 MG TAB PO SCH (09:00)
[2017-04-25] MEDS: PANTOPRAZOLE SODIUM 40 MG VIAL IV PUSH SCH (09:15)
[2017-04-25] MEDS: SODIUM CHLORIDE 0.9% FLUSH 10 ML FLUSH IV FLUSH SCH ×2 (09:18→21:00)
--- NOTE | 2017-04-25 13:10 | HHI.PR ---
Review/Management Diagnosis CVA---resolved after iv tpa seizure--on vpa and dph Plan start aspirin 325 mg daily check carotid US and echocardiogram check valproic acid level. reduce dose of cerebyx due to level of 21 for phenytoin and recheck level Friday Diagnosis/Plan: (1) Acute ischemic left MCA stroke ICD Codes: I63.512 - Cerebral infarction due to unspecified occlusion or stenosis of left middle cerebral artery Status: Acute Plan: mri brain no acute infarct; possible tia resolved vs sz poor quality eeg s/p tpa recs repeat ct brain 24 hrs post tpa repeat eeg continue iv cerebryx then change to po dilantin follow exam ok for floor in am p.t./s.t. (2) Chronic ischemic right MCA stroke ICD Codes: I69.30 - Unspecified sequelae of cerebral infarction Status: Chronic (3) Alzheimer's dementia ICD Codes: G30.9 - Alzheimer's disease, unspecified Status: Chronic (4) Depression ICD Codes: F32.9 - Major depressive disorder, single episode, unspecified Status: Chronic Subjective Subjective Comments No acute events reported Active Medications Current Medications Medications (Trade) Dose Ordered Sig/Pari Route Start Time Stop Time Status Last Admin (D50w (Vial) Inj) 50 ml UNSCH PRN IV PUSH 04/18/17 11:15 (Glucagon Inj) 1 mg UNSCH PRN OTHER 04/18/17 11:15 (NS Flush) 2 ml UNSCH PRN IV FLUSH 04/18/17 11:15 (NS Flush) 2 ml BID IV FLUSH 04/18/17 21:00 04/25/17 09:18 (Tylenol) 650 mg Q4H PRN PO 04/18/17 11:15 04/20/17 15:04 (Zofran Inj) 4 mg Q6H PRN IVP 04/18/17 11:15 (Compazine Supp) 25 mg Q12H PRN RECTAL 04/18/17 11:15 (Tylenol) 650 mg Q6H PRN PO 04/18/17 11:15 04/23/17 05:31 ([place] 5-325 Mg) 1 tab Q4H PRN PO 04/18/17 11:15 ([place] 10-325 Mg) 1 tab Q4H PRN PO 04/18/17 11:15 (Morphine Inj) 2 mg Q3H PRN IV PUSH 04/18/17 11:15 (Morphine Inj) 4 mg Q3H PRN IV PUSH 04/18/17 11:15 (Narcan Inj) 0.4 mg UNSCH PRN IV PUSH 04/18/17 11:15 (Genevieve-Colace) 1 tab BID PO 04/18/17 21:00 04/25/17 09:00 (Milk Of Magnesia Liq) 30 ml Q12H PRN PO 04/18/17 11:15 (Senokot) 17.2 mg Q12H PRN PO 04/18/17 11:15 (Dulcolax Supp) 10 mg DAILY PRN RECTAL 04/18/17 11:15 (Lactulose Liq) 30 ml DAILY PRN PO 04/18/17 11:15 (CeleXA) 10 mg DAILY PO 04/18/17 12:00 04/25/17 09:00 (Depakote Sprinkles) 125 mg BID PO 04/18/17 12:00 04/23/17 08:53 (Toprol Xl) 12.5 mg DAILY PO 04/18/17 12:00 Future Hold 04/23/17 08:52 (Pill Splitter) 1 ea UNSCH PRN OTHER 04/18/17 11:45 (Pepcid) 10 mg BID PO 04/19/17 21:00 Future Hold 04/23/17 08:53 Ertapenem 1000 mg/ Sodium Chloride 100 ml @ 200 mls/hr Q24H IV 04/20/17 15:00 05/04/17 14:59 04/24/17 15:25 (Haldol Inj) 2 mg Q4H PRN IM 04/20/17 17:30 04/21/17 04:52 (Ativan Inj) 1 mg Q2H PRN IV PUSH 04/20/17 17:30 (Apresoline) 25 mg Q8H PO 04/21/17 18:00 Future Hold 04/23/17 08:54 (SEROquel) 12.5 mg HS PO 04/22/17 21:00 (Prinivil) 20 mg DAILY PO 04/23/17 09:00 Future Hold 04/23/17 08:52 Nicardipine HCl 25 mg/Sodium Chloride 250 ml @ 0 mls/hr TITRATE PRN IV 04/23/17 16:00 Potassium Chloride/Dextrose/ Sod Cl 1,000 ml @ 60 mls/hr [id number] IV 04/24/17 08:00 04/25/17 00:52 (Protonix Inj) 40 mg DAILY IV PUSH 04/24/17 09:00 04/25/17 09:15 (Cerebyx Inj) 100 mgpe Q8HR IV 04/25/17 14:00 UNV Allergies Allergies Coded Allergies atorvastatin (Unverified Allergy, Unknown, 01/14/17) clotrimazole (Unverified Allergy, Unknown, 01/14/17) diltiazem (Unverified Allergy, Unknown, 01/14/17) iodine (Unverified Allergy, Unknown, 01/14/17) meperidine (Unverified Allergy, Unknown, 01/14/17) nifedipine (Unverified Allergy, Unknown, 01/14/17) potassium iodide (Unverified Allergy, Unknown, 01/14/17) povidone-iodine (Unverified Allergy, Unknown, 01/14/17) propranolol (Unverified Allergy, Unknown, 01/14/17) sertraline (Unverified Allergy, Unknown, 01/14/17) sodium iodide (Unverified Allergy, Unknown, 01/14/17) sodium iodide (Unverified Allergy, Unknown, 01/14/17) Review of Systems All other ROS: Unable to obtain Exam I&O / VS Vital Signs Date Time Temp Pulse Resp B/P (MAP) Pulse Ox O2 Delivery O2 Flow Rate FiO2 04/25/17 06:00 62 04/25/17 04:00 71 04/25/17 04:00 99.3 71 28 137/71 (93) 96 04/25/17 02:00 69 04/25/17 00:00 98.9 67 20 121/76 (91) 98 04/25/17 00:00 67 04/24/17 22:00 70 04/24/17 20:00 72 04/24/17 20:00 99.0 72 26 142/80 (100) 98 04/24/17 18:00 72 04/24/17 16:00 99.0 04/24/17 16:00 99.0 60 21 149/66 (93) 04/24/17 16:00 60 04/24/17 14:00 67 Exam Comments lethargic but janine to arouse. Follow commands CN 2-12 normal MOTOR 5/5 BUE and BLE Objective Radiology Results CT brain post TPA---encephalomalacia right temporal and occipital lobe with no hemorrhage. Micro and Labs Laboratory Tests Test 04/24/17 15:47 04/25/17 07:27 Phenytoin (Dilantin) Level 17.6 21.0 Date/Time Source Procedure Growth Status 04/20/17 15:25 Blood Peripheral Aerobic Blood Culture - Final NO GROWTH IN 5 DAYS Complete 04/20/17 15:25 Blood Peripheral Anaerobic Blood Culture - Final NO GROWTH IN 5 DAYS Complete 04/23/17 17:45 Urine Catheterized Urine Urine Culture - Final NO GROWTH IN 48 HOURS. Complete Problem Qualifiers (1) Alzheimer's dementia: Jad Wilkinson PhD Apr 25, 2017 13:10
[2017-04-25] MEDS: ASPIRIN 325 MG TAB PO SCH (13:15)
--- NOTE | 2017-04-25 13:45 | HHI.PR ---
Subjective Remarks patient sleeping but woke up easily aphasic + reistance to all movements and exams Objective Vitals Vital Signs Date Time Temp Pulse Resp B/P (MAP) Pulse Ox O2 Delivery O2 Flow Rate FiO2 04/25/17 06:00 62 04/25/17 04:00 71 04/25/17 04:00 99.3 71 28 137/71 (93) 96 04/25/17 02:00 69 04/25/17 00:00 98.9 67 20 121/76 (91) 98 04/25/17 00:00 67 04/24/17 22:00 70 04/24/17 20:00 72 04/24/17 20:00 99.0 72 26 142/80 (100) 98 04/24/17 18:00 72 04/24/17 16:00 99.0 04/24/17 16:00 99.0 60 21 149/66 (93) 04/24/17 16:00 60 04/24/17 14:00 67 I/O 04/24/17 04/24/17 04/24/17 04/25/17 04/25/17 04/25/17 07:00 15:00 23:00 07:00 15:00 23:00 Intake Total 602 ml 498 ml Output Total 300 ml 175 ml 350 ml Balance -300 ml 427 ml 148 ml IV Total 602 ml 498 ml Output Urine Total 300 ml 175 ml 350 ml Result Diagram: 04/24/17 0745 04/24/17 0745 Imaging Last Impressions Head CT 04/24/17 1400 Signed Impressions: Service Date/Time: April 14:40 - CONCLUSION: 1. No acute findings. Stable encephalomalacia right temporal and occipital lobes. Sudhir Hartman MD Head Magnetic Resonance Angiography 04/23/17 0000 Signed Impressions: Service Date/Time: Sunday, April 23, 2017 14:23 - CONCLUSION: There is a short segment stenosis of the origin of the left posterior communicating communicating artery which supplies almost all of the left posterior cerebral circulation. Xander Balderrama MD Brain MRI 04/23/17 0000 Signed Impressions: Service Date/Time: Sunday, April 23, 2017 14:23 - CONCLUSION: 1. No acute intracranial abnormality. 2. Encephalomalacia right occipital lobe. 3. Atrophy and chronic small vessel ischemic change. 4. Fluid signal within the mastoid air cells on the left. Clinical evaluation for any signs of acute mastoiditis suggested. Roni Fox Jr., MD Chest X-Ray 04/18/17 0000 Signed Impressions: Service Date/Time: Tuesday, April 18, 2017 09:29 - CONCLUSION: 1. No acute cardiopulmonary findings. Galo Elizalde MD Abdomen/Pelvis CT 04/18/17 0000 Signed Impressions: Service Date/Time: Tuesday, April 18, 2017 08:09 - CONCLUSION: 1. Diverticulosis without diverticulitis. 2. Status post cholecystectomy. 3. Small hiatal hernia. Abram Johnson MD Objective Remarks awke and swallowed well - pills anicteric, pupils equal- able to make eye contact no nuchal rigidity lungs- no rales regular rhythm abdomen soft, + bowel sounds extremities no edema, LUE- PICC in place moves all extremities- spontaneously- generalized weakness- no focal weakness + resistance to all extension- strength seems equal Procedures NONE Urinary Catheter: Yes Assessment to: Continue [place] insert reason: Prolonged Immobilization Date of Insertion: Apr 23, 2017 A/P Problem List: (1) GERD (gastroesophageal reflux disease) ICD Code: K21.9 - Gastro-esophageal reflux disease without esophagitis (2) Altered mental status ICD Code: R41.82 - Altered mental status, unspecified Status: Acute (3) Sepsis ICD Code: A41.9 - Sepsis, unspecified organism Status: Acute (4) Alzheimer's dementia ICD Code: G30.9 - Alzheimer's disease, unspecified Status: Chronic (5) Depression ICD Code: F32.9 - Major depressive disorder, single episode, unspecified Status: Chronic (6) Hypertension ICD Code: I10 - Essential (primary) hypertension (7) Anxiety ICD Code: F41.9 - Anxiety disorder, unspecified (8) Vomiting ICD Code: R11.10 - Vomiting, unspecified Status: Resolved (9) UTI (urinary tract infection) ICD Code: N39.0 - Urinary tract infection, site not specified Status: Acute Assessment and Plan This is a 82-year-old female residing in SNF who presented with nausea vomiting Acute changein MS - S/P stroke alert vs SEzisure S/P TPA MS gradually improving, spontaenously moving Neurology ff along with us on IV Cerebryx- dose decrease to 100 mg q 8 consult Speech therapy for swallowing and cognitive evaluation- pureed diet NPO. start D5NS Sepsis secondary to UTI ESBL - on ertapenem. - Repeat Blood cx negative so far. ID ff - Continue Invanz X 14 days total. till 05/04 Hypokalemia- improved Hypomagnesemia- improved recheck labs today continue IVF Dementia Seroquel dose down to 12.5 mg hs- will DC for now HYpertension Lisinorpil to 20 mg daily,. continue hydralazine 25 mg po tid PT/OT daily DNR. TEDs/SCDs Transfer to medical floor Problem Qualifiers (1) Sepsis: Qualified Codes: A41.9 - Sepsis, unspecified organism (2) Alzheimer's dementia: (3) Hypertension: Qualified Codes: I10 - Essential (primary) hypertension (4) UTI (urinary tract infection): Qualified Codes: N30.00 - Acute cystitis without hematuria Jemma Ching MD Apr 25, 2017 13:45
[2017-04-25] MEDS ORDERED: ENALAPRILAT 1.25 MG/ML VIAL IV PUSH PRN (14:00)
[2017-04-25] MEDS: cloNIDine HCL 0.1 MG TAB PO PRN (14:29)
[2017-04-25] MEDS: hydrALAZINE HCL 25 MG TAB PO SCH ×2 (14:29→21:55)
[2017-04-25] MEDS: ENOXAPARIN SODIUM 40 MG/0.4 ML SYRINGE SQ SCH (14:30)
[2017-04-25] MEDS: ERTAPENEM INJ 1,000 MG in SODIUM CHLORIDE 0.9% INJ 100 ML IV SCH (14:40)
--- NOTE | 2017-04-25 14:45 | MG ---
cc: Sammy Lab No: [id number] Date: 04/25/2017 Age: Sex: F Race: TECHNIQUE 17 channel EEG. DESCRIPTION The background rhythm reveals mild slowing in the theta range at about 6 Hz. There is occasionally alpha rhythm, no lateralizing features identified. No epileptiform features are seen. Occasional muscle artifact identified. Photic results of poor driving response. INTERPRETATION Mildly abnormal study consistent with a [id number] encephalopathy. MD BRAD De Leon/marcelino /1:38 PM /2:44 PM
--- NOTE | 2017-04-25 14:54 | RADRPT ---
EXAM DATE/TIME: 04/25/2017 13:47 [facility] COMPARISON: No previous studies available for comparison. INDICATIONS : Cerebrovascular accident. MEDICAL HISTORY : Dementia. Hypertension. Osteoarthritis. Dirythmic disorder. Confusion. GERD. Depression. Anxiety. Ane thierno. ESBL. SURGICAL HISTORY : Brain surgery. ENCOUNTER: Initial ACUITY: 1 day PAIN SCORE: Nonresponsive. LOCATION: Bilateral neck PEAK SYSTOLIC VELOCITIES (cm/sec): ICA/CCA RATIO: Right: 1.1 Left: 1.8 ICA: Right: 89 Left: 105 CCA: Right: 82 Left: 57 ECA: Right: 68 Left: 68 VERTEBRAL: Right: 51 antegrade Left: 46 antegrade Elevated flow velocities and ICA/CCA ratios have been found to correlate with increased degrees of vessel stenosis, calculated as percentage of diameter relative to a normal segment of distal ICA/CCA FINDINGS: RIGHT CAROTID: Mild calcified plaque involving the ICA origin. No luminal narrowing by grayscale analysis. ICA wavef orm is normal. LEFT CAROTID: Mild calcified plaque involving the ICA origin. No luminal narrowing by grayscale analysis. ICA wavef orm is normal. The mild elevation of velocity of the distal ICA is felt related to the tortuosity of the vessel. VERTEBRAL ARTERIES: Antegrade flow is seen in both vertebral arteries. MISCELLANEOUS: None. CONCLUSION: 1. Mild calcified plaque involving the carotid arteries bilaterally without hemodynamically significa nt stenosis. 2. Antegrade flow involving both vertebral arteries. Roni Fox Jr., MD on April 25, 2017 at 14:48 Board Certified Radiologist. This report was verified electronically.
[2017-04-25] MEDS: D5-1/2 NS + KCL 10 MEQ INJ 1,000 ML IV SCH (16:52)
[2017-04-25] MEDS: QUEtiapine FUMARATE 25 MG TAB PO SCH (21:00)
[2017-04-25] MEDS: FAMOTIDINE 20 MG TAB PO SCH (21:54)
[2017-04-26] VITALS (9 sets, daily range): BP systolic 96–161; BP diastolic 61–76; PULSE 66–96; RESP 18–20; TEMP 97–98.5; O2SAT 93–97
[2017-04-26] MEDS: cloNIDine HCL 0.1 MG TAB PO PRN (00:24)
[2017-04-26] MEDS: hydrALAZINE HCL 25 MG TAB PO SCH ×3 (05:07→22:08)
[2017-04-26] MEDS: FOSPHENYTOIN SODIUM 100 MG PE/2 ML VIAL IV SCH ×3 (05:17→22:08)
[2017-04-26] MEDS: D5-1/2 NS + KCL 10 MEQ INJ 1,000 ML IV SCH ×2 (06:06→22:25)
[2017-04-26] MEDS: SODIUM CHLORIDE 0.9% FLUSH 10 ML FLUSH IV FLUSH SCH ×2 (09:00→21:00)
[2017-04-26] MEDS: LISINOPRIL 20 MG TAB PO SCH (09:00)
[2017-04-26] MEDS: PANTOPRAZOLE SODIUM 40 MG VIAL IV PUSH SCH (09:19)
[2017-04-26] MEDS: DIVALPROEX SODIUM SPRINKLES 125 MG CAP PO SCH ×2 (09:19→16:47)
[2017-04-26] MEDS: FAMOTIDINE 20 MG TAB PO SCH ×2 (09:20→22:08)
[2017-04-26] MEDS: ASPIRIN 325 MG TAB PO SCH (09:20)
[2017-04-26] MEDS: CITALOPRAM HYDROBROMIDE 20 MG TAB PO SCH (09:20)
[2017-04-26] MEDS: DOCUSATE SODIUM 50 MG/SENNA 8.6 MG TAB PO SCH ×2 (09:20→21:00)
--- NOTE | 2017-04-26 10:48 | HHI.PR ---
Subjective Remarks smiled and stated her name "Minerva". "okay" gripped when hands held Objective Vitals Vital Signs Date Time Temp Pulse Resp B/P (MAP) Pulse Ox O2 Delivery O2 Flow Rate FiO2 04/26/17 08:04 97.5 79 20 96/66 (76) 97 04/26/17 04:04 96 04/26/17 04:00 97.0 69 18 158/72 (100) 96 04/26/17 01:45 127/61 (83) 04/26/17 00:39 98.4 66 18 160/69 (99) 96 04/25/17 21:25 97.7 74 18 154/69 (97) 96 04/25/17 16:00 98.0 60 25 116/57 (76) 100 04/25/17 15:01 65 23 147/64 (91) 99 04/25/17 14:01 64 25 165/67 (99) 100 04/25/17 13:00 71 21 180/73 (108) 99 04/25/17 12:18 76 32 176/78 (110) 99 04/25/17 12:01 74 23 189/84 (119) 95 04/25/17 11:53 64 22 187/83 (117) 99 04/25/17 11:36 70 24 174/82 (112) 99 04/25/17 11:35 67 19 180/77 (111) 99 04/25/17 11:00 64 18 158/71 (100) 98 I/O 04/25/17 04/25/17 04/25/17 04/26/17 04/26/17 04/26/17 07:00 15:00 23:00 07:00 15:00 23:00 Intake Total 498 ml 892 ml 660 ml Output Total 350 ml 300 ml 700 ml Balance 148 ml 592 ml -40 ml Intake Oral 300 ml IV Total 498 ml 592 ml 660 ml Output Urine Total 350 ml 300 ml 700 ml # Bowel Movements 1 Result Diagram: 04/24/17 0745 04/24/17 0745 Imaging Last Impressions Carotid Artery Ultrasound 04/25/17 0000 Signed Impressions: Service Date/Time: Tuesday, April 25, 2017 13:47 - CONCLUSION: 1. Mild calcified plaque involving the carotid arteries bilaterally without hemodynamically significant stenosis. 2. Antegrade flow involving both vertebral arteries. Roni Fox Jr., MD Head CT 04/24/17 1400 Signed Impressions: Service Date/Time: April 14:40 - CONCLUSION: 1. No acute findings. Stable encephalomalacia right temporal and occipital lobes. Sudhir Hartman MD Head Magnetic Resonance Angiography 04/23/17 0000 Signed Impressions: Service Date/Time: Sunday, April 23, 2017 14:23 - CONCLUSION: There is a short segment stenosis of the origin of the left posterior communicating communicating artery which supplies almost all of the left posterior cerebral circulation. Xander Balderrama MD Brain MRI 04/23/17 0000 Signed Impressions: Service Date/Time: Sunday, April 23, 2017 14:23 - CONCLUSION: 1. No acute intracranial abnormality. 2. Encephalomalacia right occipital lobe. 3. Atrophy and chronic small vessel ischemic change. 4. Fluid signal within the mastoid air cells on the left. Clinical evaluation for any signs of acute mastoiditis suggested. Roni Fox Jr., MD Chest X-Ray 04/18/17 0000 Signed Impressions: Service Date/Time: Tuesday, April 18, 2017 09:29 - CONCLUSION: 1. No acute cardiopulmonary findings. Galo Elizalde MD Abdomen/Pelvis CT 04/18/17 0000 Signed Impressions: Service Date/Time: Tuesday, April 18, 2017 08:09 - CONCLUSION: 1. Diverticulosis without diverticulitis. 2. Status post cholecystectomy. 3. Small hiatal hernia. Abram Johnson MD Objective Remarks awake and swallowed well - pills anicteric, pupils equal- able to make eye contact, spoke and stated her name, states Okay no nuchal rigidity lungs- no rales regular rhythm abdomen soft, + bowel sounds extremities no edema, LUE- PICC in place moves all extremities- spontaneously- generalized weakness- no focal weakness + resistance to all extension- strength seems equal Procedures NONE Urinary Catheter: Yes Assessment to: Remove Date of Insertion: Apr 23, 2017 Date of Removal: Apr 26, 2017 A/P Problem List: (1) GERD (gastroesophageal reflux disease) ICD Code: K21.9 - Gastro-esophageal reflux disease without esophagitis (2) Altered mental status ICD Code: R41.82 - Altered mental status, unspecified Status: Acute (3) Sepsis ICD Code: A41.9 - Sepsis, unspecified organism Status: Acute (4) Alzheimer's dementia ICD Code: G30.9 - Alzheimer's disease, unspecified Status: Chronic (5) Depression ICD Code: F32.9 - Major depressive disorder, single episode, unspecified Status: Chronic (6) Hypertension ICD Code: I10 - Essential (primary) hypertension (7) Anxiety ICD Code: F41.9 - Anxiety disorder, unspecified (8) Vomiting ICD Code: R11.10 - Vomiting, unspecified Status: Resolved (9) UTI (urinary tract infection) ICD Code: N39.0 - Urinary tract infection, site not specified Status: Acute Assessment and Plan This is a 82-year-old female residing in SNF who presented with nausea vomiting Acute change in MS - S/P stroke alert TIA vs Seizure S/P TPA MS improved- likely now near baseline Neurology ff along with us on IV Cerebryx- dose decrease to 100 mg q 8- level pending Speech therapy for swallowing and cognitive evaluation- pureed diet Sepsis secondary to UTI ESBL - on ertapenem. - Repeat Blood cx negative so far. ID ff - Continue Invanz X 14 days total. till 05/04 Hypokalemia-replaced. recheck today Hypomagnesemia- improved continue IVF Dementia - pleasant and cooperative. HYpertension Lisinorpil to 20 mg daily,. continue hydralazine 25 mg po tid PT/OT daily speech therapy daily DNR. TEDs/SCDs Problem Qualifiers (1) Sepsis: Qualified Codes: A41.9 - Sepsis, unspecified organism (2) Alzheimer's dementia: (3) Hypertension: Qualified Codes: I10 - Essential (primary) hypertension (4) UTI (urinary tract infection): Qualified Codes: N30.00 - Acute cystitis without hematuria Jemma Ching MD Apr 26, 2017 10:48
[2017-04-26 12:18] LABS: BICARBONATE 23.3 MEQ/L (21.0-32.0); POTASSIUM 3.3 MEQ/L (3.5-5.1)
--- NOTE | 2017-04-26 13:06 | HHI.PR ---
Review/Management Diagnosis CVA---resolved after iv tpa seizure--on vpa and dph, vpa is subtherapeutic--increase depakote Plan increase depakote continue phenytoin same dose as level now in therapeutic range continue ASA follow up echo Diagnosis/Plan: (1) Acute ischemic left MCA stroke ICD Codes: I63.512 - Cerebral infarction due to unspecified occlusion or stenosis of left middle cerebral artery Status: Acute Plan: mri brain no acute infarct; possible tia resolved vs sz poor quality eeg s/p tpa recs repeat ct brain 24 hrs post tpa repeat eeg continue iv cerebryx then change to po dilantin follow exam ok for floor in am p.t./s.t. (2) Chronic ischemic right MCA stroke ICD Codes: I69.30 - Unspecified sequelae of cerebral infarction Status: Chronic (3) Alzheimer's dementia ICD Codes: G30.9 - Alzheimer's disease, unspecified Status: Chronic (4) Depression ICD Codes: F32.9 - Major depressive disorder, single episode, unspecified Status: Chronic Subjective Subjective Comments No acute events reported Active Medications Current Medications Medications (Trade) Dose Ordered Sig/Pari Route Start Time Stop Time Status Last Admin (D50w (Vial) Inj) 50 ml UNSCH PRN IV PUSH 04/18/17 11:15 (Glucagon Inj) 1 mg UNSCH PRN OTHER 04/18/17 11:15 (NS Flush) 2 ml UNSCH PRN IV FLUSH 04/18/17 11:15 (NS Flush) 2 ml BID IV FLUSH 04/18/17 21:00 04/25/17 09:18 (Tylenol) 650 mg Q4H PRN PO 04/18/17 11:15 04/20/17 15:04 (Zofran Inj) 4 mg Q6H PRN IVP 04/18/17 11:15 (Compazine Supp) 25 mg Q12H PRN RECTAL 04/18/17 11:15 (Tylenol) 650 mg Q6H PRN PO 04/18/17 11:15 04/23/17 05:31 ([place] 5-325 Mg) 1 tab Q4H PRN PO 04/18/17 11:15 ([place] 10-325 Mg) 1 tab Q4H PRN PO 04/18/17 11:15 (Morphine Inj) 2 mg Q3H PRN IV PUSH 04/18/17 11:15 (Morphine Inj) 4 mg Q3H PRN IV PUSH 04/18/17 11:15 (Narcan Inj) 0.4 mg UNSCH PRN IV PUSH 04/18/17 11:15 (Genevieve-Colace) 1 tab BID PO 04/18/17 21:00 04/26/17 09:20 (Milk Of Magnesia Liq) 30 ml Q12H PRN PO 04/18/17 11:15 (Senokot) 17.2 mg Q12H PRN PO 04/18/17 11:15 (Dulcolax Supp) 10 mg DAILY PRN RECTAL 04/18/17 11:15 (Lactulose Liq) 30 ml DAILY PRN PO 04/18/17 11:15 (CeleXA) 10 mg DAILY PO 04/18/17 12:00 04/26/17 09:20 (Depakote Sprinkles) 125 mg BID PO 04/18/17 12:00 04/26/17 09:19 (Toprol Xl) 12.5 mg DAILY PO 04/18/17 12:00 Future Hold 04/23/17 08:52 (Pill Splitter) 1 ea UNSCH PRN OTHER 04/18/17 11:45 Ertapenem 1000 mg/ Sodium Chloride 100 ml @ 200 mls/hr Q24H IV 04/20/17 15:00 05/04/17 14:59 04/25/17 14:40 (Haldol Inj) 2 mg Q4H PRN IM 04/20/17 17:30 04/21/17 04:52 (Ativan Inj) 1 mg Q2H PRN IV PUSH 04/20/17 17:30 (SEROquel) 12.5 mg HS PO 04/22/17 21:00 Nicardipine HCl 25 mg/Sodium Chloride 250 ml @ 0 mls/hr TITRATE PRN IV 04/23/17 16:00 (Protonix Inj) 40 mg DAILY IV PUSH 04/24/17 09:00 04/26/17 09:19 (Cerebyx Inj) 100 mgpe Q8HR IV 04/25/17 14:00 04/26/17 05:17 (Aspirin) 325 mg DAILY PO 04/25/17 13:15 04/26/17 09:20 (Lovenox Inj) 40 mg Q24H SQ 04/25/17 14:00 04/25/17 14:30 (Pepcid) 10 mg BID PO 04/25/17 21:00 04/26/17 09:20 (Apresoline) 25 mg Q8H PO 04/25/17 14:00 04/26/17 05:07 (Prinivil) 20 mg DAILY PO 04/26/17 09:00 (Catapres) 0.1 mg Q6H PRN PO 04/25/17 13:45 04/26/17 00:24 Potassium Chloride/Dextrose/ Sod Cl 1,000 ml @ 60 mls/hr [id number] IV 04/25/17 14:00 04/26/17 06:06 (Vasotec Inj) 1.25 mg Q6H PRN IV PUSH 04/25/17 14:00 Allergies Allergies Coded Allergies atorvastatin (Unverified Allergy, Unknown, 01/14/17) clotrimazole (Unverified Allergy, Unknown, 01/14/17) diltiazem (Unverified Allergy, Unknown, 01/14/17) iodine (Unverified Allergy, Unknown, 01/14/17) meperidine (Unverified Allergy, Unknown, 01/14/17) nifedipine (Unverified Allergy, Unknown, 01/14/17) potassium iodide (Unverified Allergy, Unknown, 01/14/17) povidone-iodine (Unverified Allergy, Unknown, 01/14/17) propranolol (Unverified Allergy, Unknown, 01/14/17) sertraline (Unverified Allergy, Unknown, 01/14/17) sodium iodide (Unverified Allergy, Unknown, 01/14/17) sodium iodide (Unverified Allergy, Unknown, 01/14/17) Review of Systems All other ROS: Unable to obtain Exam I&O / VS Vital Signs Date Time Temp Pulse Resp B/P (MAP) Pulse Ox O2 Delivery O2 Flow Rate FiO2 04/26/17 12:49 97.9 79 20 114/76 (89) 93 04/26/17 08:04 97.5 79 20 96/66 (76) 97 04/26/17 04:04 96 04/26/17 04:00 97.0 69 18 158/72 (100) 96 04/26/17 01:45 127/61 (83) 04/26/17 00:39 98.4 66 18 160/69 (99) 96 04/25/17 21:25 97.7 74 18 154/69 (97) 96 04/25/17 16:00 98.0 60 25 116/57 (76) 100 04/25/17 15:01 65 23 147/64 (91) 99 04/25/17 14:01 64 25 165/67 (99) 100 Exam Comments lethargic but janine to arouse. Follow commands CN 2-12 normal MOTOR 5/5 BUE and BLE Objective Radiology Results carotid US--no significant stenosis Micro and Labs Laboratory Tests Test 04/26/17 11:35 Blood Urea Nitrogen 12 Creatinine 0.68 Random Glucose 113 Calcium Level 8.1 Sodium Level 142 Potassium Level 3.3 Chloride Level 112 Carbon Dioxide Level 23.3 Anion Gap 7 Estimat Glomerular Filtration Rate 82 Phenytoin (Dilantin) Level 16.3 Date/Time Source Procedure Growth Status 04/20/17 15:25 Blood Peripheral Aerobic Blood Culture - Final NO GROWTH IN 5 DAYS Complete 04/20/17 15:25 Blood Peripheral Anaerobic Blood Culture - Final NO GROWTH IN 5 DAYS Complete 04/23/17 17:45 Urine Catheterized Urine Urine Culture - Final NO GROWTH IN 48 HOURS. Complete Problem Qualifiers (1) Alzheimer's dementia: Jad Wilkinson PhD Apr 26, 2017 13:06
[2017-04-26] MEDS ORDERED: POTASSIUM BICARBONATE 25 MEQ EFFERVESCENT TAB PO ONE (14:00)
[2017-04-26] MEDS: ENOXAPARIN SODIUM 40 MG/0.4 ML SYRINGE SQ SCH (14:21)
[2017-04-26] MEDS: ERTAPENEM INJ 1,000 MG in SODIUM CHLORIDE 0.9% INJ 100 ML IV SCH (14:21)
[2017-04-26] MEDS: QUEtiapine FUMARATE 25 MG TAB PO SCH (22:10)
[2017-04-27] VITALS (8 sets, daily range): BP systolic 116–168; BP diastolic 60–83; PULSE 75–97; RESP 18–20; TEMP 97.1–98.2; O2SAT 95–99
[2017-04-27] MEDS: FOSPHENYTOIN SODIUM 100 MG PE/2 ML VIAL IV SCH (05:43)
[2017-04-27] MEDS: hydrALAZINE HCL 25 MG TAB PO SCH ×3 (05:43→22:29)
--- NOTE | 2017-04-27 08:50 | HHI.PR ---
Subjective Remarks awake and alert, denies any pain stated her name and responded approrpriately and ff all commands thinks she is in [place] Objective Vitals Vital Signs Date Time Temp Pulse Resp B/P (MAP) Pulse Ox O2 Delivery O2 Flow Rate FiO2 04/27/17 08:01 97.4 79 20 139/65 (89) 96 04/27/17 06:07 97.8 88 20 142/65 (90) 95 04/27/17 00:00 97.8 97 20 126/60 (82) 95 04/26/17 20:00 94 04/26/17 20:00 98.5 92 20 135/61 (85) 95 04/26/17 17:31 158/68 (98) 04/26/17 16:31 98.5 84 20 161/72 (101) 96 04/26/17 12:49 97.9 79 20 114/76 (89) 93 I/O 04/26/17 04/26/17 04/26/17 04/27/17 04/27/17 04/27/17 07:00 15:00 23:00 07:00 15:00 23:00 Intake Total 660 ml 480 ml 1092 ml 762 ml Output Total 700 ml 100 ml Balance -40 ml 380 ml 1092 ml 762 ml Intake Oral 480 ml 320 ml IV Total 660 ml 1092 ml 442 ml Output Urine Total 700 ml 100 ml # Voids 2 2 # Bowel Movements 1 Result Diagram: 04/24/17 0745 04/26/17 1135 Imaging Last Impressions Carotid Artery Ultrasound 04/25/17 0000 Signed Impressions: Service Date/Time: Tuesday, April 25, 2017 13:47 - CONCLUSION: 1. Mild calcified plaque involving the carotid arteries bilaterally without hemodynamically significant stenosis. 2. Antegrade flow involving both vertebral arteries. Roni Fox Jr., MD Head CT 04/24/17 1400 Signed Impressions: Service Date/Time: April 14:40 - CONCLUSION: 1. No acute findings. Stable encephalomalacia right temporal and occipital lobes. Sudhir Hartman MD Head Magnetic Resonance Angiography 04/23/17 0000 Signed Impressions: Service Date/Time: Sunday, April 23, 2017 14:23 - CONCLUSION: There is a short segment stenosis of the origin of the left posterior communicating communicating artery which supplies almost all of the left posterior cerebral circulation. Xander Balderrama MD Brain MRI 04/23/17 0000 Signed Impressions: Service Date/Time: Sunday, April 23, 2017 14:23 - CONCLUSION: 1. No acute intracranial abnormality. 2. Encephalomalacia right occipital lobe. 3. Atrophy and chronic small vessel ischemic change. 4. Fluid signal within the mastoid air cells on the left. Clinical evaluation for any signs of acute mastoiditis suggested. Roni Fox Jr., MD Chest X-Ray 04/18/17 0000 Signed Impressions: Service Date/Time: Tuesday, April 18, 2017 09:29 - CONCLUSION: 1. No acute cardiopulmonary findings. Galo Elizalde MD Abdomen/Pelvis CT 04/18/17 0000 Signed Impressions: Service Date/Time: Tuesday, April 18, 2017 08:09 - CONCLUSION: 1. Diverticulosis without diverticulitis. 2. Status post cholecystectomy. 3. Small hiatal hernia. Abram Johnson MD Objective Remarks awake alert, oriented x 1, speech clear and ff all commands, appropriate response anicteric, pupils equal- no nuchal rigidity lungs- no rales regular rhythm abdomen soft, + bowel sounds extremities no edema, LUE- PICC in place moves all extremities- spontaneously- no focal weakness no calf swelling or tenderness Procedures NONE Date of Insertion: Apr 23, 2017 Date of Removal: Apr 26, 2017 A/P Problem List: (1) GERD (gastroesophageal reflux disease) ICD Code: K21.9 - Gastro-esophageal reflux disease without esophagitis (2) Altered mental status ICD Code: R41.82 - Altered mental status, unspecified Status: Acute (3) Sepsis ICD Code: A41.9 - Sepsis, unspecified organism Status: Acute (4) Alzheimer's dementia ICD Code: G30.9 - Alzheimer's disease, unspecified Status: Chronic (5) Depression ICD Code: F32.9 - Major depressive disorder, single episode, unspecified Status: Chronic (6) Hypertension ICD Code: I10 - Essential (primary) hypertension (7) Anxiety ICD Code: F41.9 - Anxiety disorder, unspecified (8) Vomiting ICD Code: R11.10 - Vomiting, unspecified Status: Resolved (9) UTI (urinary tract infection) ICD Code: N39.0 - Urinary tract infection, site not specified Status: Acute Assessment and Plan This is a 82-year-old female residing in SNF who presented with nausea vomiting Acute change in MS - S/P stroke alert TIA vs Seizure S/P TPA MS improved- likely now near baseline Neurology ff along with us on IV Cerebryx- 100 mg q 8- level therapeutic- change to po dilantin Speech therapy for swallowing and cognitive evaluation- pureed diet Sepsis secondary to UTI ESBL - on ertapenem. - Repeat Blood cx negative so far. ID ff - Continue Invanz X 14 days total. till 05/04 Hypokalemia-replaced. KHC03 25 meq po daily. BMP pending Hypomagnesemia- improved continue IVF Dementia - pleasant and cooperative. HYpertension Lisinorpil to 20 mg daily,. continue hydralazine 25 mg po tid PT/OT daily speech therapy daily Out of bed to chair daily tid DNR. TEDs/SCDs CM dC planning- DBHR tomorrow if stable overnight Problem Qualifiers (1) Sepsis: Qualified Codes: A41.9 - Sepsis, unspecified organism (2) Alzheimer's dementia: (3) Hypertension: Qualified Codes: I10 - Essential (primary) hypertension (4) UTI (urinary tract infection): Qualified Codes: N30.00 - Acute cystitis without hematuria Jemma Ching MD Apr 27, 2017 08:50
[2017-04-27] MEDS: ASPIRIN 325 MG TAB PO SCH (09:00)
[2017-04-27] MEDS: SODIUM CHLORIDE 0.9% FLUSH 10 ML FLUSH IV FLUSH SCH ×2 (09:05→21:00)
[2017-04-27] MEDS: PANTOPRAZOLE SODIUM 40 MG VIAL IV PUSH SCH (09:05)
[2017-04-27] MEDS: DIVALPROEX SODIUM SPRINKLES 125 MG CAP PO SCH ×3 (09:05→17:28)
[2017-04-27] MEDS: FAMOTIDINE 20 MG TAB PO SCH ×2 (09:06→22:29)
[2017-04-27] MEDS: LISINOPRIL 20 MG TAB PO SCH (09:06)
[2017-04-27] MEDS: DOCUSATE SODIUM 50 MG/SENNA 8.6 MG TAB PO SCH ×2 (09:06→22:29)
[2017-04-27] MEDS: CITALOPRAM HYDROBROMIDE 20 MG TAB PO SCH (09:06)
[2017-04-27 09:23] LABS: BICARBONATE 20.5 MEQ/L (21.0-32.0); POTASSIUM 3.6 MEQ/L (3.5-5.1)
[2017-04-27] MEDS: D5-1/2 NS + KCL 10 MEQ INJ 1,000 ML IV SCH (11:28)
--- NOTE | 2017-04-27 13:12 | HHI.PR ---
Review/Management Diagnosis CVA---resolved after iv tpa seizure--on vpa and dph, Plan repeat levels--dph and vpa ---tomorrow Diagnosis/Plan: (1) Acute ischemic left MCA stroke ICD Codes: I63.512 - Cerebral infarction due to unspecified occlusion or stenosis of left middle cerebral artery Status: Acute Plan: mri brain no acute infarct; possible tia resolved vs sz poor quality eeg s/p tpa recs repeat ct brain 24 hrs post tpa repeat eeg continue iv cerebryx then change to po dilantin follow exam ok for floor in am p.t./s.t. (2) Chronic ischemic right MCA stroke ICD Codes: I69.30 - Unspecified sequelae of cerebral infarction Status: Chronic (3) Alzheimer's dementia ICD Codes: G30.9 - Alzheimer's disease, unspecified Status: Chronic (4) Depression ICD Codes: F32.9 - Major depressive disorder, single episode, unspecified Status: Chronic Subjective Subjective Comments No acute events reported No complaint of focal weakness Active Medications Current Medications Medications (Trade) Dose Ordered Sig/Pari Route Start Time Stop Time Status Last Admin (D50w (Vial) Inj) 50 ml UNSCH PRN IV PUSH 04/18/17 11:15 (Glucagon Inj) 1 mg UNSCH PRN OTHER 04/18/17 11:15 (NS Flush) 2 ml UNSCH PRN IV FLUSH 04/18/17 11:15 (NS Flush) 2 ml BID IV FLUSH 04/18/17 21:00 04/27/17 09:05 (Tylenol) 650 mg Q4H PRN PO 04/18/17 11:15 04/20/17 15:04 (Zofran Inj) 4 mg Q6H PRN IVP 04/18/17 11:15 (Compazine Supp) 25 mg Q12H PRN RECTAL 04/18/17 11:15 (Tylenol) 650 mg Q6H PRN PO 04/18/17 11:15 04/23/17 05:31 ([place] 5-325 Mg) 1 tab Q4H PRN PO 04/18/17 11:15 ([place] 10-325 Mg) 1 tab Q4H PRN PO 04/18/17 11:15 04/27/17 09:07 (Morphine Inj) 2 mg Q3H PRN IV PUSH 04/18/17 11:15 (Morphine Inj) 4 mg Q3H PRN IV PUSH 04/18/17 11:15 (Narcan Inj) 0.4 mg UNSCH PRN IV PUSH 04/18/17 11:15 (Genevieve-Colace) 1 tab BID PO 04/18/17 21:00 04/27/17 09:06 (Milk Of Magnesia Liq) 30 ml Q12H PRN PO 04/18/17 11:15 (Senokot) 17.2 mg Q12H PRN PO 04/18/17 11:15 (Dulcolax Supp) 10 mg DAILY PRN RECTAL 04/18/17 11:15 (Lactulose Liq) 30 ml DAILY PRN PO 04/18/17 11:15 (CeleXA) 10 mg DAILY PO 04/18/17 12:00 04/27/17 09:06 (Toprol Xl) 12.5 mg DAILY PO 04/18/17 12:00 Future Hold 04/23/17 08:52 (Pill Splitter) 1 ea UNSCH PRN OTHER 04/18/17 11:45 Ertapenem 1000 mg/ Sodium Chloride 100 ml @ 200 mls/hr Q24H IV 04/20/17 15:00 05/04/17 14:59 04/26/17 14:21 (Haldol Inj) 2 mg Q4H PRN IM 04/20/17 17:30 04/21/17 04:52 (Ativan Inj) 1 mg Q2H PRN IV PUSH 04/20/17 17:30 (SEROquel) 12.5 mg HS PO 04/22/17 21:00 04/26/17 22:10 Nicardipine HCl 25 mg/Sodium Chloride 250 ml @ 0 mls/hr TITRATE PRN IV 04/23/17 16:00 (Protonix Inj) 40 mg DAILY IV PUSH 04/24/17 09:00 04/27/17 09:05 (Aspirin) 325 mg DAILY PO 04/25/17 13:15 04/27/17 09:00 (Lovenox Inj) 40 mg Q24H SQ 04/25/17 14:00 04/26/17 14:21 (Pepcid) 10 mg BID PO 04/25/17 21:00 04/27/17 09:06 (Apresoline) 25 mg Q8H PO 04/25/17 14:00 04/27/17 05:43 (Prinivil) 20 mg DAILY PO 04/26/17 09:00 04/27/17 09:06 (Catapres) 0.1 mg Q6H PRN PO 04/25/17 13:45 04/26/17 00:24 Potassium Chloride/Dextrose/ Sod Cl 1,000 ml @ 60 mls/hr [id number] IV 04/25/17 14:00 04/27/17 11:28 (Vasotec Inj) 1.25 mg Q6H PRN IV PUSH 04/25/17 14:00 (Depakote Sprinkles) 125 mg TID PO 04/26/17 18:00 04/27/17 12:03 (Dilantin) 100 mg Q8HR PO 04/27/17 14:00 (Effer-K Eff) 25 meq DAILY PO 04/27/17 13:00 Allergies Allergies Coded Allergies atorvastatin (Unverified Allergy, Unknown, 01/14/17) clotrimazole (Unverified Allergy, Unknown, 01/14/17) diltiazem (Unverified Allergy, Unknown, 01/14/17) iodine (Unverified Allergy, Unknown, 01/14/17) meperidine (Unverified Allergy, Unknown, 01/14/17) nifedipine (Unverified Allergy, Unknown, 01/14/17) potassium iodide (Unverified Allergy, Unknown, 01/14/17) povidone-iodine (Unverified Allergy, Unknown, 01/14/17) propranolol (Unverified Allergy, Unknown, 01/14/17) sertraline (Unverified Allergy, Unknown, 01/14/17) sodium iodide (Unverified Allergy, Unknown, 01/14/17) sodium iodide (Unverified Allergy, Unknown, 01/14/17) Review of Systems All other ROS: Unable to obtain Exam I&O / VS 04/27/17 04/27/17 04/28/17 15:00 23:00 07:00 Intake Total 564 ml Balance 564 ml Intake Oral 240 ml IV Total 324 ml # Voids 4 Vital Signs Date Time Temp Pulse Resp B/P (MAP) Pulse Ox O2 Delivery O2 Flow Rate FiO2 04/27/17 12:04 98.0 85 20 168/74 (105) 97 04/27/17 08:01 97.4 79 20 139/65 (89) 96 04/27/17 06:07 97.8 88 20 142/65 (90) 95 04/27/17 00:00 97.8 97 20 126/60 (82) 95 04/26/17 20:00 94 04/26/17 20:00 98.5 92 20 135/61 (85) 95 04/26/17 17:31 158/68 (98) 04/26/17 16:31 98.5 84 20 161/72 (101) 96 Exam Comments More alert today. Follow commands CN 2-12 normal MOTOR 5/5 BUE and BLE Objective Micro and Labs Laboratory Tests Test 04/27/17 04:50 Blood Urea Nitrogen 10 Creatinine 0.80 Random Glucose 90 Calcium Level 7.9 Sodium Level 143 Potassium Level 3.6 Chloride Level 112 Carbon Dioxide Level 20.5 Anion Gap 11 Estimat Glomerular Filtration Rate 68 Phenytoin (Dilantin) Level 19.0 Date/Time Source Procedure Growth Status 04/20/17 15:25 Blood Peripheral Aerobic Blood Culture - Final NO GROWTH IN 5 DAYS Complete 04/20/17 15:25 Blood Peripheral Anaerobic Blood Culture - Final NO GROWTH IN 5 DAYS Complete 04/23/17 17:45 Urine Catheterized Urine Urine Culture - Final NO GROWTH IN 48 HOURS. Complete Problem Qualifiers (1) Alzheimer's dementia: Jad Wilkinson PhD Apr 27, 2017 13:12
[2017-04-27] MEDS: POTASSIUM BICARBONATE 25 MEQ EFFERVESCENT TAB PO SCH (14:49)
[2017-04-27] MEDS: ENOXAPARIN SODIUM 40 MG/0.4 ML SYRINGE SQ SCH (14:50)
[2017-04-27] MEDS: PHENYTOIN SODIUM 100 MG CAP PO SCH ×2 (14:50→22:29)
[2017-04-27] MEDS: ERTAPENEM INJ 1,000 MG in SODIUM CHLORIDE 0.9% INJ 100 ML IV SCH (17:30)
[2017-04-27] MEDS: QUEtiapine FUMARATE 25 MG TAB PO SCH (22:29)
[2017-04-28 00:15] VITALS: BP 170/72; PULSE 81; RESP 17; TEMP 98; O2SAT 95
[2017-04-28 03:30] VITALS: BP 179/79; PULSE 80; RESP 18; TEMP 98.6; O2SAT 96
[2017-04-28] MEDS: cloNIDine HCL 0.1 MG TAB PO PRN (03:45)
[2017-04-28 04:41] VITALS: BP 144/63; PULSE 82; RESP 18; TEMP 98.6; O2SAT 96
[2017-04-28] MEDS: D5-1/2 NS + KCL 10 MEQ INJ 1,000 ML IV SCH (06:32)
[2017-04-28] MEDS: PHENYTOIN SODIUM 100 MG CAP PO SCH (06:32)
[2017-04-28] MEDS: hydrALAZINE HCL 25 MG TAB PO SCH (06:32)
--- NOTE | 2017-04-28 07:49 | HHI.PR ---
Review/Management Diagnosis/Plan: (1) Acute ischemic left MCA stroke ICD Codes: I63.512 - Cerebral infarction due to unspecified occlusion or stenosis of left middle cerebral artery Status: Acute Plan: mri brain no acute infarct; possible tia resolved vs sz s/p tpa on 2 sz meds recs increase depakote to 500mg tid sprinkles. once level therapeutic could d/c dilantin d/c planning to ut d/w medical (2) Chronic ischemic right MCA stroke ICD Codes: I69.30 - Unspecified sequelae of cerebral infarction Status: Chronic (3) Alzheimer's dementia ICD Codes: G30.9 - Alzheimer's disease, unspecified Status: Chronic (4) Depression ICD Codes: F32.9 - Major depressive disorder, single episode, unspecified Status: Chronic Subjective Subjective Comments No acute events reported No headache No chest pain No dyspnea Active Medications Current Medications Medications (Trade) Dose Ordered Sig/Pari Route Start Time Stop Time Status Last Admin (D50w (Vial) Inj) 50 ml UNSCH PRN IV PUSH 04/18/17 11:15 (Glucagon Inj) 1 mg UNSCH PRN OTHER 04/18/17 11:15 (NS Flush) 2 ml UNSCH PRN IV FLUSH 04/18/17 11:15 (NS Flush) 2 ml BID IV FLUSH 04/18/17 21:00 04/27/17 09:05 (Tylenol) 650 mg Q4H PRN PO 04/18/17 11:15 04/20/17 15:04 (Zofran Inj) 4 mg Q6H PRN IVP 04/18/17 11:15 (Compazine Supp) 25 mg Q12H PRN RECTAL 04/18/17 11:15 (Tylenol) 650 mg Q6H PRN PO 04/18/17 11:15 04/23/17 05:31 ([place] 5-325 Mg) 1 tab Q4H PRN PO 04/18/17 11:15 ([place] 10-325 Mg) 1 tab Q4H PRN PO 04/18/17 11:15 04/27/17 09:07 (Morphine Inj) 2 mg Q3H PRN IV PUSH 04/18/17 11:15 (Morphine Inj) 4 mg Q3H PRN IV PUSH 04/18/17 11:15 (Narcan Inj) 0.4 mg UNSCH PRN IV PUSH 04/18/17 11:15 (Genevieve-Colace) 1 tab BID PO 04/18/17 21:00 04/27/17 22:29 (Milk Of Magnesia Liq) 30 ml Q12H PRN PO 04/18/17 11:15 (Senokot) 17.2 mg Q12H PRN PO 04/18/17 11:15 (Dulcolax Supp) 10 mg DAILY PRN RECTAL 04/18/17 11:15 (Lactulose Liq) 30 ml DAILY PRN PO 04/18/17 11:15 (CeleXA) 10 mg DAILY PO 04/18/17 12:00 04/27/17 09:06 (Toprol Xl) 12.5 mg DAILY PO 04/18/17 12:00 Future Hold 04/23/17 08:52 (Pill Splitter) 1 ea UNSCH PRN OTHER 04/18/17 11:45 Ertapenem 1000 mg/ Sodium Chloride 100 ml @ 200 mls/hr Q24H IV 04/20/17 15:00 05/04/17 14:59 04/27/17 17:30 (Haldol Inj) 2 mg Q4H PRN IM 04/20/17 17:30 04/21/17 04:52 (Ativan Inj) 1 mg Q2H PRN IV PUSH 04/20/17 17:30 (SEROquel) 12.5 mg HS PO 04/22/17 21:00 04/27/17 22:29 Nicardipine HCl 25 mg/Sodium Chloride 250 ml @ 0 mls/hr TITRATE PRN IV 04/23/17 16:00 (Protonix Inj) 40 mg DAILY IV PUSH 04/24/17 09:00 04/27/17 09:05 (Aspirin) 325 mg DAILY PO 04/25/17 13:15 04/27/17 09:00 (Lovenox Inj) 40 mg Q24H SQ 04/25/17 14:00 04/27/17 14:50 (Pepcid) 10 mg BID PO 04/25/17 21:00 04/27/17 22:29 (Apresoline) 25 mg Q8H PO 04/25/17 14:00 04/28/17 06:32 (Prinivil) 20 mg DAILY PO 04/26/17 09:00 04/27/17 09:06 (Catapres) 0.1 mg Q6H PRN PO 04/25/17 13:45 04/28/17 03:45 Potassium Chloride/Dextrose/ Sod Cl 1,000 ml @ 60 mls/hr [id number] IV 04/25/17 14:00 04/28/17 06:32 (Vasotec Inj) 1.25 mg Q6H PRN IV PUSH 04/25/17 14:00 (Depakote Sprinkles) 125 mg TID PO 04/26/17 18:00 04/27/17 17:28 (Dilantin) 100 mg Q8HR PO 04/27/17 14:00 04/28/17 06:32 (Effer-K Eff) 25 meq DAILY PO 04/27/17 13:00 04/27/17 14:49 Allergies Allergies Coded Allergies atorvastatin (Unverified Allergy, Unknown, 01/14/17) clotrimazole (Unverified Allergy, Unknown, 01/14/17) diltiazem (Unverified Allergy, Unknown, 01/14/17) iodine (Unverified Allergy, Unknown, 01/14/17) meperidine (Unverified Allergy, Unknown, 01/14/17) nifedipine (Unverified Allergy, Unknown, 01/14/17) potassium iodide (Unverified Allergy, Unknown, 01/14/17) povidone-iodine (Unverified Allergy, Unknown, 01/14/17) propranolol (Unverified Allergy, Unknown, 01/14/17) sertraline (Unverified Allergy, Unknown, 01/14/17) sodium iodide (Unverified Allergy, Unknown, 01/14/17) sodium iodide (Unverified Allergy, Unknown, 01/14/17) Review of Systems All other ROS: Unable to obtain Exam I&O / VS Vital Signs Date Time Temp Pulse Resp B/P (MAP) Pulse Ox O2 Delivery O2 Flow Rate FiO2 04/28/17 04:41 98.6 82 18 144/63 (90) 96 04/28/17 03:30 98.6 80 18 179/79 (112) 96 04/28/17 00:15 98.0 81 17 170/72 (104) 95 04/27/17 20:19 98.2 80 18 163/73 (103) 96 04/27/17 20:00 94 04/27/17 16:30 75 04/27/17 16:05 97.1 75 18 116/83 (94) 99 04/27/17 12:04 98.0 85 20 168/74 (105) 97 04/27/17 08:01 97.4 79 20 139/65 (89) 96 Exam Comments drowsy, alerts, ox to self, not following consistently, eomi, ou 3-2mm, face sym , christianson to gravity Objective Micro and Labs Laboratory Tests Test 04/28/17 06:22 Phenytoin (Dilantin) Level 16.1 Valproic Acid (Depakene) Level 6 Date/Time Source Procedure Growth Status 04/20/17 15:25 Blood Peripheral Aerobic Blood Culture - Final NO GROWTH IN 5 DAYS Complete 04/20/17 15:25 Blood Peripheral Anaerobic Blood Culture - Final NO GROWTH IN 5 DAYS Complete 04/23/17 17:45 Urine Catheterized Urine Urine Culture - Final NO GROWTH IN 48 HOURS. Complete Problem Qualifiers (1) Alzheimer's dementia: Calvin Mendoza MD Apr 28, 2017 07:49
--- NOTE | 2017-04-28 07:55 | HHI.PR ---
Subjective Remarks childlike and loveable took all her pills with no difficulty stated her name moves all extremities spontaneously Objective Vitals Vital Signs Date Time Temp Pulse Resp B/P (MAP) Pulse Ox O2 Delivery O2 Flow Rate FiO2 04/28/17 04:41 98.6 82 18 144/63 (90) 96 04/28/17 03:30 98.6 80 18 179/79 (112) 96 04/28/17 00:15 98.0 81 17 170/72 (104) 95 04/27/17 20:19 98.2 80 18 163/73 (103) 96 04/27/17 20:00 94 04/27/17 16:30 75 04/27/17 16:05 97.1 75 18 116/83 (94) 99 04/27/17 12:04 98.0 85 20 168/74 (105) 97 04/27/17 08:01 97.4 79 20 139/65 (89) 96 I/O 04/27/17 04/27/17 04/27/17 04/28/17 04/28/17 04/28/17 07:00 15:00 23:00 07:00 15:00 23:00 Intake Total 762 ml 564 ml 716 ml 556 ml Balance 762 ml 564 ml 716 ml 556 ml Intake Oral 320 ml 240 ml 120 ml 120 ml IV Total 442 ml 324 ml 596 ml 436 ml # Voids 2 4 2 2 Result Diagram: 04/24/17 0745 04/27/17 0450 Imaging Last Impressions Carotid Artery Ultrasound 04/25/17 0000 Signed Impressions: Service Date/Time: Tuesday, April 25, 2017 13:47 - CONCLUSION: 1. Mild calcified plaque involving the carotid arteries bilaterally without hemodynamically significant stenosis. 2. Antegrade flow involving both vertebral arteries. Roni Fox Jr., MD Head CT 04/24/17 1400 Signed Impressions: Service Date/Time: April 14:40 - CONCLUSION: 1. No acute findings. Stable encephalomalacia right temporal and occipital lobes. Sudhir Hartman MD Head Magnetic Resonance Angiography 04/23/17 0000 Signed Impressions: Service Date/Time: Sunday, April 23, 2017 14:23 - CONCLUSION: There is a short segment stenosis of the origin of the left posterior communicating communicating artery which supplies almost all of the left posterior cerebral circulation. Xander Balderrama MD Brain MRI 04/23/17 0000 Signed Impressions: Service Date/Time: Sunday, April 23, 2017 14:23 - CONCLUSION: 1. No acute intracranial abnormality. 2. Encephalomalacia right occipital lobe. 3. Atrophy and chronic small vessel ischemic change. 4. Fluid signal within the mastoid air cells on the left. Clinical evaluation for any signs of acute mastoiditis suggested. Roni Fox Jr., MD Chest X-Ray 04/18/17 0000 Signed Impressions: Service Date/Time: Tuesday, April 18, 2017 09:29 - CONCLUSION: 1. No acute cardiopulmonary findings. Galo Elizalde MD Abdomen/Pelvis CT 04/18/17 0000 Signed Impressions: Service Date/Time: Tuesday, April 18, 2017 08:09 - CONCLUSION: 1. Diverticulosis without diverticulitis. 2. Status post cholecystectomy. 3. Small hiatal hernia. Abram Johnson MD Objective Remarks awake alert, oriented x 1, speech clear and ff all commands, appropriate response, childlike anicteric, pupils equal- , good gag no nuchal rigidity lungs- no rales regular rhythm abdomen soft, + bowel sounds extremities no edema, LUE- PICC in place moves all extremities- spontaneously- no focal weakness no calf swelling or tenderness Procedures NONE Date of Insertion: Apr 23, 2017 Date of Removal: Apr 26, 2017 A/P Problem List: (1) GERD (gastroesophageal reflux disease) ICD Code: K21.9 - Gastro-esophageal reflux disease without esophagitis (2) Altered mental status ICD Code: R41.82 - Altered mental status, unspecified Status: Acute (3) Sepsis ICD Code: A41.9 - Sepsis, unspecified organism Status: Acute (4) Alzheimer's dementia ICD Code: G30.9 - Alzheimer's disease, unspecified Status: Chronic (5) Depression ICD Code: F32.9 - Major depressive disorder, single episode, unspecified Status: Chronic (6) Hypertension ICD Code: I10 - Essential (primary) hypertension (7) Anxiety ICD Code: F41.9 - Anxiety disorder, unspecified (8) Vomiting ICD Code: R11.10 - Vomiting, unspecified Status: Resolved (9) UTI (urinary tract infection) ICD Code: N39.0 - Urinary tract infection, site not specified Status: Acute Assessment and Plan This is a 82-year-old female residing in SNF who presented with nausea vomiting Acute change in MS - S/P stroke alert TIA vs Seizure S/P TPA MS improved- near baseline Neurology ff along with us on dilantin 100 mg po q 8 level therapeutic- Increase Depakote 500 mg po tid today 04/28 continue Speech therapy for swallowing and cognitive evaluation- pureed diet check [place] level in 3 days - If depakote level therapeutic- DC dilantin per Neurology recommendations Sepsis secondary to UTI ESBL - on ertapenem. - Repeat Blood cx negative so far. ID ff - Continue Invanz X 14 days total. till 05/04 Hypokalemia-replaced. KHC03 25 meq po daily. Hypomagnesemia- improved Dementia - pleasant and cooperative. HYpertension Lisinorpil to 20 mg daily,. increase Hydralazine to 50 mg po tid PT/OT daily speech therapy daily Out of bed to chair daily tid DNR. TEDs/SCDs CM dC planning- DBHR today Problem Qualifiers (1) Sepsis: Qualified Codes: A41.9 - Sepsis, unspecified organism (2) Alzheimer's dementia: (3) Hypertension: Qualified Codes: I10 - Essential (primary) hypertension (4) UTI (urinary tract infection): Qualified Codes: N30.00 - Acute cystitis without hematuria Jemma Ching MD Apr 28, 2017 07:55
[2017-04-28] MEDS ORDERED: HYDR-3800 PO (08:03)
[2017-04-28 08:08] VITALS: BP 134/76; PULSE 70; RESP 16; TEMP 98.1; O2SAT 95
[2017-04-28] MEDS ORDERED: DIVA125C PO (08:08)
--- NOTE | 2017-04-28 08:16 | HHI.DS ---
Discharge Summary Admission Date Apr 18, 2017 at 11:09 Discharge Date: Apr 28, 2017 Admitting Diagnosis UTI, Sepsis (1) Sepsis ICD Code: A41.9 - Sepsis, unspecified organism Diagnosis: Principal Status: Acute (2) Altered mental status ICD Code: R41.82 - Altered mental status, unspecified Diagnosis: Principal Status: Acute (3) UTI (urinary tract infection) ICD Code: N39.0 - Urinary tract infection, site not specified Status: Acute (4) GERD (gastroesophageal reflux disease) ICD Code: K21.9 - Gastro-esophageal reflux disease without esophagitis (5) Seizure ICD Code: R56.9 - Seizure Diagnosis: Principal (6) Alzheimer's dementia ICD Code: G30.9 - Alzheimer's disease, unspecified Diagnosis: Secondary Status: Chronic (7) Depression ICD Code: F32.9 - Major depressive disorder, single episode, unspecified Diagnosis: Secondary Status: Chronic (8) Hypertension ICD Code: I10 - Essential (primary) hypertension Diagnosis: Principal (9) Anxiety ICD Code: F41.9 - Anxiety disorder, unspecified Diagnosis: Secondary Procedures NONE Brief History - From Admission Patient is an 82-year-old female brought in from the long-term facility after an episode of vomiting and diarrhea. Per EMS staff was helpful at her baseline had some episode of vomiting and episode of loose stools and has states the blood pressure was low on arrival but improved with positioning and by the time she came to emergency department and improved to almost normal with only 100 mL's of IV fluid has history of dementia usually awake and alert and able to follow some commands and moves all 4 extremities Was found to have urinary tract infection and will be admitted and treated with Rocephin. Patient is also noted to be a DO NOT RESUSCITATE. The paperwork has been red and made a DO NOT RESUSCITATE here Discussed with the patient are N and the emergency room physician CBC/BMP: 04/24/17 0712 04/27/17 4711 Significant Findings Laboratory Tests Test 04/26/17 11:35 04/27/17 04:50 04/28/17 06:22 Random Glucose 113 MG/DL (74-106) Calcium Level 8.1 MG/DL (8.5-10.1) 7.9 MG/DL (8.5-10.1) Potassium Level 3.3 MEQ/L (3.5-5.1) Chloride Level 112 MEQ/L (98-107) 112 MEQ/L (98-107) Estimat Glomerular Filtration Rate 82 ML/MIN (>89) 68 ML/MIN (>89) Carbon Dioxide Level 20.5 MEQ/L (21.0-32.0) Valproic Acid (Depakene) Level 6 MCG/ML (50-100) Imaging Last Impressions Carotid Artery Ultrasound 04/25/17 0000 Signed Impressions: Service Date/Time: Tuesday, April 25, 2017 13:47 - CONCLUSION: 1. Mild calcified plaque involving the carotid arteries bilaterally without hemodynamically significant stenosis. 2. Antegrade flow involving both vertebral arteries. Roni Fox Jr., MD Head CT 04/24/17 1400 Signed Impressions: Service Date/Time: April 14:40 - CONCLUSION: 1. No acute findings. Stable encephalomalacia right temporal and occipital lobes. Sudhir Hartman MD Head Magnetic Resonance Angiography 04/23/17 0000 Signed Impressions: Service Date/Time: Sunday, April 23, 2017 14:23 - CONCLUSION: There is a short segment stenosis of the origin of the left posterior communicating communicating artery which supplies almost all of the left posterior cerebral circulation. Xander Balderrama MD Brain MRI 04/23/17 0000 Signed Impressions: Service Date/Time: Sunday, April 23, 2017 14:23 - CONCLUSION: 1. No acute intracranial abnormality. 2. Encephalomalacia right occipital lobe. 3. Atrophy and chronic small vessel ischemic change. 4. Fluid signal within the mastoid air cells on the left. Clinical evaluation for any signs of acute mastoiditis suggested. Roni Fox Jr., MD Chest X-Ray 04/18/17 0000 Signed Impressions: Service Date/Time: Tuesday, April 18, 2017 09:29 - CONCLUSION: 1. No acute cardiopulmonary findings. Galo Elizalde MD Abdomen/Pelvis CT 04/18/17 0000 Signed Impressions: Service Date/Time: Tuesday, April 18, 2017 08:09 - CONCLUSION: 1. Diverticulosis without diverticulitis. 2. Status post cholecystectomy. 3. Small hiatal hernia. Abram F. Tocci, MD PE at Discharge awake alert, oriented x 1, speech clear and ff all commands, appropriate response, childlike anicteric, pupils equal- , good gag no nuchal rigidity lungs- no rales regular rhythm abdomen soft, + bowel sounds extremities no edema, LUE- PICC in place moves all extremities- spontaneously- no focal weakness no calf swelling or tenderness Pt update on day of discharge awake and alert, childlike good po intake moves all extremities PICC in place Hospital Course This is a 82-year-old female residing in SNF who presented with nausea vomiting Acute change in MS - S/P stroke alert TIA vs Seizure S/P TPA MS improved- near baseline Neurology ff along with us on dilantin 100 mg po q 8 level therapeutic- Increase Depakote 500 mg po tid today 04/28 continue Speech therapy for swallowing and cognitive evaluation- pureed diet check [place] level in 3 days - If depakote level therapeutic- DC dilantin per Neurology recommendations Sepsis secondary to UTI ESBL - on ertapenem. - Repeat Blood cx negative so far. ID ff - Continue Invanz X 14 days total. till 05/04 Hypokalemia-replaced. KHC03 25 meq po daily. x 7 days. recheck as OP Hypomagnesemia- improved Dementia - pleasant and cooperative. HYpertension Lisinopril to 20 mg daily,. increase Hydralazine to 50 mg po tid PT/OT daily speech therapy daily. Pureed diet Out of bed to chair daily tid DNR. TEDs/SCDs CM dC planning- DBHR today Pt Condition on Discharge: Stable Discharge Disposition: Discharge to SNF Discharge Time: > 30 minutes Discharge Instructions DIET: Follow Instructions for: Heart Healthy Diet Speech Therapy-Diet Recommends: Pureed Activities you can perform: Weight Bearing as Thomas Follow up Referrals: Neurology - 1 Week with Calvin Mendoza MD PCP Follow-up - 04/24/17 with SNF New Orders: DEPAKENE - 05/01/17 New Medications: Divalproex Sprinkles (Depakote Sprinkles) 125 mg Cap 500 MG PO TID for SZ for 30 Days, CAP Enoxaparin Inj (Lovenox Inj) 40 Mg/0.4 Ml Syr 40 MG SQ Q24H for prophylaxis for 14 Days, INJECTION Famotidine (Famotidine) 20 Mg Tab 10 MG PO BID for giPRO for 30 Days, #60 TAB Hydralazine HCl (Hydralazine HCl) 50 Mg Tablet 50 MG PO Q8HR for HTN for 30 Days, TAB Lisinopril (Lisinopril) 10 Mg Tab 20 MG PO DAILY for HTN for 30 Days, #60 TAB Potassium Bicarbonate Effervescent (K-Vescent) 25 Meq Tab 25 MEQ PO DAILY for electro for 7 Days, #7 TAB Quetiapine (Seroquel) 25 Mg Tab 12.5 MG PO HS for Agitation for 14 Days, #14 TAB Continued Medications: Alendronate (Fosamax) 70 Mg Tab 35 MG PO Q7D for Osteoporosis Treatment, #4 TAB 0 Refills Aspirin (Aspirin) 81 Mg Chew 81 MG CHEW DAILY, TAB 0 Refills B-Complex Vitamins (Vitamin B Complex) 1 Tab DAILY Citalopram (Citalopram) 10 Mg Tab 10 MG PO DAILY for Control Depression, #30 TAB 0 Refills Metoprolol Succinate ER 24 HR (Metoprolol Succinate ER 24 HR) 25 Mg Tab 12.5 MG PO DAILY, #30 TAB 0 Refills Discontinued Medications: Ciprofloxacin (Ciprofloxacin) 250 Mg Tab 250 MG PO BID for Infection, #10 TAB [address] (Divalproex DR) 125 Mg Capdr 125 MG PO BID, CAP Magnesium Hydroxide Liq (Milk of Magnesia Liq) 400 Mg/5 Ml Susp 30 ML PO DAILY PRN for INDIGESTION OR UPSET STOMACH, #1 BOTTLE 0 Refills Quetiapine (Quetiapine) 25 Mg Tab 25 MG PO DAILY, #30 TAB 0 Refills Jemma Ching MD Apr 28, 2017 08:16
[2017-04-28] MEDS ORDERED: KLORCONEF PO (08:19)
[2017-04-28 08:26] LABS: BICARBONATE 25.4 MEQ/L (21.0-32.0)
[2017-04-28 08:57] LABS: POTASSIUM 4.2 MEQ/L (3.5-5.1)
[2017-04-28] MEDS: SODIUM CHLORIDE 0.9% FLUSH 10 ML FLUSH IV FLUSH SCH (09:00)
[2017-04-28] MEDS ORDERED: DIVALPROEX SODIUM SPRINKLES 125 MG CAP PO SCH (09:00)
[2017-04-28] MEDS: CITALOPRAM HYDROBROMIDE 20 MG TAB PO SCH (09:55)
[2017-04-28] MEDS: ASPIRIN 325 MG TAB PO SCH (09:55)
[2017-04-28] MEDS: FAMOTIDINE 20 MG TAB PO SCH (09:55)
[2017-04-28] MEDS: PANTOPRAZOLE SODIUM 40 MG VIAL IV PUSH SCH (09:55)
[2017-04-28] MEDS: DOCUSATE SODIUM 50 MG/SENNA 8.6 MG TAB PO SCH (09:55)
[2017-04-28] MEDS: POTASSIUM BICARBONATE 25 MEQ EFFERVESCENT TAB PO SCH (09:56)
[2017-04-28] MEDS: LISINOPRIL 20 MG TAB PO SCH (09:58)
[2017-04-28] MEDS ORDERED: hydrALAZINE HCL 50 MG TAB PO SCH (14:00)
== END 2017-04-28 11:36 | DRG 871 ==
LOC: NEPC 07:24 → NEDH 11:09 → N06A 13:48 → N05B 04-20 14:42 → HIMN 04-23 15:00 → N05B 04-25 18:04
PROVIDERS: ADMIT Hospitalist; ATTEND Internal Medicine
DX: A41.9 Sepsis, unspecified organism (principal); I63.512 Cerebral infarction due to unspecified occlusion or stenosis of left middle cerebral artery; G30.9 Alzheimer's disease, unspecified; F02.80 Dementia in other diseases classified elsewhere, unspecified severity, without behavioral disturbance, psychotic disturbance, mood disturbance, and anxiety; N39.0 Urinary tract infection, site not specified; R47.01 Aphasia; G45.9 Transient cerebral ischemic attack, unspecified; E83.42 Hypomagnesemia; I10 Essential (primary) hypertension; E87.6 Hypokalemia; R56.9 Unspecified convulsions; F32.9 Major depressive disorder, single episode, unspecified; K21.9 Gastro-esophageal reflux disease without esophagitis; F41.9 Anxiety disorder, unspecified; B96.20 Unspecified Escherichia coli [E. coli] as the cause of diseases classified elsewhere; B95.4 Other streptococcus as the cause of diseases classified elsewhere; Z16.12 Extended spectrum beta lactamase (ESBL) resistance; Z86.73 Personal history of transient ischemic attack (TIA), and cerebral infarction without residual deficits; Z88.8 Allergy status to other drugs, medicaments and biological substances
CPT/HCPCS: 36569; 70450; 70544; 70551; 71010; 74176; 76937; 80048; 80053; 80061; 80164; 80185; 81001; 82435; 82550; 82565; 82607; 82947; 82948; 83036; 83605; 83735; 84100; 84132; 84295; 84439; 84443; 84484; 84520; 85025; 85027; 85384; 85610; 85652; 85730; 86403; 86850; 86900; 86901; 87040; 87077; 87086; 87186; 87205; 93005; 93880; 95819; 96374; 96375; 96376; C9113; J0696; J1335; J1630; J1650; J2405; J2543; J2997; J3370; J3475; J3480; J7030; J7050; Q2009